=== PATIENT | female | born 1950 | race Caucasian/White ===

== ENCOUNTER 2017-10-24 14:54 | Inpatient (IN) | payer OTHER ==
[2017-10-24] MEDS: LABETALOL HCL 20MG INJ IV (21:28)
[2017-10-24] MEDS: SOD CHLORIDE 0.9% 1,000 ML IV ×3 (21:28→22:46)
[2017-10-24 21:30] LABS: ADD MAN DIFF? NO
[2017-10-24 21:40] LABS: WHITE BLOOD COUNT 7.3 10^3/ul (4.8-10.8)
[2017-10-24 21:40] LABS: BASOPHIL # 0.1 10^3/ul (0.0-0.1); BASOPHILS % 0.7 % (0.0-2.0); EOSINOPHILS # 0.2 10^3/ul (0.0-0.5); EOSINOPHILS % 2.1 % (0.0-7.0); HEMATOCRIT 28.4 % (37.0-47.0); HEMOGLOBIN 9.8 g/dl (12.0-16.0); LYMPHOCYTES # 2.3 10^3/ul (0.8-2.9); LYMPHOCYTES % 32.1 % (15.0-51.0); MEAN CORPUSCULAR HEMOGLOBIN 29.2 pg (29.0-33.0); MEAN CORPUSCULAR HGB CONC 34.5 g/dl (32.0-37.0); MEAN CORPUSCULAR VOLUME 84.5 fl (82.0-101.0); MEAN PLATELET VOLUME 10.5 fl (7.4-10.4); MONOCYTE # 0.5 10^3/ul (0.3-0.9); NEUTROPHIL # 4.2 10^3/ul (1.6-7.5); NEUTROPHILS % 57.3 % (39.0-77.0); PLATELET COUNT 228 10^3/UL (140-415); RED BLOOD COUNT 3.36 10^6/ul (4.20-5.40); RED CELL DISTRIBUTION WIDTH 12.5 % (11.5-14.5)
[2017-10-24 22:07] LABS: ANION GAP 15 (8-16); BLOOD UREA NITROGEN 24 mg/dl (7-20); CALCIUM 8.5 mg/dl (8.4-10.2); CARBON DIOXIDE 23 mmol/L (21-31); CHLORIDE 93 mmol/L (97-110); CREATININE 1.92 mg/dl (0.44-1.00); POTASSIUM 4.6 mmol/L (3.5-5.1); SODIUM 126 mmol/L (135-144)
[2017-10-24 22:08] LABS: Allen Test ACCEPTAB; MODE ROOM AIR; MetHgb Venous 0.6 %; Sample Type Blood venous; Site VENOUS LINE; Venous COHb 0.2 %; Venous Fraction OxyHgb 34.9 %; Venous Oxygen Sat 35.2 mmHG (55.0-75.0); Venous Total Hemglobin 11.2 g/dl
[2017-10-24 22:10] LABS: GLUCOSE 593 mg/dl (70-220)
[2017-10-24 22:18] LABS: B-TYPE NATRIURETIC PEPTIDE 2670 PG/ML (0-125)
[2017-10-24 23:09] LABS: ADD UMIC YES; UR ASCORBIC ACID NEGATIVE (NEGATIVE); UR BACTERIA MANY /HPF (NONE SEEN); UR BILIRUBIN (Dip) NEGATIVE (NEGATIVE); UR BLOOD (Dip) NEGATIVE (NEGATIVE); UR CLARITY CLOUDY (CLEAR); UR COLOR YELLOW (YELLOW); UR GLUCOSE (Dip) 3+ mg/dL (NEGATIVE); UR KETONES (Dip) NEGATIVE (NEGATIVE); UR LEUKOCYTE ESTERASE (Dip) 2+ Leu/ul (NEGATIVE); UR NITRITE (Dip) NEGATIVE (NEGATIVE); UR RBC 8 /HPF (0-5); UR SPECIFIC GRAVITY (Dip) 1.025 (1.003-1.030); UR SQUAMOUS EPITHELIAL CELL FEW /HPF (FEW); UR TOTAL PROTEIN (Dip) 3+ mg/dl (NEGATIVE); UR UROBILINOGEN (Dip) NEGATIVE (NEGATIVE); UR WBC > 182 /HPF (0-5)
[2017-10-25] MEDS: CEFEPIME 1GM/50 ML (PMX) 50 ML IVPB (00:15)
[2017-10-25] MEDS: INSULIN LISPRO 100 UNIT/ML VIAL SC (00:17)
[2017-10-25] MEDS ORDERED: ONDANSETRON 4 MG INJ IV (00:30)
[2017-10-25] MEDS ORDERED: PANTOPRAZOLE (EC) 40 MG TAB PO (00:30)
[2017-10-25] MEDS ORDERED: BISACODYL (EC) 5 MG TAB PO (00:30)
[2017-10-25] MEDS ORDERED: NACL 0.9% 3 ML SYG IV (00:30)
[2017-10-25] MEDS ORDERED: ACETAMINOPHEN 325 MG TAB PO (00:30)
[2017-10-25] MEDS ORDERED: GLUCOSE GEL 15 GRAM TUBE BUCCAL (01:00)
[2017-10-25] MEDS ORDERED: GLUCAGON 1 MG INJ IM (01:00)
[2017-10-25] MEDS ORDERED: GLUCOSE GEL 15 GRAM TUBE PO ×2 (01:00)
[2017-10-25] MEDS ORDERED: DEXTROSE 50% 50 ML SYRINGE IV ×2 (01:00)
[2017-10-25] MEDS: ACCU-CHEK XX (02:00)
[2017-10-25] MEDS: INSULIN ASPART [NOVOLOG] 3 ML PEN SC ×7 (03:30→20:15)
[2017-10-25] MEDS: hydrALAzine 20 MG INJ IV ×2 (03:40→15:37)
[2017-10-25 03:46] LABS: ANION GAP 12 (8-16); BLOOD UREA NITROGEN 21 mg/dl (7-20); CALCIUM 7.8 mg/dl (8.4-10.2); CARBON DIOXIDE 23 mmol/L (21-31); CHLORIDE 106 mmol/L (97-110); CREATININE 1.59 mg/dl (0.44-1.00); GLUCOSE 305 mg/dl (70-220); POTASSIUM 4.1 mmol/L (3.5-5.1); SODIUM 137 mmol/L (135-144)
[2017-10-25] MEDS: morphine 2 MG INJ IV (07:31)
[2017-10-25] MEDS: CYCLOBENZAPRINE 10 MG TAB PO (08:00)
[2017-10-25 08:34] LABS: ANION GAP 12 (8-16); BLOOD UREA NITROGEN 20 mg/dl (7-20); CALCIUM 7.9 mg/dl (8.4-10.2); CARBON DIOXIDE 21 mmol/L (21-31); CHLORIDE 108 mmol/L (97-110); CREATININE 1.43 mg/dl (0.44-1.00); GLUCOSE 163 mg/dl (70-220); POTASSIUM 4.1 mmol/L (3.5-5.1); SODIUM 137 mmol/L (135-144)
[2017-10-25] MEDS: CEFTRIAXONE 1 GM/50 ML (PMX) 50 ML IVPB (09:00)
[2017-10-25] MEDS ORDERED: INSULIN GLARGINE [LANtus] 3 ML PEN SC (09:00)
[2017-10-25] MEDS: ASPIRIN (EC) 81 MG TAB PO (09:38)
[2017-10-25 10:15] LABS: HEMOGLOBIN A1C 12.7 % (0-5.9)
[2017-10-25] MEDS ORDERED: INSULIN ASPART [NOVOLOG] 3 ML PEN SC (11:50)
[2017-10-25 11:53] LABS: ANION GAP 10 (8-16); BLOOD UREA NITROGEN 19 mg/dl (7-20); CALCIUM 8.5 mg/dl (8.4-10.2); CARBON DIOXIDE 21 mmol/L (21-31); CHLORIDE 105 mmol/L (97-110); CREATININE 1.48 mg/dl (0.44-1.00); GLUCOSE 272 mg/dl (70-220); POTASSIUM 4.2 mmol/L (3.5-5.1); SODIUM 132 mmol/L (135-144)
[2017-10-25 16:36] LABS: ANION GAP 11 (8-16); BLOOD UREA NITROGEN 20 mg/dl (7-20); CALCIUM 8.1 mg/dl (8.4-10.2); CARBON DIOXIDE 22 mmol/L (21-31); CHLORIDE 105 mmol/L (97-110); CREATININE 1.51 mg/dl (0.44-1.00); GLUCOSE 244 mg/dl (70-220); POTASSIUM 4.4 mmol/L (3.5-5.1); SODIUM 134 mmol/L (135-144)
[2017-10-25] MEDS: ATORVASTATIN 80 MG TAB PO (20:15)
[2017-10-26] MEDS: ACCU-CHEK XX (02:00)
[2017-10-26] MEDS ORDERED: ACCU-CHEK XX (02:00)
[2017-10-26 08:01] LABS: ADD MAN DIFF? NO
[2017-10-26 08:03] LABS: BASOPHILS % 0.5 % (0.0-2.0); EOSINOPHILS # 0.3 10^3/ul (0.0-0.5); EOSINOPHILS % 3.2 % (0.0-7.0); HEMATOCRIT 28.4 % (37.0-47.0); HEMOGLOBIN 9.8 g/dl (12.0-16.0); LYMPHOCYTES # 2.4 10^3/ul (0.8-2.9); LYMPHOCYTES % 30.2 % (15.0-51.0); MEAN CORPUSCULAR HEMOGLOBIN 29.1 pg (29.0-33.0); MEAN CORPUSCULAR HGB CONC 34.5 g/dl (32.0-37.0); MEAN CORPUSCULAR VOLUME 84.3 fl (82.0-101.0); MEAN PLATELET VOLUME 10.5 fl (7.4-10.4); MONOCYTE # 0.5 10^3/ul (0.3-0.9); MONOCYTES % 5.6 % (0.0-11.0); NEUTROPHIL # 4.8 10^3/ul (1.6-7.5); NEUTROPHILS % 59.9 % (39.0-77.0); PLATELET COUNT 229 10^3/UL (140-415); RED BLOOD COUNT 3.37 10^6/ul (4.20-5.40); RED CELL DISTRIBUTION WIDTH 12.8 % (11.5-14.5)
[2017-10-26 08:22] LABS: ALANINE AMINOTRANSFERASE 21 IU/L (13-69); ALBUMIN 3.1 g/dl (3.3-4.9); ALBUMIN/GLOBULIN RATIO 0.93; ALKALINE PHOSPHATASE 87 IU/L (42-121); ANION GAP 14 (8-16); ASPARTATE AMINO TRANSFERASE 14 IU/L (15-46); BILIRUBIN,INDIRECT 0.1 mg/dl (0-1.1); BILIRUBIN,TOTAL 0.1 mg/dl (0.2-1.3); BLOOD UREA NITROGEN 19 mg/dl (7-20); CALCIUM 8.7 mg/dl (8.4-10.2); CARBON DIOXIDE 22 mmol/L (21-31); CHLORIDE 105 mmol/L (97-110); CREATININE 1.64 mg/dl (0.44-1.00); GLUCOSE 229 mg/dl (70-220); POTASSIUM 4.7 mmol/L (3.5-5.1); SODIUM 136 mmol/L (135-144); TOTAL PROTEIN 6.4 g/dl (6.1-8.1)
[2017-10-26 08:37] LABS: INR 0.95; PROTIME 12.8 Sec (11.9-14.9)
[2017-10-26 08:38] LABS: PARTIAL THROMBOPLASTIN TIME 28.1 Sec (25.0-35.0)
[2017-10-26] MEDS: ASPIRIN (EC) 81 MG TAB PO (08:46)
[2017-10-26] MEDS: INSULIN ASPART [NOVOLOG] 3 ML PEN SC ×7 (08:48→21:06)
[2017-10-26] MEDS: INSULIN GLARGINE [LANtus] 3 ML PEN SC (08:50)
[2017-10-26] MEDS: CEFTRIAXONE 1 GM/50 ML (PMX) 50 ML IVPB (13:40)
[2017-10-26 15:50] LABS: IRON 53 ug/dl (35-150)
[2017-10-26 16:00] LABS: % IRON SATURATION 28 % SAT (22-52); TOTAL IRON BINDING CAPACITY 187 ug/dl (241-421)
[2017-10-26] MEDS: hydrALAzine 20 MG INJ IV (16:11)
[2017-10-26 16:23] LABS: FERRITIN 30.5 ng/ml (11.1-264.0)
[2017-10-26] MEDS: ATORVASTATIN 80 MG TAB PO (20:54)
[2017-10-27] MEDS: ACCU-CHEK XX (02:00)
[2017-10-27 06:43] LABS: ADD MAN DIFF? NO
[2017-10-27 06:51] LABS: BASOPHILS % 0.4 % (0.0-2.0); EOSINOPHILS # 0.2 10^3/ul (0.0-0.5); EOSINOPHILS % 3.3 % (0.0-7.0); HEMATOCRIT 27.2 % (37.0-47.0); HEMOGLOBIN 9.3 g/dl (12.0-16.0); LYMPHOCYTES # 2.5 10^3/ul (0.8-2.9); LYMPHOCYTES % 34.1 % (15.0-51.0); MEAN CORPUSCULAR HEMOGLOBIN 29.3 pg (29.0-33.0); MEAN CORPUSCULAR HGB CONC 34.2 g/dl (32.0-37.0); MEAN CORPUSCULAR VOLUME 85.8 fl (82.0-101.0); MEAN PLATELET VOLUME 10.3 fl (7.4-10.4); MONOCYTE # 0.5 10^3/ul (0.3-0.9); MONOCYTES % 7.1 % (0.0-11.0); NEUTROPHILS % 54.6 % (39.0-77.0); PLATELET COUNT 206 10^3/UL (140-415); RED BLOOD COUNT 3.17 10^6/ul (4.20-5.40); RED CELL DISTRIBUTION WIDTH 12.7 % (11.5-14.5)
[2017-10-27 06:51] LABS: WHITE BLOOD COUNT 7.3 10^3/ul (4.8-10.8)
[2017-10-27 07:13] LABS: ANION GAP 9 (8-16); BLOOD UREA NITROGEN 19 mg/dl (7-20); CALCIUM 8.9 mg/dl (8.4-10.2); CARBON DIOXIDE 25 mmol/L (21-31); CHLORIDE 106 mmol/L (97-110); GLUCOSE 185 mg/dl (70-220); POTASSIUM 4.5 mmol/L (3.5-5.1); SODIUM 135 mmol/L (135-144)
[2017-10-27 07:21] LABS: PHOSPHORUS 4.7 mg/dl (2.5-4.9)
[2017-10-27 07:21] LABS: MAGNESIUM 1.8 mg/dl (1.7-2.5)
[2017-10-27] MEDS: ASPIRIN (EC) 81 MG TAB PO (08:18)
[2017-10-27] MEDS: INSULIN ASPART [NOVOLOG] 3 ML PEN SC ×7 (08:22→20:33)
[2017-10-27] MEDS: INSULIN GLARGINE [LANtus] 3 ML PEN SC (08:24)
[2017-10-27] MEDS: INFLUENZA VIRUS VACCINE 0.5 ML (DISPENSING) IM* (08:27)
[2017-10-27] MEDS: CEFTRIAXONE 1 GM/50 ML (PMX) 50 ML IVPB (14:01)
[2017-10-27] MEDS: ACETAMINOPHEN 325 MG TAB PO (14:10)
[2017-10-27] MEDS: hydrALAzine 20 MG INJ IV ×2 (14:44→17:49)
[2017-10-27] MEDS: LISINOPRIL 5 MG TAB PO (15:53)
[2017-10-27] MEDS: ONDANSETRON 4 MG INJ IV (17:45)
[2017-10-27] MEDS: HYDROCODONE/APAP (5/325) TAB PO (17:47)
[2017-10-27] MEDS: ATORVASTATIN 80 MG TAB PO (20:35)
[2017-10-28] MEDS: HYDROCODONE/APAP (5/325) TAB PO ×3 (00:42→23:51)
[2017-10-28] MEDS: ONDANSETRON 4 MG INJ IV (00:56)
[2017-10-28] MEDS: ACCU-CHEK XX (02:00)
[2017-10-28 06:49] LABS: ADD MAN DIFF? NO
[2017-10-28 06:51] LABS: WHITE BLOOD COUNT 9.3 10^3/ul (4.8-10.8)
[2017-10-28 06:51] LABS: BASOPHILS % 0.3 % (0.0-2.0); EOSINOPHILS % 0.4 % (0.0-7.0); HEMATOCRIT 27.5 % (37.0-47.0); HEMOGLOBIN 9.2 g/dl (12.0-16.0); LYMPHOCYTES # 1.9 10^3/ul (0.8-2.9); LYMPHOCYTES % 20.2 % (15.0-51.0); MEAN CORPUSCULAR HEMOGLOBIN 28.9 pg (29.0-33.0); MEAN CORPUSCULAR HGB CONC 33.5 g/dl (32.0-37.0); MEAN CORPUSCULAR VOLUME 86.5 fl (82.0-101.0); MEAN PLATELET VOLUME 10.7 fl (7.4-10.4); MONOCYTE # 0.3 10^3/ul (0.3-0.9); MONOCYTES % 3.2 % (0.0-11.0); NEUTROPHILS % 75.5 % (39.0-77.0); PLATELET COUNT 219 10^3/UL (140-415); RED BLOOD COUNT 3.18 10^6/ul (4.20-5.40); RED CELL DISTRIBUTION WIDTH 12.8 % (11.5-14.5)
[2017-10-28 07:21] LABS: PHOSPHORUS 5.1 mg/dl (2.5-4.9)
[2017-10-28 07:21] LABS: MAGNESIUM 1.7 mg/dl (1.7-2.5)
[2017-10-28 07:29] LABS: ANION GAP 15 (8-16); BLOOD UREA NITROGEN 20 mg/dl (7-20); CALCIUM 8.4 mg/dl (8.4-10.2); CARBON DIOXIDE 21 mmol/L (21-31); CHLORIDE 102 mmol/L (97-110); CREATININE 1.73 mg/dl (0.44-1.00); GLUCOSE 205 mg/dl (70-220); POTASSIUM 4.5 mmol/L (3.5-5.1); SODIUM 133 mmol/L (135-144)
[2017-10-28] MEDS: INSULIN ASPART [NOVOLOG] 3 ML PEN SC ×7 (07:55→20:16)
[2017-10-28] MEDS: INSULIN GLARGINE [LANtus] 3 ML PEN SC (07:55)
[2017-10-28] MEDS: LINAGLIPTIN 5 MG TABLET PO (08:31)
[2017-10-28] MEDS: ASPIRIN (EC) 81 MG TAB PO (08:32)
[2017-10-28] MEDS: LISINOPRIL 5 MG TAB PO (08:32)
[2017-10-28] MEDS: CEFTRIAXONE 1 GM/50 ML (PMX) 50 ML IVPB (13:38)
[2017-10-28] MEDS: hydrALAzine 20 MG INJ IV (15:44)
[2017-10-28] MEDS ORDERED: ACET/BUTAL/CAFF TAB PO (17:00)
[2017-10-28] MEDS: SOD CHLORIDE 0.9% 1,000 ML IV (17:01)
[2017-10-28 17:41] LABS: CREATININE, RANDOM URINE 61 mg/dL (20-320); MICROALBUMIN 436.4 mg/dL; MICROALBUMIN/CREATININE RATIO 7154 (<30)
[2017-10-28] MEDS: ATORVASTATIN 80 MG TAB PO (20:16)
[2017-10-29] MEDS: ACCU-CHEK XX (02:00)
[2017-10-29 06:55] LABS: ADD MAN DIFF? NO
[2017-10-29 06:59] LABS: BASOPHILS % 0.5 % (0.0-2.0); EOSINOPHILS # 0.2 10^3/ul (0.0-0.5); EOSINOPHILS % 2.1 % (0.0-7.0); HEMATOCRIT 25.7 % (37.0-47.0); HEMOGLOBIN 8.9 g/dl (12.0-16.0); LYMPHOCYTES # 2.9 10^3/ul (0.8-2.9); LYMPHOCYTES % 35.8 % (15.0-51.0); MEAN CORPUSCULAR HEMOGLOBIN 29.9 pg (29.0-33.0); MEAN CORPUSCULAR HGB CONC 34.6 g/dl (32.0-37.0); MEAN CORPUSCULAR VOLUME 86.2 fl (82.0-101.0); MEAN PLATELET VOLUME 10.2 fl (7.4-10.4); MONOCYTE # 0.7 10^3/ul (0.3-0.9); MONOCYTES % 8.6 % (0.0-11.0); NEUTROPHIL # 4.2 10^3/ul (1.6-7.5); NEUTROPHILS % 52.6 % (39.0-77.0); PLATELET COUNT 202 10^3/UL (140-415); RED BLOOD COUNT 2.98 10^6/ul (4.20-5.40); RED CELL DISTRIBUTION WIDTH 12.6 % (11.5-14.5)
[2017-10-29 07:17] LABS: ANION GAP 12 (8-16); BLOOD UREA NITROGEN 22 mg/dl (7-20); CALCIUM 8.4 mg/dl (8.4-10.2); CARBON DIOXIDE 23 mmol/L (21-31); CHLORIDE 102 mmol/L (97-110); CREATININE 2.27 mg/dl (0.44-1.00); GLUCOSE 135 mg/dl (70-220); POTASSIUM 4.2 mmol/L (3.5-5.1); SODIUM 133 mmol/L (135-144)
[2017-10-29] MEDS: SOD CHLORIDE 0.9% 1,000 ML IV ×2 (07:18→16:46)
[2017-10-29] MEDS: INSULIN GLARGINE [LANtus] 3 ML PEN SC (08:52)
[2017-10-29] MEDS: INSULIN ASPART [NOVOLOG] 3 ML PEN SC ×7 (08:53→20:28)
[2017-10-29] MEDS: ASPIRIN (EC) 81 MG TAB PO (08:59)
[2017-10-29] MEDS: LISINOPRIL 5 MG TAB PO (08:59)
[2017-10-29] MEDS: LINAGLIPTIN 5 MG TABLET PO (08:59)
[2017-10-29] MEDS: CEFTRIAXONE 1 GM/50 ML (PMX) 50 ML IVPB (13:12)
[2017-10-29 17:28] LABS: HAAIG REFLEX REFLEX FILED
[2017-10-29 18:13] LABS: COMPLEMENT C3 103 mg/dl (88-165); COMPLEMENT C4 37 mg/dl (14-44)
[2017-10-29 18:36] LABS: HEPATITIS B SURFACE ANTIGEN NEGATIVE (NEGATIVE)
[2017-10-29 18:54] LABS: HEPATITIS B CORE ANTIBODY NEGATIVE (NEGATIVE); HEPATITIS C VIRAL ANTIBODY NEGATIVE (NEGATIVE)
[2017-10-29 19:54] LABS: RHEUMATOID FACTOR NEGATIVE (NEGATIVE)
[2017-10-29] MEDS: ATORVASTATIN 80 MG TAB PO (20:24)
[2017-10-29] MEDS ORDERED: LISINOPRIL 5 MG TAB PO (21:00)
[2017-10-30] MEDS: HYDROCODONE/APAP (5/325) TAB PO (00:53)
[2017-10-30] MEDS: ACCU-CHEK XX ×2 (02:00→21:47)
[2017-10-30] MEDS: INSULIN ASPART [NOVOLOG] 3 ML PEN SC ×7 (08:16→21:00)
[2017-10-30] MEDS: INSULIN GLARGINE [LANtus] 3 ML PEN SC (08:17)
[2017-10-30] MEDS: ASPIRIN (EC) 81 MG TAB PO (08:33)
[2017-10-30] MEDS: LINAGLIPTIN 5 MG TABLET PO (08:34)
[2017-10-30 08:51] LABS: ANION GAP 11 (8-16); BLOOD UREA NITROGEN 27 mg/dl (7-20); CALCIUM 8.8 mg/dl (8.4-10.2); CARBON DIOXIDE 23 mmol/L (21-31); CHLORIDE 103 mmol/L (97-110); CREATININE 2.44 mg/dl (0.44-1.00); GLUCOSE 144 mg/dl (70-220); POTASSIUM 4.4 mmol/L (3.5-5.1); SODIUM 133 mmol/L (135-144)
[2017-10-30 08:53] LABS: PHOSPHORUS 5.8 mg/dl (2.5-4.9)
[2017-10-30 08:53] LABS: MAGNESIUM 1.9 mg/dl (1.7-2.5)
[2017-10-30 11:10] LABS: ADD UMIC YES; UR ASCORBIC ACID NEGATIVE (NEGATIVE); UR BACTERIA FEW /HPF (NONE SEEN); UR BILIRUBIN (Dip) NEGATIVE (NEGATIVE); UR BLOOD (Dip) NEGATIVE (NEGATIVE); UR BUDDING YEAST FEW /HPF (NONE SEEN); UR CLARITY SLIGHTLY CLOUDY (CLEAR); UR COLOR YELLOW (YELLOW); UR GLUCOSE (Dip) 1+ mg/dL (NEGATIVE); UR KETONES (Dip) NEGATIVE (NEGATIVE); UR LEUKOCYTE ESTERASE (Dip) 1+ Leu/ul (NEGATIVE); UR NITRITE (Dip) NEGATIVE (NEGATIVE); UR NONSQUAMOUS EPITHELIAL CELL 2 /HPF (NONE SEEN); UR RBC 2 /HPF (0-5); UR SPECIFIC GRAVITY (Dip) 1.015 (1.003-1.030); UR SQUAMOUS EPITHELIAL CELL FEW /HPF (FEW); UR TOTAL PROTEIN (Dip) 3+ mg/dl (NEGATIVE); UR UROBILINOGEN (Dip) NEGATIVE (NEGATIVE); UR WBC 98 /HPF (0-5)
[2017-10-30 11:47] LABS: SODIUM,URINE RANDOM 47 mmol/L (30-90)
[2017-10-30 11:47] LABS: CREATININE,URINE RANDOM 112.06 mg/dl (20-320)
[2017-10-30] MEDS: LACTATED RINGER'S 500 ML IV (13:17)
[2017-10-30] MEDS: CEFTRIAXONE 1 GM/50 ML (PMX) 50 ML IVPB (13:17)
[2017-10-30] MEDS: hydrALAzine 20 MG INJ IV (18:19)
[2017-10-30] MEDS: ATORVASTATIN 80 MG TAB PO (21:37)
[2017-10-30] MEDS: DOCUSATE SODIUM 100 MG CAP PO (21:47)
[2017-10-31] MEDS: INSULIN ASPART [NOVOLOG] 3 ML PEN SC ×4 (07:55→11:39)
[2017-10-31 08:21] LABS: ADD MAN DIFF? NO
[2017-10-31 08:32] LABS: BASOPHIL # 0.1 10^3/ul (0.0-0.1); BASOPHILS % 0.7 % (0.0-2.0); EOSINOPHILS # 0.3 10^3/ul (0.0-0.5); EOSINOPHILS % 3.6 % (0.0-7.0); HEMATOCRIT 24.6 % (37.0-47.0); HEMOGLOBIN 8.3 g/dl (12.0-16.0); LYMPHOCYTES # 2.4 10^3/ul (0.8-2.9); LYMPHOCYTES % 34.5 % (15.0-51.0); MEAN CORPUSCULAR HEMOGLOBIN 29.4 pg (29.0-33.0); MEAN CORPUSCULAR HGB CONC 33.7 g/dl (32.0-37.0); MEAN CORPUSCULAR VOLUME 87.2 fl (82.0-101.0); MEAN PLATELET VOLUME 11.3 fl (7.4-10.4); MONOCYTE # 0.8 10^3/ul (0.3-0.9); MONOCYTES % 10.9 % (0.0-11.0); NEUTROPHIL # 3.5 10^3/ul (1.6-7.5); NEUTROPHILS % 49.9 % (39.0-77.0); PLATELET COUNT 194 10^3/UL (140-415); RED BLOOD COUNT 2.82 10^6/ul (4.20-5.40); RED CELL DISTRIBUTION WIDTH 12.7 % (11.5-14.5)
[2017-10-31] MEDS: INSULIN GLARGINE [LANtus] 3 ML PEN SC (08:38)
[2017-10-31 08:52] LABS: ANION GAP 13 (8-16); BLOOD UREA NITROGEN 28 mg/dl (7-20); CALCIUM 8.2 mg/dl (8.4-10.2); CARBON DIOXIDE 22 mmol/L (21-31); CHLORIDE 105 mmol/L (97-110); CREATININE 2.25 mg/dl (0.44-1.00); GLUCOSE 102 mg/dl (70-220); PHOSPHORUS 5.1 mg/dl (2.5-4.9); POTASSIUM 4.9 mmol/L (3.5-5.1); SODIUM 135 mmol/L (135-144)
[2017-10-31] MEDS: ASPIRIN (EC) 81 MG TAB PO (09:18)
[2017-10-31] MEDS: LINAGLIPTIN 5 MG TABLET PO (09:18)
[2017-10-31] MEDS: AMLODIPINE 5 MG TAB PO (11:30)
[2017-10-31 14:26] LABS: ANCA SCREEN NEGATIVE (NEGATIVE)
[2017-10-31 16:36] LABS: CREATININE, RANDOM URINE 132 mg/dL (20-320); MICROALBUMIN 538.5 mg/dL; MICROALBUMIN/CREATININE RATIO 4080 (<30); MYELOPEROXIDASE ANTIBODY <1.0 AI; PROTEINASE-3 ANTIBODY <1.0 AI
[2017-10-31 19:37] LABS: ANA SCREEN POSITIVE (NEGATIVE)
[2017-11-01 12:41] LABS: ANA PATTERN HOMOGENEOUS
[2017-11-01 14:57] LABS: ANTI-DNA (DOUBLE STRANDED) 134 U/mL (< 301)
== END 2017-10-31 16:20 | disposition home or self-care (01) | DRG 638 ==
LOC: TEL 10-25 00:18 → E/R 14:54
PROVIDERS: Family Medicine
DX: E11.65 Type 2 diabetes mellitus with hyperglycemia (principal); N39.0 Urinary tract infection, site not specified; N17.9 Acute kidney failure, unspecified; E87.1 Hypo-osmolality and hyponatremia; E86.0 Dehydration; I16.0 Hypertensive urgency; I12.9 Hypertensive chronic kidney disease with stage 1 through stage 4 chronic kidney disease, or unspecified chronic kidney disease; E11.22 Type 2 diabetes mellitus with diabetic chronic kidney disease; I25.10 Atherosclerotic heart disease of native coronary artery without angina pectoris; Z95.1 Presence of aortocoronary bypass graft; N18.3 Chronic kidney disease, stage 3 (moderate); D63.1 Anemia in chronic kidney disease; E78.5 Hyperlipidemia, unspecified; I51.89 Other ill-defined heart diseases; B96.20 Unspecified Escherichia coli [E. coli] as the cause of diseases classified elsewhere; M89.9 Disorder of bone, unspecified
CPT/HCPCS: 36415; 70450; 71045; 76775; 80048; 80053; 81001; 81003; 82043; 82595; 82728; 82803; 82962; 83036; 83540; 83735; 83880; 84100; 84155; 84300; 84443; 84484; 85025; 85610; 85730; 86021; 86038; 86160; 86226; 86430; 86704; 86709; 86803; 87086; 87340; 90686; 93005; 93306; 96361; 96365; 96372; 96375; 99285-25

== ENCOUNTER 2017-12-27 13:19 | Inpatient (IN) | payer OTHER ==
[2017-12-27] MEDS: SOD CHLORIDE 0.9% 500 ML IV (14:13)
[2017-12-27 14:17] LABS: ADD MAN DIFF? NO
[2017-12-27 14:23] LABS: WHITE BLOOD COUNT 8.2 10^3/ul (4.8-10.8)
[2017-12-27 14:23] LABS: BASOPHILS % 0.5 % (0.0-2.0); EOSINOPHILS # 0.3 10^3/ul (0.0-0.5); HEMATOCRIT 24.6 % (37.0-47.0); HEMOGLOBIN 8.3 g/dl (12.0-16.0); LYMPHOCYTES # 3.1 10^3/ul (0.8-2.9); LYMPHOCYTES % 37.7 % (15.0-51.0); MEAN CORPUSCULAR HEMOGLOBIN 29.6 pg (29.0-33.0); MEAN CORPUSCULAR HGB CONC 33.7 g/dl (32.0-37.0); MEAN CORPUSCULAR VOLUME 87.9 fl (82.0-101.0); MEAN PLATELET VOLUME 10.7 fl (7.4-10.4); MONOCYTE # 0.7 10^3/ul (0.3-0.9); MONOCYTES % 8.1 % (0.0-11.0); NEUTROPHIL # 4.1 10^3/ul (1.6-7.5); NEUTROPHILS % 50.2 % (39.0-77.0); PLATELET COUNT 196 10^3/UL (140-415); RED CELL DISTRIBUTION WIDTH 12.4 % (11.5-14.5)
[2017-12-27 14:37] LABS: ADD UMIC YES; UR ASCORBIC ACID NEGATIVE (NEGATIVE); UR BACTERIA FEW /HPF (NONE SEEN); UR BILIRUBIN (Dip) NEGATIVE (NEGATIVE); UR BLOOD (Dip) NEGATIVE (NEGATIVE); UR CLARITY CLEAR (CLEAR); UR COLOR YELLOW (YELLOW); UR GLUCOSE (Dip) 2+ mg/dL (NEGATIVE); UR KETONES (Dip) NEGATIVE (NEGATIVE); UR LEUKOCYTE ESTERASE (Dip) NEGATIVE Leu/ul (NEGATIVE); UR NITRITE (Dip) NEGATIVE (NEGATIVE); UR RBC 2 /HPF (0-5); UR SPECIFIC GRAVITY (Dip) 1.012 (1.003-1.030); UR TOTAL PROTEIN (Dip) 3+ mg/dl (NEGATIVE); UR UROBILINOGEN (Dip) NEGATIVE (NEGATIVE); UR WBC 27 /HPF (0-5)
[2017-12-27 14:42] LABS: ALANINE AMINOTRANSFERASE 18 IU/L (13-69); ALBUMIN 3.3 g/dl (3.3-4.9); ALBUMIN/GLOBULIN RATIO 0.91; ALKALINE PHOSPHATASE 76 IU/L (42-121); ANION GAP 20 (8-16); ASPARTATE AMINO TRANSFERASE 14 IU/L (15-46); BLOOD UREA NITROGEN 32 mg/dl (7-20); CALCIUM 8.5 mg/dl (8.4-10.2); CARBON DIOXIDE 19 mmol/L (21-31); CHLORIDE 112 mmol/L (97-110); CREATININE 2.87 mg/dl (0.44-1.00); GLUCOSE 132 mg/dl (70-220); LIPASE 46 U/L (23-300); POTASSIUM 4.9 mmol/L (3.5-5.1); SODIUM 146 mmol/L (135-144); TOTAL PROTEIN 6.9 g/dl (6.1-8.1)
[2017-12-27 14:58] LABS: TROPONIN-I < 0.012 ng/ml (0.00-0.12)
[2017-12-27] MEDS ORDERED: ONDANSETRON 4 MG INJ IV (15:30)
[2017-12-27] MEDS ORDERED: MAGNESIUM HYDROXIDE 30ML CUP PO (15:30)
[2017-12-27] MEDS ORDERED: morphine 2 MG INJ IV (15:30)
[2017-12-27] MEDS ORDERED: NACL 0.9% 3 ML SYG IV (15:30)
[2017-12-27] MEDS ORDERED: HYDROCODONE/APAP (5/325) TAB PO (15:30)
[2017-12-27] MEDS: CEPHALEXIN 500 MG CAP PO (15:32)
[2017-12-27] MEDS ORDERED: GLUCOSE GEL 15 GRAM TUBE BUCCAL (16:00)
[2017-12-27] MEDS ORDERED: GLUCAGON 1 MG INJ IM (16:00)
[2017-12-27] MEDS ORDERED: DEXTROSE 50% 50 ML SYRINGE IV ×2 (16:00)
[2017-12-27] MEDS ORDERED: GLUCOSE GEL 15 GRAM TUBE PO ×2 (16:00)
[2017-12-27 16:44] LABS: B-TYPE NATRIURETIC PEPTIDE 2950 PG/ML (0-125)
[2017-12-27] MEDS: FUROSEMIDE 40 MG INJ IV (17:28)
[2017-12-27] MEDS: INSULIN ASPART [NOVOLOG] 3 ML PEN SC ×3 (17:30→20:33)
[2017-12-27 18:36] LABS: SODIUM,URINE RANDOM 79 mmol/L (30-90)
[2017-12-27 18:38] LABS: CREATININE,URINE RANDOM 67.57 mg/dl (20-320)
[2017-12-27] MEDS: ATORVASTATIN 80 MG TAB PO (20:33)
[2017-12-27] MEDS: INSULIN GLARGINE [LANtus] 3 ML PEN SC (20:33)
[2017-12-27] MEDS: HEPARIN 5,000 UNIT/0.5 ML VIAL SC (22:06)
[2017-12-28] MEDS: ACCU-CHEK XX (02:00)
[2017-12-28 05:52] LABS: ADD MAN DIFF? NO
[2017-12-28 05:54] LABS: BASOPHILS % 0.3 % (0.0-2.0); EOSINOPHILS # 0.2 10^3/ul (0.0-0.5); EOSINOPHILS % 2.9 % (0.0-7.0); HEMATOCRIT 23.2 % (37.0-47.0); HEMOGLOBIN 7.8 g/dl (12.0-16.0); LYMPHOCYTES # 2.5 10^3/ul (0.8-2.9); LYMPHOCYTES % 34.4 % (15.0-51.0); MEAN CORPUSCULAR HEMOGLOBIN 29.3 pg (29.0-33.0); MEAN CORPUSCULAR HGB CONC 33.6 g/dl (32.0-37.0); MEAN CORPUSCULAR VOLUME 87.2 fl (82.0-101.0); MEAN PLATELET VOLUME 11.3 fl (7.4-10.4); MONOCYTE # 0.7 10^3/ul (0.3-0.9); MONOCYTES % 9.6 % (0.0-11.0); NEUTROPHIL # 3.9 10^3/ul (1.6-7.5); NEUTROPHILS % 52.4 % (39.0-77.0); PLATELET COUNT 172 10^3/UL (140-415); RED BLOOD COUNT 2.66 10^6/ul (4.20-5.40); RED CELL DISTRIBUTION WIDTH 12.2 % (11.5-14.5)
[2017-12-28 05:54] LABS: WHITE BLOOD COUNT 7.4 10^3/ul (4.8-10.8)
[2017-12-28 06:17] LABS: ALANINE AMINOTRANSFERASE 22 IU/L (13-69); ALBUMIN 2.8 g/dl (3.3-4.9); ALBUMIN/GLOBULIN RATIO 0.82; ALKALINE PHOSPHATASE 73 IU/L (42-121); ANION GAP 15 (8-16); ASPARTATE AMINO TRANSFERASE 11 IU/L (15-46); BLOOD UREA NITROGEN 34 mg/dl (7-20); CALCIUM 8.1 mg/dl (8.4-10.2); CARBON DIOXIDE 20 mmol/L (21-31); CHLORIDE 110 mmol/L (97-110); CREATININE 2.87 mg/dl (0.44-1.00); GLUCOSE 136 mg/dl (70-220); MAGNESIUM 1.7 mg/dl (1.7-2.5); POTASSIUM 4.4 mmol/L (3.5-5.1); SODIUM 141 mmol/L (135-144); TOTAL PROTEIN 6.2 g/dl (6.1-8.1)
[2017-12-28] MEDS: HEPARIN 5,000 UNIT/0.5 ML VIAL SC ×3 (06:17→22:00)
[2017-12-28 08:25] LABS: HEMOGLOBIN A1C 8.8 % (0-5.9)
[2017-12-28] MEDS: INSULIN ASPART [NOVOLOG] 3 ML PEN SC ×7 (08:29→20:26)
[2017-12-28] MEDS: LINAGLIPTIN 5 MG TABLET PO (08:30)
[2017-12-28] MEDS: ASPIRIN (EC) 81 MG TAB PO (08:30)
[2017-12-28] MEDS ORDERED: PREGABALIN 25 MG CAP PO (09:00)
[2017-12-28] MEDS ORDERED: AMLODIPINE 5 MG TAB PO (13:00)
[2017-12-28] MEDS: CIPROFLOXACIN 0.3% 2.5 ML OPH RIGHT EYE ×2 (17:33→20:24)
[2017-12-28] MEDS: ACETAMINOPHEN 325 MG TAB PO (19:09)
[2017-12-28] MEDS: INSULIN GLARGINE [LANtus] 3 ML PEN SC (20:24)
[2017-12-28] MEDS: ATORVASTATIN 80 MG TAB PO (20:24)
[2017-12-28] MEDS: hydrALAzine 20 MG INJ IV (20:36)
[2017-12-29] MEDS: ACCU-CHEK XX (02:00)
[2017-12-29 05:36] LABS: ADD MAN DIFF? NO
[2017-12-29 05:46] LABS: WHITE BLOOD COUNT 6.9 10^3/ul (4.8-10.8)
[2017-12-29 05:46] LABS: BASOPHILS % 0.3 % (0.0-2.0); EOSINOPHILS # 0.2 10^3/ul (0.0-0.5); EOSINOPHILS % 3.2 % (0.0-7.0); HEMATOCRIT 23.9 % (37.0-47.0); HEMOGLOBIN 8.2 g/dl (12.0-16.0); LYMPHOCYTES # 2.4 10^3/ul (0.8-2.9); LYMPHOCYTES % 34.3 % (15.0-51.0); MEAN CORPUSCULAR HEMOGLOBIN 29.4 pg (29.0-33.0); MEAN CORPUSCULAR HGB CONC 34.3 g/dl (32.0-37.0); MEAN CORPUSCULAR VOLUME 85.7 fl (82.0-101.0); MEAN PLATELET VOLUME 11.3 fl (7.4-10.4); MONOCYTE # 0.7 10^3/ul (0.3-0.9); MONOCYTES % 9.7 % (0.0-11.0); NEUTROPHIL # 3.6 10^3/ul (1.6-7.5); NEUTROPHILS % 52.1 % (39.0-77.0); PLATELET COUNT 171 10^3/UL (140-415); RED BLOOD COUNT 2.79 10^6/ul (4.20-5.40); RED CELL DISTRIBUTION WIDTH 12.2 % (11.5-14.5)
[2017-12-29 06:23] LABS: ANION GAP 15 (8-16); BLOOD UREA NITROGEN 36 mg/dl (7-20); CALCIUM 8.8 mg/dl (8.4-10.2); CARBON DIOXIDE 22 mmol/L (21-31); CHLORIDE 110 mmol/L (97-110); CREATININE 2.62 mg/dl (0.44-1.00); GLUCOSE 95 mg/dl (70-220); MAGNESIUM 1.8 mg/dl (1.7-2.5); PHOSPHORUS 4.9 mg/dl (2.5-4.9); POTASSIUM 4.7 mmol/L (3.5-5.1); SODIUM 142 mmol/L (135-144)
[2017-12-29] MEDS: HEPARIN 5,000 UNIT/0.5 ML VIAL SC ×3 (06:39→22:32)
[2017-12-29] MEDS: hydrALAzine 20 MG INJ IV (07:45)
[2017-12-29] MEDS: FUROSEMIDE 40 MG INJ IV (07:45)
[2017-12-29] MEDS: INSULIN ASPART [NOVOLOG] 3 ML PEN SC ×7 (07:50→20:45)
[2017-12-29] MEDS: ASPIRIN (EC) 81 MG TAB PO (09:06)
[2017-12-29] MEDS: LINAGLIPTIN 5 MG TABLET PO (09:06)
[2017-12-29] MEDS: CIPROFLOXACIN 0.3% 2.5 ML OPH RIGHT EYE ×3 (09:07→20:43)
[2017-12-29] MEDS: INSULIN GLARGINE [LANtus] 3 ML PEN SC (20:00)
[2017-12-29] MEDS: ATORVASTATIN 80 MG TAB PO (20:42)
[2017-12-30] MEDS: ACCU-CHEK XX (02:00)
[2017-12-30 05:26] LABS: ADD MAN DIFF? NO
[2017-12-30 05:34] LABS: BASOPHILS % 0.4 % (0.0-2.0); EOSINOPHILS # 0.2 10^3/ul (0.0-0.5); EOSINOPHILS % 2.3 % (0.0-7.0); HEMATOCRIT 24.2 % (37.0-47.0); HEMOGLOBIN 8.4 g/dl (12.0-16.0); LYMPHOCYTES # 2.5 10^3/ul (0.8-2.9); LYMPHOCYTES % 33.7 % (15.0-51.0); MEAN CORPUSCULAR HEMOGLOBIN 30.3 pg (29.0-33.0); MEAN CORPUSCULAR HGB CONC 34.7 g/dl (32.0-37.0); MEAN CORPUSCULAR VOLUME 87.4 fl (82.0-101.0); MEAN PLATELET VOLUME 11.3 fl (7.4-10.4); MONOCYTE # 0.6 10^3/ul (0.3-0.9); MONOCYTES % 8.5 % (0.0-11.0); NEUTROPHILS % 54.7 % (39.0-77.0); PLATELET COUNT 177 10^3/UL (140-415); RED BLOOD COUNT 2.77 10^6/ul (4.20-5.40); RED CELL DISTRIBUTION WIDTH 12.3 % (11.5-14.5)
[2017-12-30 05:34] LABS: WHITE BLOOD COUNT 7.4 10^3/ul (4.8-10.8)
[2017-12-30] MEDS: HEPARIN 5,000 UNIT/0.5 ML VIAL SC (05:53)
[2017-12-30 05:55] LABS: ANION GAP 15 (8-16); BLOOD UREA NITROGEN 40 mg/dl (7-20); CALCIUM 8.5 mg/dl (8.4-10.2); CARBON DIOXIDE 21 mmol/L (21-31); CHLORIDE 109 mmol/L (97-110); CREATININE 2.74 mg/dl (0.44-1.00); GLUCOSE 128 mg/dl (70-220); MAGNESIUM 1.8 mg/dl (1.7-2.5); PHOSPHORUS 5.4 mg/dl (2.5-4.9); POTASSIUM 4.5 mmol/L (3.5-5.1); SODIUM 140 mmol/L (135-144)
[2017-12-30] MEDS: BISACODYL (EC) 5 MG TAB PO (05:56)
[2017-12-30] MEDS: FUROSEMIDE 40 MG INJ IV (05:56)
[2017-12-30] MEDS: ASPIRIN (EC) 81 MG TAB PO (09:02)
[2017-12-30] MEDS: LINAGLIPTIN 5 MG TABLET PO (09:03)
[2017-12-30] MEDS: CIPROFLOXACIN 0.3% 2.5 ML OPH RIGHT EYE ×2 (09:04→13:02)
[2017-12-30] MEDS: INSULIN ASPART [NOVOLOG] 3 ML PEN SC ×4 (09:05→13:02)
== END 2017-12-30 15:25 | disposition home or self-care (01) | DRG 683 ==
LOC: E/R 13:19 → MS1 15:10
DX: N17.9 Acute kidney failure, unspecified (principal); N39.0 Urinary tract infection, site not specified; E87.0 Hyperosmolality and hypernatremia; E87.2 Acidosis; E11.22 Type 2 diabetes mellitus with diabetic chronic kidney disease; E11.42 Type 2 diabetes mellitus with diabetic polyneuropathy; E11.65 Type 2 diabetes mellitus with hyperglycemia; E87.70 Fluid overload, unspecified; D64.9 Anemia, unspecified; I12.9 Hypertensive chronic kidney disease with stage 1 through stage 4 chronic kidney disease, or unspecified chronic kidney disease; I25.10 Atherosclerotic heart disease of native coronary artery without angina pectoris; K29.70 Gastritis, unspecified, without bleeding; N18.3 Chronic kidney disease, stage 3 (moderate); K59.00 Constipation, unspecified; Z79.4 Long term (current) use of insulin; Z87.891 Personal history of nicotine dependence; Z95.1 Presence of aortocoronary bypass graft
CPT/HCPCS: 71045; 76775; 80048; 80053; 81001; 82962; 83036; 83690; 83735; 83880; 84100; 84155; 84300; 84484; 85025; 87086; 89190; 93005; 93306; 99285-25

== ENCOUNTER 2018-04-14 15:07 | Inpatient (IN) | payer OTHER ==
[2018-04-14 16:14] LABS: ADD MAN DIFF? NO
[2018-04-14 16:15] LABS: BASOPHILS % 0.4 % (0.0-2.0); EOSINOPHILS # 0.1 10^3/ul (0.0-0.5); EOSINOPHILS % 1.1 % (0.0-7.0); HEMATOCRIT 26.3 % (37.0-47.0); HEMOGLOBIN 8.7 g/dl (12.0-16.0); LYMPHOCYTES # 2.4 10^3/ul (0.8-2.9); LYMPHOCYTES % 24.8 % (15.0-51.0); MEAN CORPUSCULAR HEMOGLOBIN 28.7 pg (29.0-33.0); MEAN CORPUSCULAR HGB CONC 33.1 g/dl (32.0-37.0); MEAN CORPUSCULAR VOLUME 86.8 fl (82.0-101.0); MEAN PLATELET VOLUME 9.8 fl (7.4-10.4); MONOCYTE # 1.1 10^3/ul (0.3-0.9); MONOCYTES % 11.1 % (0.0-11.0); NEUTROPHIL # 6.1 10^3/ul (1.6-7.5); NEUTROPHILS % 61.5 % (39.0-77.0); PLATELET COUNT 193 10^3/UL (140-415); RED BLOOD COUNT 3.03 10^6/ul (4.20-5.40); RED CELL DISTRIBUTION WIDTH 13.7 % (11.5-14.5)
[2018-04-14 16:15] LABS: WHITE BLOOD COUNT 9.8 10^3/ul (4.8-10.8)
[2018-04-14 16:35] LABS: ANION GAP 18 (8-16); BLOOD UREA NITROGEN 42 mg/dl (7-20); CALCIUM 8.2 mg/dl (8.4-10.2); CARBON DIOXIDE 19 mmol/L (21-31); CHLORIDE 101 mmol/L (97-110); CREATININE 4.87 mg/dl (0.44-1.00); GLUCOSE 117 mg/dl (70-220); POTASSIUM 4.8 mmol/L (3.5-5.1); SODIUM 133 mmol/L (135-144)
[2018-04-14 16:44] LABS: INR 0.99; PROTIME 13.2 Sec (11.9-14.9)
[2018-04-14] MEDS: ONDANSETRON (ODT) 4 MG TAB ODT (16:57)
[2018-04-14] MEDS: HYDROCODONE/APAP (5/325) TAB PO (16:57)
[2018-04-14] MEDS ORDERED: ONDANSETRON 4 MG INJ IV (22:30)
[2018-04-14] MEDS ORDERED: GLUCOSE GEL 15 GRAM TUBE PO ×2 (23:00)
[2018-04-14] MEDS ORDERED: DEXTROSE 50% 50 ML SYRINGE IV ×2 (23:00)
[2018-04-14] MEDS ORDERED: GLUCOSE GEL 15 GRAM TUBE BUCCAL (23:00)
[2018-04-14] MEDS ORDERED: GLUCAGON 1 MG INJ IM (23:00)
[2018-04-14] MEDS: ACCU-CHEK XX (23:53)
[2018-04-15] MEDS: ACETAMINOPHEN 325 MG TAB PO (05:34)
[2018-04-15 05:46] LABS: ADD MAN DIFF? NO
[2018-04-15 05:51] LABS: BASOPHILS % 0.4 % (0.0-2.0); EOSINOPHILS # 0.1 10^3/ul (0.0-0.5); EOSINOPHILS % 1.8 % (0.0-7.0); HEMATOCRIT 25.1 % (37.0-47.0); HEMOGLOBIN 8.3 g/dl (12.0-16.0); LYMPHOCYTES # 1.8 10^3/ul (0.8-2.9); LYMPHOCYTES % 23.2 % (15.0-51.0); MEAN CORPUSCULAR HEMOGLOBIN 28.2 pg (29.0-33.0); MEAN CORPUSCULAR HGB CONC 33.1 g/dl (32.0-37.0); MEAN CORPUSCULAR VOLUME 85.4 fl (82.0-101.0); MEAN PLATELET VOLUME 10.3 fl (7.4-10.4); MONOCYTE # 0.9 10^3/ul (0.3-0.9); MONOCYTES % 11.8 % (0.0-11.0); NEUTROPHIL # 4.9 10^3/ul (1.6-7.5); NEUTROPHILS % 61.7 % (39.0-77.0); PLATELET COUNT 181 10^3/UL (140-415); RED BLOOD COUNT 2.94 10^6/ul (4.20-5.40); RED CELL DISTRIBUTION WIDTH 13.7 % (11.5-14.5)
[2018-04-15 05:51] LABS: WHITE BLOOD COUNT 7.9 10^3/ul (4.8-10.8)
[2018-04-15 06:20] LABS: HEMOGLOBIN A1C 8.9 % (0-5.9)
[2018-04-15 06:37] LABS: ALANINE AMINOTRANSFERASE 15 IU/L (13-69); ALBUMIN/GLOBULIN RATIO 0.85; ALKALINE PHOSPHATASE 79 IU/L (42-121); ANION GAP 19 (8-16); ASPARTATE AMINO TRANSFERASE 11 IU/L (15-46); BILIRUBIN,INDIRECT 0.1 mg/dl (0-1.1); BILIRUBIN,TOTAL 0.1 mg/dl (0.2-1.3); BLOOD UREA NITROGEN 45 mg/dl (7-20); CALCIUM 8.8 mg/dl (8.4-10.2); CARBON DIOXIDE 17 mmol/L (21-31); CHLORIDE 104 mmol/L (97-110); CREATININE 4.83 mg/dl (0.44-1.00); GLUCOSE 141 mg/dl (70-220); MAGNESIUM 1.9 mg/dl (1.7-2.5); PHOSPHORUS 7.7 mg/dl (2.5-4.9); POTASSIUM 4.5 mmol/L (3.5-5.1); SODIUM 135 mmol/L (135-144); TOTAL PROTEIN 6.5 g/dl (6.1-8.1)
[2018-04-15] MEDS: INSULIN ASPART [NOVOLOG] 3 ML PEN SC ×4 (07:53→20:20)
[2018-04-15] MEDS: PREGABALIN 75 MG CAP PO ×2 (08:21→20:15)
[2018-04-15] MEDS: LINAGLIPTIN 5 MG TABLET PO (08:22)
[2018-04-15] MEDS: HYDROCHLOROTHIAZIDE 25 MG TAB PO (08:22)
[2018-04-15] MEDS: PYRIDOXINE 50 MG TAB PO (08:22)
[2018-04-15] MEDS: GABAPENTIN 300 MG CAP PO ×3 (08:22→20:14)
[2018-04-15] MEDS: ASPIRIN (EC) 81 MG TAB PO (08:23)
[2018-04-15] MEDS: HEPARIN 5,000 UNIT/0.5 ML VIAL SC ×2 (08:53→20:21)
[2018-04-15] MEDS: SOD CHLORIDE 0.9% 1,000 ML IV (14:30)
[2018-04-15 15:26] LABS: HEMOGLOBIN A1C 8.6 % (0-5.9)
[2018-04-15 15:51] LABS: HDL CHOLESTEROL 42 mg/dl (35-98)
[2018-04-15] MEDS: HYDROCODONE/APAP (5/325) TAB PO (16:15)
[2018-04-15 16:17] LABS: CHOLESTEROL 374 mg/dl (100-200)
[2018-04-15 16:17] LABS: CHOL/HDL RATIO 8.9 RATIO; LDL CHOLESTEROL,CALCULATED 179 mg/dl; TRIGLYCERIDES 767 mg/dl (0-149)
[2018-04-15 17:10] LABS: ADD UMIC YES; UR ASCORBIC ACID NEGATIVE (NEGATIVE); UR BILIRUBIN (Dip) NEGATIVE (NEGATIVE); UR BLOOD (Dip) 1+ mg/dL (NEGATIVE); UR CLARITY CLEAR (CLEAR); UR COLOR YELLOW (YELLOW); UR GLUCOSE (Dip) 2+ mg/dL (NEGATIVE); UR KETONES (Dip) NEGATIVE (NEGATIVE); UR LEUKOCYTE ESTERASE (Dip) NEGATIVE Leu/ul (NEGATIVE); UR NITRITE (Dip) NEGATIVE (NEGATIVE); UR RBC 2 /HPF (0-5); UR SPECIFIC GRAVITY (Dip) 1.014 (1.003-1.030); UR TOTAL PROTEIN (Dip) 3+ mg/dl (NEGATIVE); UR UROBILINOGEN (Dip) NEGATIVE (NEGATIVE); UR WBC 5 /HPF (0-5)
[2018-04-15] MEDS: SEVELAMER CARBONATE 800 MG TABLET PO (18:11)
[2018-04-15] MEDS: FENOFIBRATE 145 MG TAB PO (18:17)
[2018-04-15] MEDS: INSULIN GLARGINE [LANtus] 3 ML PEN SC (20:19)
[2018-04-16 00:44] LABS: SODIUM,URINE RANDOM 56 mmol/L (30-90)
[2018-04-16] MEDS: ACCU-CHEK XX (01:16)
[2018-04-16 06:29] LABS: ADD MAN DIFF? NO
[2018-04-16 06:37] LABS: BASOPHILS % 0.5 % (0.0-2.0); EOSINOPHILS # 0.2 10^3/ul (0.0-0.5); HEMATOCRIT 24.1 % (37.0-47.0); HEMOGLOBIN 7.9 g/dl (12.0-16.0); LYMPHOCYTES % 24.8 % (15.0-51.0); MEAN CORPUSCULAR HEMOGLOBIN 28.4 pg (29.0-33.0); MEAN CORPUSCULAR HGB CONC 32.8 g/dl (32.0-37.0); MEAN CORPUSCULAR VOLUME 86.7 fl (82.0-101.0); MEAN PLATELET VOLUME 10.4 fl (7.4-10.4); MONOCYTE # 0.8 10^3/ul (0.3-0.9); MONOCYTES % 10.2 % (0.0-11.0); NEUTROPHIL # 4.9 10^3/ul (1.6-7.5); NEUTROPHILS % 61.4 % (39.0-77.0); PLATELET COUNT 192 10^3/UL (140-415); RED BLOOD COUNT 2.78 10^6/ul (4.20-5.40); RED CELL DISTRIBUTION WIDTH 13.6 % (11.5-14.5)
[2018-04-16 07:07] LABS: ANION GAP 13 (8-16); BLOOD UREA NITROGEN 53 mg/dl (7-20); CARBON DIOXIDE 18 mmol/L (21-31); CHLORIDE 109 mmol/L (97-110); CREATININE 5.31 mg/dl (0.44-1.00); GLUCOSE 132 mg/dl (70-220); POTASSIUM 4.7 mmol/L (3.5-5.1); SODIUM 135 mmol/L (135-144)
[2018-04-16] MEDS: GABAPENTIN 300 MG CAP PO ×3 (08:07→20:15)
[2018-04-16] MEDS: MULTIVIT/CA CARB/B CMPLX/FA TAB PO (08:07)
[2018-04-16] MEDS: SEVELAMER CARBONATE 800 MG TABLET PO ×3 (08:07→17:15)
[2018-04-16] MEDS: PYRIDOXINE 50 MG TAB PO (08:07)
[2018-04-16] MEDS: LINAGLIPTIN 5 MG TABLET PO (08:08)
[2018-04-16] MEDS: ASPIRIN (EC) 81 MG TAB PO (08:09)
[2018-04-16] MEDS: FENOFIBRATE 145 MG TAB PO (08:09)
[2018-04-16] MEDS: HEPARIN 5,000 UNIT/0.5 ML VIAL SC ×2 (08:14→20:17)
[2018-04-16] MEDS: INSULIN ASPART [NOVOLOG] 3 ML PEN SC ×4 (08:14→20:18)
[2018-04-16] MEDS: PREGABALIN 75 MG CAP PO ×2 (08:18→20:15)
[2018-04-16] MEDS: SOD CHLORIDE 0.9% 1,000 ML IV ×2 (10:30→13:52)
[2018-04-16] MEDS: EPOETIN 4000 UNITS/1 ML INJ (ESRD) SC (17:17)
[2018-04-16] MEDS: TAMSULOSIN (SR) 0.4 MG CAP PO (20:15)
[2018-04-16] MEDS: INSULIN GLARGINE [LANtus] 3 ML PEN SC (20:18)
[2018-04-16] MEDS: ACETAMINOPHEN 325 MG TAB PO (20:20)
[2018-04-17] MEDS: ACCU-CHEK XX (01:54)
[2018-04-17 05:53] LABS: ADD MAN DIFF? NO
[2018-04-17 06:04] LABS: BASOPHILS % 0.5 % (0.0-2.0); EOSINOPHILS # 0.2 10^3/ul (0.0-0.5); HEMATOCRIT 23.9 % (37.0-47.0); HEMOGLOBIN 7.6 g/dl (12.0-16.0); LYMPHOCYTES # 1.7 10^3/ul (0.8-2.9); LYMPHOCYTES % 26.9 % (15.0-51.0); MEAN CORPUSCULAR HGB CONC 31.8 g/dl (32.0-37.0); MEAN CORPUSCULAR VOLUME 88.2 fl (82.0-101.0); MEAN PLATELET VOLUME 10.5 fl (7.4-10.4); MONOCYTE # 0.7 10^3/ul (0.3-0.9); MONOCYTES % 10.4 % (0.0-11.0); NEUTROPHIL # 3.7 10^3/ul (1.6-7.5); NEUTROPHILS % 57.8 % (39.0-77.0); PLATELET COUNT 181 10^3/UL (140-415); RED BLOOD COUNT 2.71 10^6/ul (4.20-5.40); RED CELL DISTRIBUTION WIDTH 13.6 % (11.5-14.5)
[2018-04-17 06:04] LABS: WHITE BLOOD COUNT 6.4 10^3/ul (4.8-10.8)
[2018-04-17 06:37] LABS: PHOSPHORUS 5.8 mg/dl (2.5-4.9)
[2018-04-17 06:37] LABS: MAGNESIUM 1.9 mg/dl (1.7-2.5)
[2018-04-17 06:39] LABS: ANION GAP 18 (8-16); BLOOD UREA NITROGEN 53 mg/dl (7-20); CALCIUM 8.1 mg/dl (8.4-10.2); CARBON DIOXIDE 16 mmol/L (21-31); CHLORIDE 108 mmol/L (97-110); CREATININE 5.13 mg/dl (0.44-1.00); GLUCOSE 143 mg/dl (70-220); POTASSIUM 5.1 mmol/L (3.5-5.1); SODIUM 137 mmol/L (135-144)
[2018-04-17] MEDS: INSULIN ASPART [NOVOLOG] 3 ML PEN SC ×4 (08:01→21:00)
[2018-04-17] MEDS: FENOFIBRATE 145 MG TAB PO (08:12)
[2018-04-17] MEDS: MULTIVIT/CA CARB/B CMPLX/FA TAB PO (08:12)
[2018-04-17] MEDS: SEVELAMER CARBONATE 800 MG TABLET PO ×3 (08:12→17:33)
[2018-04-17] MEDS: GABAPENTIN 300 MG CAP PO ×3 (08:12→20:55)
[2018-04-17] MEDS: ASPIRIN (EC) 81 MG TAB PO (08:13)
[2018-04-17] MEDS: LINAGLIPTIN 5 MG TABLET PO (08:13)
[2018-04-17] MEDS: PYRIDOXINE 50 MG TAB PO (08:13)
[2018-04-17] MEDS: HEPARIN 5,000 UNIT/0.5 ML VIAL SC ×2 (08:14→20:59)
[2018-04-17] MEDS: PREGABALIN 75 MG CAP PO ×2 (08:19→21:00)
[2018-04-17] MEDS: NA BICARBONATE 650 MG TAB PO (15:32)
[2018-04-17] MEDS: hydrALAzine 20 MG INJ IV (15:34)
[2018-04-17] MEDS: TAMSULOSIN (SR) 0.4 MG CAP PO (20:55)
[2018-04-17] MEDS: INSULIN GLARGINE [LANtus] 3 ML PEN SC (21:06)
[2018-04-18] MEDS: NA BICARBONATE 650 MG TAB PO ×3 (00:06→20:08)
[2018-04-18] MEDS: ACCU-CHEK XX (01:18)
[2018-04-18 05:46] LABS: ADD MAN DIFF? NO
[2018-04-18 06:07] LABS: WHITE BLOOD COUNT 8.5 10^3/ul (4.8-10.8)
[2018-04-18 06:07] LABS: BASOPHILS % 0.5 % (0.0-2.0); EOSINOPHILS # 0.3 10^3/ul (0.0-0.5); HEMATOCRIT 24.8 % (37.0-47.0); HEMOGLOBIN 8.1 g/dl (12.0-16.0); LYMPHOCYTES # 2.4 10^3/ul (0.8-2.9); LYMPHOCYTES % 28.6 % (15.0-51.0); MEAN CORPUSCULAR HEMOGLOBIN 28.7 pg (29.0-33.0); MEAN CORPUSCULAR HGB CONC 32.7 g/dl (32.0-37.0); MEAN CORPUSCULAR VOLUME 87.9 fl (82.0-101.0); MEAN PLATELET VOLUME 10.2 fl (7.4-10.4); MONOCYTE # 0.6 10^3/ul (0.3-0.9); MONOCYTES % 7.3 % (0.0-11.0); NEUTROPHILS % 58.8 % (39.0-77.0); PLATELET COUNT 203 10^3/UL (140-415); RED BLOOD COUNT 2.82 10^6/ul (4.20-5.40); RED CELL DISTRIBUTION WIDTH 13.4 % (11.5-14.5)
[2018-04-18 06:48] LABS: ANION GAP 14 (8-16); BLOOD UREA NITROGEN 53 mg/dl (7-20); CALCIUM 8.4 mg/dl (8.4-10.2); CARBON DIOXIDE 16 mmol/L (21-31); CHLORIDE 112 mmol/L (97-110); CREATININE 4.75 mg/dl (0.44-1.00); GLUCOSE 149 mg/dl (70-220); POTASSIUM 5.1 mmol/L (3.5-5.1); SODIUM 137 mmol/L (135-144)
[2018-04-18] MEDS: INSULIN ASPART [NOVOLOG] 3 ML PEN SC ×4 (07:59→20:12)
[2018-04-18] MEDS: PREGABALIN 75 MG CAP PO ×2 (08:10→20:08)
[2018-04-18] MEDS: ASPIRIN (EC) 81 MG TAB PO (08:10)
[2018-04-18] MEDS: MULTIVIT/CA CARB/B CMPLX/FA TAB PO (08:10)
[2018-04-18] MEDS: LINAGLIPTIN 5 MG TABLET PO (08:10)
[2018-04-18] MEDS: PYRIDOXINE 50 MG TAB PO (08:10)
[2018-04-18] MEDS: SEVELAMER CARBONATE 800 MG TABLET PO ×3 (08:10→17:20)
[2018-04-18] MEDS: FENOFIBRATE 145 MG TAB PO (08:10)
[2018-04-18] MEDS: HEPARIN 5,000 UNIT/0.5 ML VIAL SC ×2 (08:18→20:10)
[2018-04-18] MEDS: hydrALAzine 20 MG INJ IV ×2 (12:20→15:17)
[2018-04-18] MEDS: AMLODIPINE 10 MG TAB PO (14:00)
[2018-04-18] MEDS: EPOETIN 4000 UNITS/1 ML INJ (ESRD) SC (17:21)
[2018-04-18] MEDS: TAMSULOSIN (SR) 0.4 MG CAP PO (20:08)
[2018-04-18] MEDS: GABAPENTIN 300 MG CAP PO (20:09)
[2018-04-18] MEDS: INSULIN GLARGINE [LANtus] 3 ML PEN SC (20:11)
[2018-04-19] MEDS: ACCU-CHEK XX (01:06)
[2018-04-19] MEDS: AL HYDROX/MG HYDROX/SIMETH 30 ML CUP PO (01:12)
[2018-04-19 06:37] LABS: ADD MAN DIFF? NO
[2018-04-19 06:46] LABS: BASOPHIL # 0.1 10^3/ul (0.0-0.1); BASOPHILS % 0.7 % (0.0-2.0); EOSINOPHILS # 0.2 10^3/ul (0.0-0.5); EOSINOPHILS % 2.4 % (0.0-7.0); HEMATOCRIT 23.8 % (37.0-47.0); HEMOGLOBIN 7.9 g/dl (12.0-16.0); LYMPHOCYTES # 1.8 10^3/ul (0.8-2.9); LYMPHOCYTES % 20.8 % (15.0-51.0); MEAN CORPUSCULAR HEMOGLOBIN 29.2 pg (29.0-33.0); MEAN CORPUSCULAR HGB CONC 33.2 g/dl (32.0-37.0); MEAN CORPUSCULAR VOLUME 87.8 fl (82.0-101.0); MEAN PLATELET VOLUME 10.5 fl (7.4-10.4); MONOCYTE # 0.6 10^3/ul (0.3-0.9); MONOCYTES % 7.1 % (0.0-11.0); NEUTROPHIL # 5.7 10^3/ul (1.6-7.5); NEUTROPHILS % 65.2 % (39.0-77.0); PLATELET COUNT 204 10^3/UL (140-415); RED BLOOD COUNT 2.71 10^6/ul (4.20-5.40); RED CELL DISTRIBUTION WIDTH 13.6 % (11.5-14.5)
[2018-04-19 06:46] LABS: WHITE BLOOD COUNT 8.8 10^3/ul (4.8-10.8)
[2018-04-19 07:22] LABS: ANION GAP 15 (8-16); BLOOD UREA NITROGEN 50 mg/dl (7-20); CALCIUM 8.2 mg/dl (8.4-10.2); CARBON DIOXIDE 17 mmol/L (21-31); CHLORIDE 107 mmol/L (97-110); CREATININE 4.53 mg/dl (0.44-1.00); GLUCOSE 154 mg/dl (70-220); SODIUM 133 mmol/L (135-144)
[2018-04-19 07:29] LABS: POTASSIUM 6.4 mmol/L (3.5-5.1)
[2018-04-19] MEDS: INSULIN ASPART [NOVOLOG] 3 ML PEN SC ×4 (07:55→20:37)
[2018-04-19] MEDS: SEVELAMER CARBONATE 800 MG TABLET PO ×3 (08:59→17:33)
[2018-04-19] MEDS: FENOFIBRATE 145 MG TAB PO (08:59)
[2018-04-19] MEDS: ASPIRIN (EC) 81 MG TAB PO (08:59)
[2018-04-19] MEDS: NA BICARBONATE 650 MG TAB PO ×2 (08:59→20:31)
[2018-04-19] MEDS: AMLODIPINE 10 MG TAB PO (08:59)
[2018-04-19] MEDS: PYRIDOXINE 50 MG TAB PO (08:59)
[2018-04-19] MEDS: LINAGLIPTIN 5 MG TABLET PO (09:00)
[2018-04-19] MEDS: FAMOTIDINE 20 MG TAB PO (09:00)
[2018-04-19] MEDS: MULTIVIT/CA CARB/B CMPLX/FA TAB PO (09:00)
[2018-04-19] MEDS: NA POLYST SULFON 15 GM/60 ML BTL PO ×2 (09:03→16:13)
[2018-04-19] MEDS: PREGABALIN 75 MG CAP PO ×2 (09:03→20:31)
[2018-04-19] MEDS: HEPARIN 5,000 UNIT/0.5 ML VIAL SC ×2 (09:33→20:36)
[2018-04-19 14:06] LABS: POTASSIUM 4.7 mmol/L (3.5-5.1)
[2018-04-19] MEDS: GABAPENTIN 300 MG CAP PO (20:31)
[2018-04-19] MEDS: TAMSULOSIN (SR) 0.4 MG CAP PO (20:31)
[2018-04-19] MEDS: INSULIN GLARGINE [LANtus] 3 ML PEN SC (20:39)
[2018-04-19] MEDS ORDERED: NA POLYST SULFON 15 GM/60 ML BTL PO (21:00)
[2018-04-20] MEDS: ACCU-CHEK XX (02:05)
[2018-04-20 06:11] LABS: ADD MAN DIFF? NO
[2018-04-20 06:24] LABS: BASOPHIL # 0.1 10^3/ul (0.0-0.1); BASOPHILS % 0.7 % (0.0-2.0); EOSINOPHILS # 0.3 10^3/ul (0.0-0.5); EOSINOPHILS % 3.6 % (0.0-7.0); HEMATOCRIT 24.5 % (37.0-47.0); HEMOGLOBIN 8.1 g/dl (12.0-16.0); LYMPHOCYTES # 2.1 10^3/ul (0.8-2.9); MEAN CORPUSCULAR HEMOGLOBIN 29.1 pg (29.0-33.0); MEAN CORPUSCULAR HGB CONC 33.1 g/dl (32.0-37.0); MEAN CORPUSCULAR VOLUME 88.1 fl (82.0-101.0); MEAN PLATELET VOLUME 10.4 fl (7.4-10.4); MONOCYTE # 0.6 10^3/ul (0.3-0.9); MONOCYTES % 7.9 % (0.0-11.0); NEUTROPHIL # 4.4 10^3/ul (1.6-7.5); NEUTROPHILS % 57.2 % (39.0-77.0); PLATELET COUNT 210 10^3/UL (140-415); RED BLOOD COUNT 2.78 10^6/ul (4.20-5.40); RED CELL DISTRIBUTION WIDTH 13.6 % (11.5-14.5)
[2018-04-20 06:24] LABS: WHITE BLOOD COUNT 7.6 10^3/ul (4.8-10.8)
[2018-04-20 07:05] LABS: ANION GAP 15 (8-16); BLOOD UREA NITROGEN 48 mg/dl (7-20); CALCIUM 8.5 mg/dl (8.4-10.2); CARBON DIOXIDE 21 mmol/L (21-31); CHLORIDE 106 mmol/L (97-110); CREATININE 4.88 mg/dl (0.44-1.00); GLUCOSE 163 mg/dl (70-220); POTASSIUM 4.7 mmol/L (3.5-5.1); SODIUM 137 mmol/L (135-144)
[2018-04-20] MEDS: INSULIN ASPART [NOVOLOG] 3 ML PEN SC ×4 (08:02→20:18)
[2018-04-20] MEDS: FAMOTIDINE 20 MG TAB PO (08:27)
[2018-04-20] MEDS: MULTIVIT/CA CARB/B CMPLX/FA TAB PO (08:27)
[2018-04-20] MEDS: AMLODIPINE 10 MG TAB PO (08:27)
[2018-04-20] MEDS: PYRIDOXINE 50 MG TAB PO (08:27)
[2018-04-20] MEDS: SEVELAMER CARBONATE 800 MG TABLET PO ×3 (08:27→17:23)
[2018-04-20] MEDS: FENOFIBRATE 145 MG TAB PO (08:27)
[2018-04-20] MEDS: LINAGLIPTIN 5 MG TABLET PO (08:28)
[2018-04-20] MEDS: NA BICARBONATE 650 MG TAB PO ×2 (08:28→20:08)
[2018-04-20] MEDS: ASPIRIN (EC) 81 MG TAB PO (08:28)
[2018-04-20] MEDS: PREGABALIN 75 MG CAP PO ×2 (08:32→20:09)
[2018-04-20] MEDS: HEPARIN 5,000 UNIT/0.5 ML VIAL SC ×2 (08:38→20:19)
[2018-04-20] MEDS: BETHANECHOL 10 MG TAB PO ×2 (12:20→21:32)
[2018-04-20] MEDS: TAMSULOSIN (SR) 0.4 MG CAP PO (20:08)
[2018-04-20] MEDS: GABAPENTIN 300 MG CAP PO (20:09)
[2018-04-20] MEDS: INSULIN GLARGINE [LANtus] 3 ML PEN SC (20:19)
[2018-04-21] MEDS: ACCU-CHEK XX (02:19)
[2018-04-21 06:35] LABS: ANION GAP 15 (8-16); BLOOD UREA NITROGEN 52 mg/dl (7-20); CALCIUM 7.9 mg/dl (8.4-10.2); CARBON DIOXIDE 18 mmol/L (21-31); CHLORIDE 106 mmol/L (97-110); CREATININE 4.65 mg/dl (0.44-1.00); GLUCOSE 134 mg/dl (70-220); POTASSIUM 4.6 mmol/L (3.5-5.1); SODIUM 134 mmol/L (135-144)
[2018-04-21] MEDS: INSULIN ASPART [NOVOLOG] 3 ML PEN SC ×4 (07:48→21:31)
[2018-04-21] MEDS: MULTIVIT/CA CARB/B CMPLX/FA TAB PO (08:54)
[2018-04-21] MEDS: FAMOTIDINE 20 MG TAB PO (08:54)
[2018-04-21] MEDS: LINAGLIPTIN 5 MG TABLET PO (08:54)
[2018-04-21] MEDS: PYRIDOXINE 50 MG TAB PO (08:54)
[2018-04-21] MEDS: FENOFIBRATE 145 MG TAB PO (08:54)
[2018-04-21] MEDS: NA BICARBONATE 650 MG TAB PO ×2 (08:54→21:23)
[2018-04-21] MEDS: ASPIRIN (EC) 81 MG TAB PO (08:55)
[2018-04-21] MEDS: AMLODIPINE 10 MG TAB PO (08:55)
[2018-04-21] MEDS: SEVELAMER CARBONATE 800 MG TABLET PO ×3 (08:56→17:17)
[2018-04-21] MEDS: HEPARIN 5,000 UNIT/0.5 ML VIAL SC ×2 (09:00→21:32)
[2018-04-21] MEDS: BETHANECHOL 25 MG TAB PO ×3 (09:00→21:23)
[2018-04-21] MEDS: PREGABALIN 75 MG CAP PO ×2 (09:02→21:22)
[2018-04-21] MEDS ORDERED: HEPARIN 1000 UNITS/ML 10 ML INJ (11:33)
[2018-04-21] MEDS ORDERED: LIDOCAINE 1% (MDV) 10 ML INJ (11:33)
[2018-04-21] MEDS ORDERED: IODIXANOL LOCM 50 ML BTL (11:33)
[2018-04-21] MEDS: EPOETIN 4000 UNITS/1 ML INJ (ESRD) SC (17:17)
[2018-04-21] MEDS: GABAPENTIN 300 MG CAP PO (21:22)
[2018-04-21] MEDS: TAMSULOSIN (SR) 0.4 MG CAP PO (21:23)
[2018-04-21] MEDS: INSULIN GLARGINE [LANtus] 3 ML PEN SC (21:32)
[2018-04-22] MEDS: ACCU-CHEK XX (02:00)
[2018-04-22 08:02] LABS: ANION GAP 13 (8-16); BLOOD UREA NITROGEN 55 mg/dl (7-20); CALCIUM 8.3 mg/dl (8.4-10.2); CARBON DIOXIDE 21 mmol/L (21-31); CHLORIDE 107 mmol/L (97-110); CREATININE 5.15 mg/dl (0.44-1.00); GLUCOSE 121 mg/dl (70-220); POTASSIUM 4.7 mmol/L (3.5-5.1); SODIUM 136 mmol/L (135-144)
[2018-04-22] MEDS: INSULIN ASPART [NOVOLOG] 3 ML PEN SC ×5 (08:15→21:02)
[2018-04-22 08:34] LABS: HEPATITIS B SURFACE ANTIGEN NEGATIVE (NEGATIVE)
[2018-04-22] MEDS: AMLODIPINE 10 MG TAB PO (09:00)
[2018-04-22] MEDS: FENOFIBRATE 145 MG TAB PO (09:09)
[2018-04-22] MEDS: SEVELAMER CARBONATE 800 MG TABLET PO ×3 (09:09→17:14)
[2018-04-22] MEDS: FAMOTIDINE 20 MG TAB PO (09:09)
[2018-04-22] MEDS: NA BICARBONATE 650 MG TAB PO ×2 (09:09→20:41)
[2018-04-22] MEDS: ASPIRIN (EC) 81 MG TAB PO (09:09)
[2018-04-22] MEDS: MULTIVIT/CA CARB/B CMPLX/FA TAB PO (09:09)
[2018-04-22] MEDS: PYRIDOXINE 50 MG TAB PO (09:09)
[2018-04-22] MEDS: BETHANECHOL 25 MG TAB PO ×3 (09:09→20:41)
[2018-04-22] MEDS: LINAGLIPTIN 5 MG TABLET PO (09:10)
[2018-04-22] MEDS: PREGABALIN 75 MG CAP PO ×2 (09:21→20:41)
[2018-04-22] MEDS: HEPARIN 5,000 UNIT/0.5 ML VIAL SC ×2 (10:50→20:46)
[2018-04-22] MEDS: MANNITOL 25% 50 ML INJ IV* (12:01)
[2018-04-22 17:36] LABS: HAAIG REFLEX REFLEX FILED
[2018-04-22 18:16] LABS: HEPATITIS B SURFACE ANTIGEN NEGATIVE (NEGATIVE)
[2018-04-22 18:34] LABS: HEPATITIS B CORE ANTIBODY NEGATIVE (NEGATIVE); HEPATITIS C VIRAL ANTIBODY NEGATIVE (NEGATIVE)
[2018-04-22] MEDS: TAMSULOSIN (SR) 0.4 MG CAP PO (20:41)
[2018-04-22] MEDS: GABAPENTIN 300 MG CAP PO (20:42)
[2018-04-22] MEDS: INSULIN GLARGINE [LANtus] 3 ML PEN SC (20:46)
[2018-04-23] MEDS: ACCU-CHEK XX (02:00)
[2018-04-23] MEDS: INSULIN ASPART [NOVOLOG] 3 ML PEN SC ×4 (08:14→20:50)
[2018-04-23] MEDS: AMLODIPINE 10 MG TAB PO (08:16)
[2018-04-23] MEDS: MULTIVIT/CA CARB/B CMPLX/FA TAB PO (08:28)
[2018-04-23] MEDS: SEVELAMER CARBONATE 800 MG TABLET PO ×3 (08:28→19:28)
[2018-04-23] MEDS: PYRIDOXINE 50 MG TAB PO (08:29)
[2018-04-23] MEDS: LINAGLIPTIN 5 MG TABLET PO (08:29)
[2018-04-23] MEDS: NA BICARBONATE 650 MG TAB PO ×2 (08:29→21:05)
[2018-04-23] MEDS: ASPIRIN (EC) 81 MG TAB PO (08:29)
[2018-04-23] MEDS: FENOFIBRATE 145 MG TAB PO (08:29)
[2018-04-23] MEDS: FAMOTIDINE 20 MG TAB PO (08:29)
[2018-04-23] MEDS: BETHANECHOL 25 MG TAB PO ×3 (08:29→20:42)
[2018-04-23] MEDS: HEPARIN 5,000 UNIT/0.5 ML VIAL SC ×2 (08:33→20:52)
[2018-04-23] MEDS: PREGABALIN 75 MG CAP PO ×2 (08:37→20:42)
[2018-04-23 12:15] LABS: HEMOGLOBIN 8.5 g/dl (12.0-16.0)
[2018-04-23] MEDS: MANNITOL 25% 50 ML INJ IV* (16:56)
[2018-04-23] MEDS: HEPARIN 1000 UNITS/ML 10 ML INJ CATHETER (19:25)
[2018-04-23] MEDS: EPOETIN 4000 UNITS/1 ML INJ (ESRD) SC (20:41)
[2018-04-23] MEDS: GABAPENTIN 300 MG CAP PO (20:42)
[2018-04-23] MEDS: TAMSULOSIN (SR) 0.4 MG CAP PO (20:42)
[2018-04-23] MEDS: INSULIN GLARGINE [LANtus] 3 ML PEN SC (20:51)
[2018-04-24] MEDS: ACCU-CHEK XX (01:37)
[2018-04-24 06:56] LABS: ANION GAP 11 (8-16); BLOOD UREA NITROGEN 31 mg/dl (7-20); CALCIUM 8.2 mg/dl (8.4-10.2); CARBON DIOXIDE 28 mmol/L (21-31); CHLORIDE 104 mmol/L (97-110); CREATININE 3.75 mg/dl (0.44-1.00); GLUCOSE 138 mg/dl (70-220); POTASSIUM 4.7 mmol/L (3.5-5.1); SODIUM 138 mmol/L (135-144)
[2018-04-24] MEDS: INSULIN ASPART [NOVOLOG] 3 ML PEN SC ×4 (08:15→20:46)
[2018-04-24] MEDS: SEVELAMER CARBONATE 800 MG TABLET PO ×3 (08:38→17:33)
[2018-04-24] MEDS: PREGABALIN 75 MG CAP PO ×2 (08:39→20:55)
[2018-04-24] MEDS: HEPARIN 5,000 UNIT/0.5 ML VIAL SC ×2 (08:39→20:47)
[2018-04-24] MEDS: ASPIRIN (EC) 81 MG TAB PO (08:39)
[2018-04-24] MEDS: FENOFIBRATE 145 MG TAB PO (08:40)
[2018-04-24] MEDS: MULTIVIT/CA CARB/B CMPLX/FA TAB PO (08:40)
[2018-04-24] MEDS: FAMOTIDINE 20 MG TAB PO (08:40)
[2018-04-24] MEDS: BETHANECHOL 25 MG TAB PO ×3 (08:41→20:48)
[2018-04-24] MEDS: NA BICARBONATE 650 MG TAB PO ×2 (08:41→20:48)
[2018-04-24] MEDS: LINAGLIPTIN 5 MG TABLET PO (08:41)
[2018-04-24] MEDS: PYRIDOXINE 50 MG TAB PO (08:41)
[2018-04-24] MEDS: AMLODIPINE 10 MG TAB PO (08:50)
[2018-04-24] MEDS: HEPARIN 1000 UNITS/ML 10 ML INJ CATHETER (14:07)
[2018-04-24] MEDS: INSULIN GLARGINE [LANtus] 3 ML PEN SC (20:46)
[2018-04-24] MEDS: GABAPENTIN 300 MG CAP PO (20:48)
[2018-04-24] MEDS: TAMSULOSIN (SR) 0.4 MG CAP PO (20:48)
[2018-04-25] MEDS: ACCU-CHEK XX (02:00)
[2018-04-25] MEDS: INSULIN ASPART [NOVOLOG] 3 ML PEN SC ×4 (07:47→20:11)
[2018-04-25] MEDS: SEVELAMER CARBONATE 800 MG TABLET PO ×3 (07:48→17:33)
[2018-04-25] MEDS: MULTIVIT/CA CARB/B CMPLX/FA TAB PO (09:33)
[2018-04-25] MEDS: PREGABALIN 75 MG CAP PO ×2 (09:34→20:06)
[2018-04-25] MEDS: PYRIDOXINE 50 MG TAB PO (09:34)
[2018-04-25] MEDS: NA BICARBONATE 650 MG TAB PO ×2 (09:34→20:12)
[2018-04-25] MEDS: ASPIRIN (EC) 81 MG TAB PO (09:34)
[2018-04-25] MEDS: FENOFIBRATE 145 MG TAB PO (09:34)
[2018-04-25] MEDS: LINAGLIPTIN 5 MG TABLET PO (09:34)
[2018-04-25] MEDS: BETHANECHOL 25 MG TAB PO ×3 (09:34→20:06)
[2018-04-25] MEDS: FAMOTIDINE 20 MG TAB PO (09:34)
[2018-04-25] MEDS: AMLODIPINE 10 MG TAB PO (09:38)
[2018-04-25] MEDS: HEPARIN 5,000 UNIT/0.5 ML VIAL SC ×2 (09:41→20:12)
[2018-04-25] MEDS: EPOETIN 4000 UNITS/1 ML INJ (ESRD) SC (17:35)
[2018-04-25] MEDS: INSULIN GLARGINE [LANtus] 3 ML PEN SC (20:11)
[2018-04-25] MEDS: GABAPENTIN 300 MG CAP PO (20:15)
[2018-04-25] MEDS: TAMSULOSIN (SR) 0.4 MG CAP PO (20:15)
[2018-04-26] MEDS: ACCU-CHEK XX (02:00)
[2018-04-26] MEDS: INSULIN ASPART [NOVOLOG] 3 ML PEN SC ×3 (07:40→22:02)
[2018-04-26] MEDS: SEVELAMER CARBONATE 800 MG TABLET PO ×2 (07:53→12:32)
[2018-04-26] MEDS: PREGABALIN 75 MG CAP PO ×2 (07:54→20:49)
[2018-04-26] MEDS: FENOFIBRATE 145 MG TAB PO (07:54)
[2018-04-26] MEDS: ASPIRIN (EC) 81 MG TAB PO (07:54)
[2018-04-26] MEDS: LINAGLIPTIN 5 MG TABLET PO (07:55)
[2018-04-26] MEDS: PYRIDOXINE 50 MG TAB PO (07:55)
[2018-04-26] MEDS: BETHANECHOL 25 MG TAB PO ×3 (07:55→20:49)
[2018-04-26] MEDS: MULTIVIT/CA CARB/B CMPLX/FA TAB PO (07:56)
[2018-04-26] MEDS: FAMOTIDINE 20 MG TAB PO (07:56)
[2018-04-26] MEDS: NA BICARBONATE 650 MG TAB PO ×2 (07:56→20:50)
[2018-04-26] MEDS: AMLODIPINE 10 MG TAB PO (07:57)
[2018-04-26] MEDS: hydrALAzine 20 MG INJ IV (07:57)
[2018-04-26] MEDS: HEPARIN 5,000 UNIT/0.5 ML VIAL SC ×2 (08:00→20:51)
[2018-04-26] MEDS: POLYETHYLENE GLYCOL 17 GM PACKET GTB (14:20)
[2018-04-26] MEDS: HEPARIN 1000 UNITS/ML 10 ML INJ CATHETER (20:37)
[2018-04-26] MEDS: TAMSULOSIN (SR) 0.4 MG CAP PO (20:50)
[2018-04-26] MEDS: GABAPENTIN 300 MG CAP PO (20:50)
[2018-04-26] MEDS: INSULIN GLARGINE [LANTus] (100 UNITS/ML) SYG SC (22:02)
[2018-04-27] MEDS: ACCU-CHEK XX (02:00)
[2018-04-27] MEDS: INSULIN ASPART [NOVOLOG] 3 ML PEN SC ×4 (07:51→20:45)
[2018-04-27] MEDS: SEVELAMER CARBONATE 800 MG TABLET PO ×4 (08:15→18:07)
[2018-04-27] MEDS: FENOFIBRATE 145 MG TAB PO (08:24)
[2018-04-27] MEDS: FAMOTIDINE 20 MG TAB PO (08:24)
[2018-04-27] MEDS: AMLODIPINE 10 MG TAB PO (08:24)
[2018-04-27] MEDS: PREGABALIN 75 MG CAP PO ×2 (08:24→20:43)
[2018-04-27] MEDS: ASPIRIN (EC) 81 MG TAB PO (08:24)
[2018-04-27] MEDS: PYRIDOXINE 50 MG TAB PO (08:24)
[2018-04-27] MEDS: BETHANECHOL 25 MG TAB PO ×3 (08:24→20:42)
[2018-04-27] MEDS: MULTIVIT/CA CARB/B CMPLX/FA TAB PO (08:24)
[2018-04-27] MEDS: NA BICARBONATE 650 MG TAB PO ×2 (08:24→20:42)
[2018-04-27] MEDS: LINAGLIPTIN 5 MG TABLET PO (08:25)
[2018-04-27] MEDS: HEPARIN 5,000 UNIT/0.5 ML VIAL SC ×2 (08:26→20:45)
[2018-04-27] MEDS: GABAPENTIN 300 MG CAP PO (20:42)
[2018-04-27] MEDS: TAMSULOSIN (SR) 0.4 MG CAP PO (20:42)
[2018-04-27] MEDS: INSULIN GLARGINE [LANTus] (100 UNITS/ML) SYG SC (20:44)
[2018-04-28] MEDS: ACCU-CHEK XX (02:00)
[2018-04-28] MEDS: SEVELAMER CARBONATE 800 MG TABLET PO ×3 (08:07→17:38)
[2018-04-28] MEDS: INSULIN ASPART [NOVOLOG] 3 ML PEN SC ×4 (08:07→20:21)
[2018-04-28] MEDS: FAMOTIDINE 20 MG TAB PO (08:25)
[2018-04-28] MEDS: BETHANECHOL 25 MG TAB PO ×3 (08:25→20:17)
[2018-04-28] MEDS: MULTIVIT/CA CARB/B CMPLX/FA TAB PO (08:26)
[2018-04-28] MEDS: LINAGLIPTIN 5 MG TABLET PO (08:26)
[2018-04-28] MEDS: PYRIDOXINE 50 MG TAB PO (08:26)
[2018-04-28] MEDS: FENOFIBRATE 145 MG TAB PO (08:26)
[2018-04-28] MEDS: ASPIRIN (EC) 81 MG TAB PO (08:26)
[2018-04-28] MEDS: AMLODIPINE 10 MG TAB PO (08:26)
[2018-04-28] MEDS: NA BICARBONATE 650 MG TAB PO (08:26)
[2018-04-28] MEDS: PREGABALIN 75 MG CAP PO ×2 (08:26→20:17)
[2018-04-28] MEDS: HEPARIN 5,000 UNIT/0.5 ML VIAL SC ×2 (08:31→20:22)
[2018-04-28 12:32] LABS: ANION GAP 15 (8-16); BLOOD UREA NITROGEN 31 mg/dl (7-20); CALCIUM 8.3 mg/dl (8.4-10.2); CARBON DIOXIDE 24 mmol/L (21-31); CHLORIDE 103 mmol/L (97-110); CREATININE 4.52 mg/dl (0.44-1.00); GLUCOSE 86 mg/dl (70-220); POTASSIUM 4.4 mmol/L (3.5-5.1); SODIUM 138 mmol/L (135-144)
[2018-04-28] MEDS: EPOETIN 4000 UNITS/1 ML INJ (ESRD) SC (17:42)
[2018-04-28] MEDS: TAMSULOSIN (SR) 0.4 MG CAP PO (20:17)
[2018-04-28] MEDS: GABAPENTIN 300 MG CAP PO (20:17)
[2018-04-28] MEDS: INSULIN GLARGINE [LANTus] (100 UNITS/ML) SYG SC (20:21)
[2018-04-29] MEDS: ACCU-CHEK XX (02:00)
[2018-04-29] MEDS: PYRIDOXINE 50 MG TAB PO (08:20)
[2018-04-29] MEDS: ASPIRIN (EC) 81 MG TAB PO (08:20)
[2018-04-29] MEDS: BETHANECHOL 25 MG TAB PO ×3 (08:20→20:36)
[2018-04-29] MEDS: LINAGLIPTIN 5 MG TABLET PO (08:21)
[2018-04-29] MEDS: FAMOTIDINE 20 MG TAB PO (08:21)
[2018-04-29] MEDS: FENOFIBRATE 145 MG TAB PO (08:21)
[2018-04-29] MEDS: SEVELAMER CARBONATE 800 MG TABLET PO ×3 (08:21→17:27)
[2018-04-29] MEDS: MULTIVIT/CA CARB/B CMPLX/FA TAB PO (08:21)
[2018-04-29] MEDS: AMLODIPINE 10 MG TAB PO (08:22)
[2018-04-29] MEDS: INSULIN ASPART [NOVOLOG] 3 ML PEN SC ×4 (08:24→20:41)
[2018-04-29] MEDS: HEPARIN 5,000 UNIT/0.5 ML VIAL SC ×2 (08:24→20:37)
[2018-04-29] MEDS: PREGABALIN 75 MG CAP PO ×2 (09:50→20:36)
[2018-04-29] MEDS ORDERED: SOD CHLORIDE 0.9% 250 ML IV* (10:02)
[2018-04-29] MEDS: HEPARIN 1000 UNITS/ML 10 ML INJ CATHETER (14:07)
[2018-04-29 15:14] LABS: HEMATOCRIT 23.9 % (37.0-47.0); HEMOGLOBIN 7.6 g/dl (12.0-16.0)
[2018-04-29] MEDS: GABAPENTIN 300 MG CAP PO (20:36)
[2018-04-29] MEDS: TAMSULOSIN (SR) 0.4 MG CAP PO (20:36)
[2018-04-29] MEDS: INSULIN GLARGINE [LANTus] (100 UNITS/ML) SYG SC (20:38)
[2018-04-30] MEDS: ACCU-CHEK XX (02:00)
[2018-04-30] MEDS: INSULIN ASPART [NOVOLOG] 3 ML PEN SC ×4 (07:50→20:42)
[2018-04-30] MEDS: PREGABALIN 75 MG CAP PO ×2 (08:31→20:18)
[2018-04-30] MEDS: PYRIDOXINE 50 MG TAB PO (08:32)
[2018-04-30] MEDS: SEVELAMER CARBONATE 800 MG TABLET PO ×3 (08:32→17:01)
[2018-04-30] MEDS: MULTIVIT/CA CARB/B CMPLX/FA TAB PO (08:32)
[2018-04-30] MEDS: BETHANECHOL 25 MG TAB PO ×3 (08:33→20:18)
[2018-04-30] MEDS: FAMOTIDINE 20 MG TAB PO (08:33)
[2018-04-30] MEDS: ASPIRIN (EC) 81 MG TAB PO (08:33)
[2018-04-30] MEDS: LINAGLIPTIN 5 MG TABLET PO (08:33)
[2018-04-30] MEDS: FENOFIBRATE 145 MG TAB PO (08:33)
[2018-04-30] MEDS: HEPARIN 5,000 UNIT/0.5 ML VIAL SC ×2 (08:35→20:32)
[2018-04-30] MEDS: AMLODIPINE 10 MG TAB PO (08:35)
[2018-04-30] MEDS ORDERED: SOD CHLORIDE 0.9% 1,000 ML IV (13:08)
[2018-04-30] MEDS ORDERED: ALBUMIN HUMAN 25% 100 ML IV (13:30)
[2018-04-30 17:25] LABS: HEPATITIS B SURFACE ANTIBODY NEGATIVE (NEGATIVE)
[2018-04-30] MEDS: TAMSULOSIN (SR) 0.4 MG CAP PO (20:18)
[2018-04-30] MEDS: GABAPENTIN 300 MG CAP PO (20:18)
[2018-04-30] MEDS: EPOETIN 10000 UNITS/1 ML INJ (ESRD) SC (20:20)
[2018-04-30] MEDS: INSULIN GLARGINE [LANTus] (100 UNITS/ML) SYG SC (20:41)
[2018-05-01] MEDS: ACCU-CHEK XX (02:00)
[2018-05-01] MEDS: INSULIN ASPART [NOVOLOG] 3 ML PEN SC ×4 (08:15→20:19)
[2018-05-01] MEDS: HEPARIN 1000 UNITS/ML 10 ML INJ CATHETER (10:36)
[2018-05-01] MEDS: SEVELAMER CARBONATE 800 MG TABLET PO ×3 (10:40→17:24)
[2018-05-01] MEDS: PREGABALIN 75 MG CAP PO ×2 (10:40→20:08)
[2018-05-01] MEDS: BETHANECHOL 25 MG TAB PO ×3 (10:40→20:08)
[2018-05-01] MEDS: LINAGLIPTIN 5 MG TABLET PO (10:40)
[2018-05-01] MEDS: MULTIVIT/CA CARB/B CMPLX/FA TAB PO (10:41)
[2018-05-01] MEDS: FAMOTIDINE 20 MG TAB PO (10:41)
[2018-05-01] MEDS: ASPIRIN (EC) 81 MG TAB PO (10:41)
[2018-05-01] MEDS: FENOFIBRATE 145 MG TAB PO (10:41)
[2018-05-01] MEDS: AMLODIPINE 10 MG TAB PO (10:41)
[2018-05-01] MEDS: PYRIDOXINE 50 MG TAB PO (10:41)
[2018-05-01] MEDS: HEPARIN 5,000 UNIT/0.5 ML VIAL SC ×2 (10:42→20:18)
[2018-05-01 10:52] LABS: HEMATOCRIT 22.1 % (37.0-47.0); HEMOGLOBIN 7.1 g/dl (12.0-16.0)
[2018-05-01] MEDS: INSULIN GLARGINE [LANTus] (100 UNITS/ML) SYG SC (20:00)
[2018-05-01] MEDS: TAMSULOSIN (SR) 0.4 MG CAP PO (20:08)
[2018-05-01] MEDS: GABAPENTIN 300 MG CAP PO (20:08)
[2018-05-02] MEDS: ACCU-CHEK XX ×2 (02:00→21:22)
[2018-05-02] MEDS ORDERED: THROMBIN 5000 UNIT VIAL (06:25)
[2018-05-02] MEDS ORDERED: HEPARIN 1000 UNITS/ML 10 ML INJ (06:25)
[2018-05-02] MEDS ORDERED: GELATIN SIZE 100 SPONGE (06:25)
[2018-05-02] MEDS ORDERED: LIDOCAINE 1% (MPF) 30 ML INJ (06:25)
[2018-05-02 06:27] LABS: IRON 38 ug/dl (35-150)
[2018-05-02 06:36] LABS: % IRON SATURATION 12 % SAT (22-52); TOTAL IRON BINDING CAPACITY 321 ug/dl (241-421)
[2018-05-02] MEDS: HEPARIN 1000 UNITS/ML 10 ML INJ IRR (07:29)
[2018-05-02] MEDS: LIDOCAINE 1% (MPF) 30 ML INJ INJ (07:31)
[2018-05-02] MEDS: INSULIN ASPART [NOVOLOG] 3 ML PEN SC ×4 (08:15→21:00)
[2018-05-02] MEDS: MULTIVIT/CA CARB/B CMPLX/FA TAB PO (08:39)
[2018-05-02] MEDS: BETHANECHOL 25 MG TAB PO ×3 (08:39→21:05)
[2018-05-02] MEDS: FAMOTIDINE 20 MG TAB PO (08:39)
[2018-05-02] MEDS: AMLODIPINE 10 MG TAB PO (08:39)
[2018-05-02] MEDS: SEVELAMER CARBONATE 800 MG TABLET PO ×3 (08:39→18:30)
[2018-05-02] MEDS: PYRIDOXINE 50 MG TAB PO (08:40)
[2018-05-02] MEDS: LINAGLIPTIN 5 MG TABLET PO (08:40)
[2018-05-02] MEDS: ASPIRIN (EC) 81 MG TAB PO (08:40)
[2018-05-02] MEDS: FENOFIBRATE 145 MG TAB PO (08:40)
[2018-05-02] MEDS: PREGABALIN 75 MG CAP PO ×2 (08:44→21:06)
[2018-05-02] MEDS: HEPARIN 5,000 UNIT/0.5 ML VIAL SC ×2 (08:46→21:17)
[2018-05-02 11:36] LABS: HEMATOCRIT 23.8 % (37.0-47.0); HEMOGLOBIN 7.4 g/dl (12.0-16.0)
[2018-05-02 15:09] LABS: IMMEDIATE SPIN CROSSMATCH 1 1
[2018-05-02] MEDS ORDERED: HEPARIN 1000 UNITS/ML 10 ML INJ CATHETER (16:30)
[2018-05-02] MEDS ORDERED: SODIUM CHLORIDE 0.9% 1L BAG IV (16:30)
[2018-05-02] MEDS ORDERED: ALBUMIN HUMAN 25% 50 ML IV (16:30)
[2018-05-02] MEDS: EPOETIN 10000 UNITS/1 ML INJ (ESRD) SC (18:31)
[2018-05-02] MEDS: TAMSULOSIN (SR) 0.4 MG CAP PO (21:04)
[2018-05-02] MEDS: GABAPENTIN 300 MG CAP PO (21:05)
[2018-05-02] MEDS: INSULIN GLARGINE [LANTus] (100 UNITS/ML) SYG SC (21:17)
[2018-05-03 05:57] LABS: ADD MAN DIFF? NO
[2018-05-03 06:07] LABS: BASOPHILS % 0.4 % (0.0-2.0); EOSINOPHILS # 0.3 10^3/ul (0.0-0.5); EOSINOPHILS % 3.6 % (0.0-7.0); HEMATOCRIT 25.9 % (37.0-47.0); LYMPHOCYTES # 1.5 10^3/ul (0.8-2.9); LYMPHOCYTES % 21.7 % (15.0-51.0); MEAN CORPUSCULAR HEMOGLOBIN 28.3 pg (29.0-33.0); MEAN CORPUSCULAR HGB CONC 30.9 g/dl (32.0-37.0); MEAN CORPUSCULAR VOLUME 91.5 fl (82.0-101.0); MEAN PLATELET VOLUME 11.4 fl (7.4-10.4); MONOCYTE # 0.7 10^3/ul (0.3-0.9); MONOCYTES % 9.9 % (0.0-11.0); NEUTROPHIL # 4.4 10^3/ul (1.6-7.5); PLATELET COUNT 224 10^3/UL (140-415); RED BLOOD COUNT 2.83 10^6/ul (4.20-5.40); RED CELL DISTRIBUTION WIDTH 14.3 % (11.5-14.5)
[2018-05-03 06:38] LABS: ANION GAP 14 (8-16); BLOOD UREA NITROGEN 36 mg/dl (7-20); CALCIUM 8.2 mg/dl (8.4-10.2); CARBON DIOXIDE 21 mmol/L (21-31); CHLORIDE 107 mmol/L (97-110); CREATININE 4.75 mg/dl (0.44-1.00); GLUCOSE 107 mg/dl (70-220); SODIUM 137 mmol/L (135-144)
[2018-05-03] MEDS: morphine 2 MG INJ IV (07:03)
[2018-05-03] MEDS: NITROGLYCERIN (SL) 0.4 MG TAB SL (07:10)
[2018-05-03 07:34] LABS: POTASSIUM 5.3 mmol/L (3.5-5.1)
[2018-05-03] MEDS: SEVELAMER CARBONATE 800 MG TABLET PO ×3 (08:15→17:37)
[2018-05-03] MEDS: INSULIN ASPART [NOVOLOG] 3 ML PEN SC ×5 (08:15→20:53)
[2018-05-03 08:23] LABS: TROPONIN-I 0.015 ng/ml (0.000-0.120)
[2018-05-03] MEDS: AMLODIPINE 10 MG TAB PO (08:43)
[2018-05-03] MEDS: BETHANECHOL 25 MG TAB PO ×3 (09:57→20:48)
[2018-05-03] MEDS: ASPIRIN (EC) 81 MG TAB PO (09:57)
[2018-05-03] MEDS: MULTIVIT/CA CARB/B CMPLX/FA TAB PO (09:57)
[2018-05-03] MEDS: LINAGLIPTIN 5 MG TABLET PO (09:58)
[2018-05-03] MEDS: PYRIDOXINE 50 MG TAB PO (09:58)
[2018-05-03] MEDS: FAMOTIDINE 20 MG TAB PO (09:58)
[2018-05-03] MEDS: FENOFIBRATE 145 MG TAB PO (09:58)
[2018-05-03] MEDS: PREGABALIN 75 MG CAP PO ×2 (10:05→20:48)
[2018-05-03] MEDS: HEPARIN 5,000 UNIT/0.5 ML VIAL SC ×2 (10:05→20:54)
[2018-05-03] MEDS: HEPARIN 1000 UNITS/ML 10 ML INJ CATHETER (11:50)
[2018-05-03] MEDS ORDERED: NA POLYST SULFON 15 GM/60 ML BTL PO (13:00)
[2018-05-03] MEDS ORDERED: ALBUTEROL/IPRATROPIUM (NEB) 3 ML AMP HHN (13:30)
[2018-05-03] MEDS: GABAPENTIN 300 MG CAP PO (20:49)
[2018-05-03] MEDS: TAMSULOSIN (SR) 0.4 MG CAP PO (20:49)
[2018-05-03] MEDS: INSULIN GLARGINE [LANTus] (100 UNITS/ML) SYG SC (20:53)
[2018-05-04] MEDS: ACCU-CHEK XX (02:00)
[2018-05-04 05:37] LABS: ADD MAN DIFF? NO
[2018-05-04 05:53] LABS: WHITE BLOOD COUNT 7.2 10^3/ul (4.8-10.8)
[2018-05-04 05:53] LABS: BASOPHIL # 0.1 10^3/ul (0.0-0.1); BASOPHILS % 0.7 % (0.0-2.0); EOSINOPHILS # 0.2 10^3/ul (0.0-0.5); EOSINOPHILS % 2.9 % (0.0-7.0); HEMATOCRIT 26.9 % (37.0-47.0); HEMOGLOBIN 8.4 g/dl (12.0-16.0); LYMPHOCYTES # 2.1 10^3/ul (0.8-2.9); LYMPHOCYTES % 29.7 % (15.0-51.0); MEAN CORPUSCULAR HEMOGLOBIN 28.7 pg (29.0-33.0); MEAN CORPUSCULAR HGB CONC 31.2 g/dl (32.0-37.0); MEAN CORPUSCULAR VOLUME 91.8 fl (82.0-101.0); MEAN PLATELET VOLUME 11.1 fl (7.4-10.4); MONOCYTE # 0.8 10^3/ul (0.3-0.9); MONOCYTES % 11.7 % (0.0-11.0); NEUTROPHIL # 3.9 10^3/ul (1.6-7.5); NEUTROPHILS % 54.2 % (39.0-77.0); PLATELET COUNT 259 10^3/UL (140-415); RED BLOOD COUNT 2.93 10^6/ul (4.20-5.40); RED CELL DISTRIBUTION WIDTH 14.4 % (11.5-14.5)
[2018-05-04 06:27] LABS: ANION GAP 10 (8-16); BLOOD UREA NITROGEN 28 mg/dl (7-20); CALCIUM 8.1 mg/dl (8.4-10.2); CARBON DIOXIDE 26 mmol/L (21-31); CHLORIDE 108 mmol/L (97-110); CREATININE 3.86 mg/dl (0.44-1.00); GLUCOSE 112 mg/dl (70-220); POTASSIUM 4.6 mmol/L (3.5-5.1); SODIUM 139 mmol/L (135-144)
[2018-05-04] MEDS: SEVELAMER CARBONATE 800 MG TABLET PO ×3 (08:08→17:32)
[2018-05-04] MEDS: LINAGLIPTIN 5 MG TABLET PO (08:08)
[2018-05-04] MEDS: ASPIRIN (EC) 81 MG TAB PO (08:08)
[2018-05-04] MEDS: MULTIVIT/CA CARB/B CMPLX/FA TAB PO (08:08)
[2018-05-04] MEDS: BETHANECHOL 25 MG TAB PO ×3 (08:08→20:18)
[2018-05-04] MEDS: FENOFIBRATE 145 MG TAB PO (08:08)
[2018-05-04] MEDS: PYRIDOXINE 50 MG TAB PO (08:08)
[2018-05-04] MEDS: FAMOTIDINE 20 MG TAB PO (08:08)
[2018-05-04] MEDS: AMLODIPINE 10 MG TAB PO (08:08)
[2018-05-04] MEDS: INSULIN ASPART [NOVOLOG] 3 ML PEN SC ×4 (08:15→20:17)
[2018-05-04] MEDS: PREGABALIN 75 MG CAP PO ×2 (08:23→20:22)
[2018-05-04] MEDS: HEPARIN 5,000 UNIT/0.5 ML VIAL SC ×2 (09:11→20:30)
[2018-05-04] MEDS: GABAPENTIN 300 MG CAP PO (20:22)
[2018-05-04] MEDS: TAMSULOSIN (SR) 0.4 MG CAP PO (20:23)
[2018-05-04] MEDS: INSULIN GLARGINE [LANTus] (100 UNITS/ML) SYG SC (20:30)
[2018-05-04] MEDS: hydrALAzine 20 MG INJ IV (22:22)
[2018-05-05] MEDS: ACCU-CHEK XX (02:00)
[2018-05-05 05:49] LABS: ADD MAN DIFF? NO
[2018-05-05 05:53] LABS: BASOPHILS % 0.6 % (0.0-2.0); EOSINOPHILS # 0.2 10^3/ul (0.0-0.5); EOSINOPHILS % 3.2 % (0.0-7.0); HEMATOCRIT 28.4 % (37.0-47.0); HEMOGLOBIN 8.7 g/dl (12.0-16.0); LYMPHOCYTES # 1.9 10^3/ul (0.8-2.9); LYMPHOCYTES % 27.4 % (15.0-51.0); MEAN CORPUSCULAR HEMOGLOBIN 28.1 pg (29.0-33.0); MEAN CORPUSCULAR HGB CONC 30.6 g/dl (32.0-37.0); MEAN CORPUSCULAR VOLUME 91.6 fl (82.0-101.0); MONOCYTE # 0.7 10^3/ul (0.3-0.9); MONOCYTES % 10.3 % (0.0-11.0); NEUTROPHIL # 4.1 10^3/ul (1.6-7.5); NEUTROPHILS % 57.8 % (39.0-77.0); PLATELET COUNT 277 10^3/UL (140-415); RED CELL DISTRIBUTION WIDTH 14.6 % (11.5-14.5)
[2018-05-05 05:53] LABS: WHITE BLOOD COUNT 7.1 10^3/ul (4.8-10.8)
[2018-05-05 06:15] LABS: ANION GAP 14 (8-16); BLOOD UREA NITROGEN 33 mg/dl (7-20); CALCIUM 8.6 mg/dl (8.4-10.2); CARBON DIOXIDE 22 mmol/L (21-31); CHLORIDE 107 mmol/L (97-110); CREATININE 4.84 mg/dl (0.44-1.00); GLUCOSE 88 mg/dl (70-220); POTASSIUM 4.8 mmol/L (3.5-5.1); SODIUM 138 mmol/L (135-144)
[2018-05-05] MEDS: INSULIN ASPART [NOVOLOG] 3 ML PEN SC ×2 (08:15→12:15)
[2018-05-05] MEDS: BETHANECHOL 25 MG TAB PO ×2 (09:13→12:06)
[2018-05-05] MEDS: FAMOTIDINE 20 MG TAB PO (09:13)
[2018-05-05] MEDS: FENOFIBRATE 145 MG TAB PO (09:13)
[2018-05-05] MEDS: PREGABALIN 75 MG CAP PO (09:13)
[2018-05-05] MEDS: ASPIRIN (EC) 81 MG TAB PO (09:13)
[2018-05-05] MEDS: MULTIVIT/CA CARB/B CMPLX/FA TAB PO (09:13)
[2018-05-05] MEDS: SEVELAMER CARBONATE 800 MG TABLET PO ×2 (09:13→12:02)
[2018-05-05] MEDS: PYRIDOXINE 50 MG TAB PO (09:13)
[2018-05-05] MEDS: AMLODIPINE 10 MG TAB PO (09:13)
[2018-05-05] MEDS: LINAGLIPTIN 5 MG TABLET PO (09:13)
[2018-05-05] MEDS: HEPARIN 5,000 UNIT/0.5 ML VIAL SC (09:16)
== END 2018-05-05 16:40 | disposition home or self-care (01) | DRG 673 ==
LOC: MS2 18:52 → E/R 15:07 → MS2 17:45
PROC: 0JH63XZ Insertion of Tunneled Vascular Access Device into Chest Subcutaneous Tissue and Fascia, Percutaneous Approach (ICD-10-PCS; principal; 2018-04-21 10:45)
PROC: 5A1D70Z Performance of Urinary Filtration, Intermittent, Less than 6 Hours Per Day (ICD-10-PCS; 2018-04-21 10:45)
PROC: 02H633Z Insertion of Infusion Device into Right Atrium, Percutaneous Approach (ICD-10-PCS; 2018-04-21 10:45)
PROC: 30233N1 Transfusion of Nonautologous Red Blood Cells into Peripheral Vein, Percutaneous Approach (ICD-10-PCS; 2018-04-21 10:45)
DX: I12.0 Hypertensive chronic kidney disease with stage 5 chronic kidney disease or end stage renal disease (principal); N18.6 End stage renal disease; N17.9 Acute kidney failure, unspecified; E87.2 Acidosis; E87.1 Hypo-osmolality and hyponatremia; E11.42 Type 2 diabetes mellitus with diabetic polyneuropathy; E21.1 Secondary hyperparathyroidism, not elsewhere classified; E11.22 Type 2 diabetes mellitus with diabetic chronic kidney disease; D63.1 Anemia in chronic kidney disease; E11.65 Type 2 diabetes mellitus with hyperglycemia; E11.21 Type 2 diabetes mellitus with diabetic nephropathy; E11.319 Type 2 diabetes mellitus with unspecified diabetic retinopathy without macular edema; Z91.14 Patient's other noncompliance with medication regimen; Z95.1 Presence of aortocoronary bypass graft; Z99.2 Dependence on renal dialysis; E83.39 Other disorders of phosphorus metabolism; R33.9 Retention of urine, unspecified; E87.5 Hyperkalemia; I70.291 Other atherosclerosis of native arteries of extremities, right leg; K21.9 Gastro-esophageal reflux disease without esophagitis
CPT/HCPCS: 36415; 36430; 71045; 76775; 76937; 80048; 80053; 80061; 81001; 82962; 83036; 83540; 83735; 84100; 84132; 84300; 84484; 85014; 85018; 85025; 85610; 85730; 86704; 86706; 86709; 86803; 86850; 86870; 86900; 86901; 86920; 87045; 87340; 89190; 90935; 93005; 93922; 93970; 97116; 97161; 97530; 99285-25

== ENCOUNTER 2018-05-07 22:09 | Inpatient (IN) | payer OTHER ==
[2018-05-07 23:38] LABS: ADD MAN DIFF? NO
[2018-05-07 23:39] LABS: WHITE BLOOD COUNT 7.9 10^3/ul (4.8-10.8)
[2018-05-07 23:39] LABS: BASOPHIL # 0.1 10^3/ul (0.0-0.1); BASOPHILS % 0.6 % (0.0-2.0); EOSINOPHILS # 0.3 10^3/ul (0.0-0.5); EOSINOPHILS % 3.3 % (0.0-7.0); HEMATOCRIT 28.8 % (37.0-47.0); HEMOGLOBIN 8.8 g/dl (12.0-16.0); LYMPHOCYTES % 25.3 % (15.0-51.0); MEAN CORPUSCULAR HEMOGLOBIN 28.4 pg (29.0-33.0); MEAN CORPUSCULAR HGB CONC 30.6 g/dl (32.0-37.0); MEAN CORPUSCULAR VOLUME 92.9 fl (82.0-101.0); MEAN PLATELET VOLUME 10.7 fl (7.4-10.4); MONOCYTE # 0.8 10^3/ul (0.3-0.9); MONOCYTES % 10.1 % (0.0-11.0); NEUTROPHIL # 4.8 10^3/ul (1.6-7.5); NEUTROPHILS % 60.1 % (39.0-77.0); PLATELET COUNT 279 10^3/UL (140-415); RED CELL DISTRIBUTION WIDTH 14.6 % (11.5-14.5)
[2018-05-07 23:58] LABS: ALANINE AMINOTRANSFERASE 16 IU/L (13-69); ALBUMIN 3.3 g/dl (3.3-4.9); ALBUMIN/GLOBULIN RATIO 0.94; ALKALINE PHOSPHATASE 66 IU/L (42-121); ANION GAP 11 (8-16); ASPARTATE AMINO TRANSFERASE 26 IU/L (15-46); BILIRUBIN,INDIRECT 0.2 mg/dl (0-1.1); BILIRUBIN,TOTAL 0.2 mg/dl (0.2-1.3); BLOOD UREA NITROGEN 28 mg/dl (7-20); CARBON DIOXIDE 29 mmol/L (21-31); CHLORIDE 106 mmol/L (97-110); CREATININE 3.96 mg/dl (0.44-1.00); GLUCOSE 174 mg/dl (70-220); POTASSIUM 4.5 mmol/L (3.5-5.1); SODIUM 141 mmol/L (135-144); TOTAL PROTEIN 6.8 g/dl (6.1-8.1)
[2018-05-08 00:09] LABS: TROPONIN-I 0.085 ng/ml (0.000-0.120)
[2018-05-08] MEDS: FUROSEMIDE 40 MG INJ IV (05:16)
[2018-05-08 06:41] LABS: CREATINE KINASE 148 IU/L (23-200)
[2018-05-08 06:57] LABS: CK INDEX 1.6; CK-MB 2.38 ng/ml (0.0-2.4); TROPONIN-I 0.088 ng/ml (0.000-0.120)
[2018-05-08] MEDS: ALBUTEROL 0.083% (NEB) 2.5 MG/3 ML AMP HHN (07:05)
[2018-05-08 11:53] LABS: CREATINE KINASE 168 IU/L (23-200)
[2018-05-08 12:06] LABS: CK INDEX 1.7
[2018-05-08 12:09] LABS: CK-MB 2.81 ng/ml (0.0-2.4); TROPONIN-I 0.052 ng/ml (0.000-0.120)
[2018-05-08] MEDS ORDERED: ONDANSETRON 4 MG INJ IV (13:00)
[2018-05-08] MEDS ORDERED: HYDROmorphONE 0.5 MG/0.5 ML SYG IV (13:00)
[2018-05-08] MEDS ORDERED: BISACODYL (EC) 5 MG TAB PO (13:00)
[2018-05-08] MEDS ORDERED: NACL 0.9% 3 ML SYG IV (13:00)
[2018-05-08] MEDS ORDERED: ONDANSETRON 4 MG TAB PO (13:00)
[2018-05-08] MEDS ORDERED: BISACODYL 10 MG SUPP PR (13:00)
[2018-05-08] MEDS ORDERED: NA PHOSPHATE/BIPHOS 133 ML ENEMA PR (13:00)
[2018-05-08] MEDS: FAMOTIDINE 20 MG TAB PO (14:09)
[2018-05-08] MEDS ORDERED: SOD CHLORIDE 0.9% 1,000 ML IV (15:37)
[2018-05-08] MEDS ORDERED: ALBUMIN HUMAN 25% 100 ML IV (16:00)
[2018-05-08] MEDS: ASPIRIN (EC) 81 MG TAB PO (16:15)
[2018-05-08] MEDS: LOSARTAN 50 MG TAB PO (16:15)
[2018-05-08] MEDS: SEVELAMER CARBONATE 800 MG TABLET PO (17:07)
[2018-05-08] MEDS: INSULIN ASPART [NOVOLOG] 3 ML PEN SC ×2 (17:09→21:00)
[2018-05-08] MEDS ORDERED: FAMOTIDINE 20 MG TAB PO (21:00)
[2018-05-08] MEDS ORDERED: SODIUM BICARBONATE 1300 MG PO (21:00)
[2018-05-08] MEDS: HEPARIN 1000 UNITS/ML 10 ML INJ CATHETER (22:01)
[2018-05-08] MEDS: BETHANECHOL 25 MG TAB PO (22:04)
[2018-05-08] MEDS: GABAPENTIN 300 MG CAP PO (22:05)
[2018-05-08] MEDS: TAMSULOSIN (SR) 0.4 MG CAP PO (22:05)
[2018-05-08] MEDS: hydrALAzine 20 MG INJ IV (23:57)
[2018-05-09] MEDS: ACCU-CHEK XX (01:17)
[2018-05-09 06:53] LABS: ADD MAN DIFF? NO
[2018-05-09 06:55] LABS: WHITE BLOOD COUNT 6.7 10^3/ul (4.8-10.8)
[2018-05-09 06:55] LABS: BASOPHILS % 0.6 % (0.0-2.0); EOSINOPHILS # 0.3 10^3/ul (0.0-0.5); EOSINOPHILS % 3.7 % (0.0-7.0); HEMATOCRIT 27.7 % (37.0-47.0); HEMOGLOBIN 8.5 g/dl (12.0-16.0); LYMPHOCYTES # 1.3 10^3/ul (0.8-2.9); LYMPHOCYTES % 19.7 % (15.0-51.0); MEAN CORPUSCULAR HEMOGLOBIN 27.9 pg (29.0-33.0); MEAN CORPUSCULAR HGB CONC 30.7 g/dl (32.0-37.0); MEAN CORPUSCULAR VOLUME 90.8 fl (82.0-101.0); MEAN PLATELET VOLUME 10.8 fl (7.4-10.4); MONOCYTE # 0.6 10^3/ul (0.3-0.9); MONOCYTES % 9.2 % (0.0-11.0); NEUTROPHIL # 4.4 10^3/ul (1.6-7.5); NEUTROPHILS % 66.2 % (39.0-77.0); PLATELET COUNT 255 10^3/UL (140-415); RED BLOOD COUNT 3.05 10^6/ul (4.20-5.40); RED CELL DISTRIBUTION WIDTH 14.3 % (11.5-14.5)
[2018-05-09 07:07] LABS: HEMOGLOBIN A1C 7.1 % (0-5.9)
[2018-05-09 07:16] LABS: ALANINE AMINOTRANSFERASE 18 IU/L (13-69); ALBUMIN 3.1 g/dl (3.3-4.9); ALBUMIN/GLOBULIN RATIO 0.86; ALKALINE PHOSPHATASE 41 IU/L (42-121); ANION GAP 12 (8-16); ASPARTATE AMINO TRANSFERASE 27 IU/L (15-46); BILIRUBIN,INDIRECT 0.2 mg/dl (0-1.1); BILIRUBIN,TOTAL 0.2 mg/dl (0.2-1.3); BLOOD UREA NITROGEN 20 mg/dl (7-20); CALCIUM 8.3 mg/dl (8.4-10.2); CARBON DIOXIDE 24 mmol/L (21-31); CHLORIDE 105 mmol/L (97-110); CREATININE 3.33 mg/dl (0.44-1.00); GLUCOSE 140 mg/dl (70-220); MAGNESIUM 1.8 mg/dl (1.7-2.5); PHOSPHORUS 4.2 mg/dl (2.5-4.9); POTASSIUM 4.6 mmol/L (3.5-5.1); SODIUM 136 mmol/L (135-144); TOTAL PROTEIN 6.7 g/dl (6.1-8.1)
[2018-05-09 07:25] LABS: IRON 38 ug/dl (35-150)
[2018-05-09 07:25] LABS: TROPONIN-I 0.066 ng/ml (0.000-0.120)
[2018-05-09 07:28] LABS: INR 1.03; PROTIME 13.6 Sec (11.9-14.9); PT RATIO 1.1
[2018-05-09 07:32] LABS: CHOL/HDL RATIO 4.9 RATIO; HDL CHOLESTEROL 42 mg/dl (35-98); LDL CHOLESTEROL,CALCULATED 118 mg/dl; TRIGLYCERIDES 237 mg/dl (0-149)
[2018-05-09 07:32] LABS: CHOLESTEROL 207 mg/dl (100-200)
[2018-05-09 07:35] LABS: % IRON SATURATION 12 % SAT (22-52); TOTAL IRON BINDING CAPACITY 306 ug/dl (241-421)
[2018-05-09] MEDS: SEVELAMER CARBONATE 800 MG TABLET PO ×3 (07:37→17:09)
[2018-05-09] MEDS: INSULIN ASPART [NOVOLOG] 3 ML PEN SC ×4 (07:42→20:16)
[2018-05-09 08:08] LABS: FERRITIN 14.2 ng/ml (11.1-264.0)
[2018-05-09] MEDS: PYRIDOXINE 50 MG TAB PO (08:15)
[2018-05-09] MEDS: FENOFIBRATE 145 MG TAB PO (08:15)
[2018-05-09] MEDS: BETHANECHOL 25 MG TAB PO ×3 (08:15→20:16)
[2018-05-09] MEDS: ASPIRIN (EC) 81 MG TAB PO (08:15)
[2018-05-09] MEDS: FAMOTIDINE 20 MG TAB PO (08:15)
[2018-05-09] MEDS: LOSARTAN 50 MG TAB PO (08:17)
[2018-05-09] MEDS: ENOXAPARIN 30 MG/0.3 ML SYG SC (08:19)
[2018-05-09] MEDS ORDERED: SODIUM CHLORIDE 0.9% 1L BAG IV (16:00)
[2018-05-09] MEDS ORDERED: ALBUMIN HUMAN 25% 50 ML IV (16:00)
[2018-05-09] MEDS ORDERED: HEPARIN 1000 UNITS/ML 10 ML INJ CATHETER (16:00)
[2018-05-09] MEDS: FUROSEMIDE 40 MG TAB PO (17:10)
[2018-05-09] MEDS: GABAPENTIN 300 MG CAP PO (20:17)
[2018-05-09] MEDS: TAMSULOSIN (SR) 0.4 MG CAP PO (20:17)
[2018-05-09] MEDS: OXYCODONE/ACETAMINOPHEN (5/325) TAB PO (20:51)
[2018-05-09] MEDS: DOCUSATE SODIUM 100 MG CAP PO (20:51)
[2018-05-09] MEDS: hydrALAzine 20 MG INJ IV (21:56)
[2018-05-10] MEDS: ACCU-CHEK XX (01:22)
[2018-05-10] MEDS: FUROSEMIDE 40 MG TAB PO ×2 (05:48→17:14)
[2018-05-10 06:54] LABS: ADD MAN DIFF? NO
[2018-05-10 06:58] LABS: WHITE BLOOD COUNT 6.3 10^3/ul (4.8-10.8)
[2018-05-10 06:58] LABS: BASOPHILS % 0.6 % (0.0-2.0); EOSINOPHILS # 0.2 10^3/ul (0.0-0.5); EOSINOPHILS % 3.7 % (0.0-7.0); HEMATOCRIT 28.5 % (37.0-47.0); HEMOGLOBIN 8.6 g/dl (12.0-16.0); LYMPHOCYTES # 1.3 10^3/ul (0.8-2.9); LYMPHOCYTES % 19.9 % (15.0-51.0); MEAN CORPUSCULAR HEMOGLOBIN 27.7 pg (29.0-33.0); MEAN CORPUSCULAR HGB CONC 30.2 g/dl (32.0-37.0); MEAN CORPUSCULAR VOLUME 91.9 fl (82.0-101.0); MEAN PLATELET VOLUME 10.9 fl (7.4-10.4); MONOCYTE # 0.6 10^3/ul (0.3-0.9); MONOCYTES % 9.9 % (0.0-11.0); NEUTROPHIL # 4.1 10^3/ul (1.6-7.5); NEUTROPHILS % 65.4 % (39.0-77.0); PLATELET COUNT 264 10^3/UL (140-415); RED CELL DISTRIBUTION WIDTH 14.2 % (11.5-14.5)
[2018-05-10 07:10] LABS: ANION GAP 11 (8-16); BLOOD UREA NITROGEN 27 mg/dl (7-20); CALCIUM 8.5 mg/dl (8.4-10.2); CARBON DIOXIDE 24 mmol/L (21-31); CHLORIDE 105 mmol/L (97-110); CREATININE 4.46 mg/dl (0.44-1.00); GLUCOSE 143 mg/dl (70-220); POTASSIUM 5.3 mmol/L (3.5-5.1); SODIUM 135 mmol/L (135-144)
[2018-05-10 07:12] LABS: ANION GAP 12 (8-16); BLOOD UREA NITROGEN 27 mg/dl (7-20); CALCIUM 8.4 mg/dl (8.4-10.2); CARBON DIOXIDE 23 mmol/L (21-31); CHLORIDE 105 mmol/L (97-110); CREATININE 4.61 mg/dl (0.44-1.00); GLUCOSE 146 mg/dl (70-220); POTASSIUM 5.2 mmol/L (3.5-5.1); SODIUM 135 mmol/L (135-144)
[2018-05-10] MEDS: SEVELAMER CARBONATE 800 MG TABLET PO ×3 (07:23→17:13)
[2018-05-10] MEDS: INSULIN ASPART [NOVOLOG] 3 ML PEN SC ×3 (07:26→17:16)
[2018-05-10] MEDS: FAMOTIDINE 20 MG TAB PO (08:13)
[2018-05-10] MEDS: BETHANECHOL 25 MG TAB PO ×2 (08:13→12:49)
[2018-05-10] MEDS: LOSARTAN 50 MG TAB PO (08:14)
[2018-05-10] MEDS: FENOFIBRATE 145 MG TAB PO (08:14)
[2018-05-10] MEDS: PYRIDOXINE 50 MG TAB PO (08:14)
[2018-05-10] MEDS: ASPIRIN (EC) 81 MG TAB PO (08:14)
[2018-05-10] MEDS: ENOXAPARIN 30 MG/0.3 ML SYG SC (08:19)
[2018-05-10] MEDS: HEPARIN 1000 UNITS/ML 10 ML INJ CATHETER (16:18)
[2018-05-10] MEDS: EPOETIN 4000 UNITS/1 ML INJ (ESRD) SC (17:15)
== END 2018-05-10 20:00 | disposition home or self-care (01) | DRG 291 ==
LOC: E/R 22:09 → TEL 05-08 05:13
PROC: 5A1D70Z Performance of Urinary Filtration, Intermittent, Less than 6 Hours Per Day (ICD-10-PCS; principal; 2018-05-08)
DX: I13.2 Hypertensive heart and chronic kidney disease with heart failure and with stage 5 chronic kidney disease, or end stage renal disease (principal); N18.6 End stage renal disease; I50.9 Heart failure, unspecified; Z99.2 Dependence on renal dialysis; Z95.1 Presence of aortocoronary bypass graft; I25.10 Atherosclerotic heart disease of native coronary artery without angina pectoris; E11.22 Type 2 diabetes mellitus with diabetic chronic kidney disease; I25.2 Old myocardial infarction; I25.5 Ischemic cardiomyopathy; E11.40 Type 2 diabetes mellitus with diabetic neuropathy, unspecified; D63.1 Anemia in chronic kidney disease; E78.5 Hyperlipidemia, unspecified; J44.9 Chronic obstructive pulmonary disease, unspecified; R33.9 Retention of urine, unspecified
CPT/HCPCS: 36415; 71045; 80048; 80053; 80061; 82550; 82553; 82728; 82962; 83036; 83540; 83735; 84100; 84443; 84484; 85025; 85610; 87081; 90935; 93005; 93306; 94664; 99285-25

== ENCOUNTER 2018-06-01 16:54 | Inpatient (IN) | payer OTHER ==
[2018-06-01 17:27] LABS: ADD MAN DIFF? NO
[2018-06-01 17:28] LABS: BASOPHILS % 0.4 % (0.0-2.0); EOSINOPHILS # 0.2 10^3/ul (0.0-0.5); EOSINOPHILS % 2.2 % (0.0-7.0); HEMATOCRIT 25.6 % (37.0-47.0); HEMOGLOBIN 8.1 g/dl (12.0-16.0); LYMPHOCYTES # 1.6 10^3/ul (0.8-2.9); LYMPHOCYTES % 22.9 % (15.0-51.0); MEAN CORPUSCULAR HEMOGLOBIN 27.9 pg (29.0-33.0); MEAN CORPUSCULAR HGB CONC 31.6 g/dl (32.0-37.0); MEAN CORPUSCULAR VOLUME 88.3 fl (82.0-101.0); MEAN PLATELET VOLUME 10.5 fl (7.4-10.4); MONOCYTE # 0.6 10^3/ul (0.3-0.9); MONOCYTES % 9.2 % (0.0-11.0); NEUTROPHIL # 4.5 10^3/ul (1.6-7.5); NEUTROPHILS % 64.6 % (39.0-77.0); PLATELET COUNT 232 10^3/UL (140-415); RED CELL DISTRIBUTION WIDTH 13.9 % (11.5-14.5)
[2018-06-01 17:28] LABS: WHITE BLOOD COUNT 6.9 10^3/ul (4.8-10.8)
[2018-06-01 17:41] LABS: ALANINE AMINOTRANSFERASE 18 IU/L (13-69); ALBUMIN 3.1 g/dl (3.3-4.9); ALBUMIN/GLOBULIN RATIO 0.93; ALKALINE PHOSPHATASE 71 IU/L (42-121); ANION GAP 15 (8-16); ASPARTATE AMINO TRANSFERASE 29 IU/L (15-46); BLOOD UREA NITROGEN 34 mg/dl (7-20); CALCIUM 8.1 mg/dl (8.4-10.2); CARBON DIOXIDE 23 mmol/L (21-31); CHLORIDE 102 mmol/L (97-110); CREATININE 3.97 mg/dl (0.44-1.00); GLUCOSE 188 mg/dl (70-220); SODIUM 136 mmol/L (135-144); TOTAL PROTEIN 6.4 g/dl (6.1-8.1)
[2018-06-01] MEDS: ASPIRIN 81 MG TAB PO (19:30)
[2018-06-01] MEDS: HEPARIN 25000 UNITS/250 ML 250 ML IV (19:32)
[2018-06-01] MEDS: HEPARIN 1000 UNITS/ML 10 ML INJ IV (19:32)
[2018-06-01 19:41] LABS: INR 1.01; PROTIME 13.4 Sec (11.9-14.9)
[2018-06-01 19:42] LABS: PARTIAL THROMBOPLASTIN TIME 27.5 Sec (25.0-35.0)
[2018-06-01] MEDS ORDERED: NITROGLYCERIN (SL) 0.4 MG TAB SL (22:00)
[2018-06-01] MEDS ORDERED: ALBUTEROL/IPRATROPIUM (NEB) 3 ML AMP HHN (22:00)
[2018-06-01] MEDS ORDERED: NACL 0.9% 3 ML SYG IV (22:00)
[2018-06-01] MEDS ORDERED: ONDANSETRON 4 MG INJ IV (22:00)
[2018-06-01] MEDS ORDERED: GLUCOSE GEL 15 GRAM TUBE PO ×2 (23:00)
[2018-06-01] MEDS ORDERED: DEXTROSE 50% 50 ML SYRINGE IV ×2 (23:00)
[2018-06-01] MEDS ORDERED: GLUCAGON 1 MG INJ IM (23:00)
[2018-06-01] MEDS ORDERED: GLUCOSE GEL 15 GRAM TUBE BUCCAL (23:00)
[2018-06-01 23:16] LABS: CREATINE KINASE 121 IU/L (23-200)
[2018-06-01 23:29] LABS: CK INDEX 1.7; CK-MB 2.08 ng/ml (0.0-2.4)
[2018-06-02] MEDS: LORAZEPAM 2 MG INJ IV (02:46)
[2018-06-02 04:09] LABS: PARTIAL THROMBOPLASTIN TIME 30.7 Sec (25.0-35.0)
[2018-06-02] MEDS: HEPARIN 1000 UNITS/ML 10 ML INJ IV ×2 (04:45→15:22)
[2018-06-02] MEDS: INSULIN ASPART [NOVOLOG] 3 ML PEN SC ×6 (05:44→21:00)
[2018-06-02] MEDS: SEVELAMER CARBONATE 800 MG TABLET PO ×3 (07:55→18:21)
[2018-06-02] MEDS: ASPIRIN (EC) 81 MG TAB PO (08:25)
[2018-06-02] MEDS: FENOFIBRATE 145 MG TAB PO (08:26)
[2018-06-02] MEDS: FAMOTIDINE 20 MG TAB PO (08:26)
[2018-06-02] MEDS: BETHANECHOL 25 MG TAB PO ×3 (09:00→22:56)
[2018-06-02 09:40] LABS: ADD MAN DIFF? NO
[2018-06-02 09:43] LABS: BASOPHILS % 0.6 % (0.0-2.0); EOSINOPHILS # 0.2 10^3/ul (0.0-0.5); EOSINOPHILS % 3.3 % (0.0-7.0); HEMATOCRIT 27.7 % (37.0-47.0); HEMOGLOBIN 8.6 g/dl (12.0-16.0); LYMPHOCYTES # 1.6 10^3/ul (0.8-2.9); LYMPHOCYTES % 23.7 % (15.0-51.0); MEAN CORPUSCULAR HEMOGLOBIN 27.4 pg (29.0-33.0); MEAN CORPUSCULAR VOLUME 88.2 fl (82.0-101.0); MEAN PLATELET VOLUME 10.4 fl (7.4-10.4); MONOCYTE # 0.6 10^3/ul (0.3-0.9); MONOCYTES % 8.5 % (0.0-11.0); NEUTROPHIL # 4.2 10^3/ul (1.6-7.5); PLATELET COUNT 226 10^3/UL (140-415); RED BLOOD COUNT 3.14 10^6/ul (4.20-5.40); RED CELL DISTRIBUTION WIDTH 13.8 % (11.5-14.5)
[2018-06-02 09:43] LABS: WHITE BLOOD COUNT 6.7 10^3/ul (4.8-10.8)
[2018-06-02 10:15] LABS: ALANINE AMINOTRANSFERASE 26 IU/L (13-69); ALBUMIN 2.9 g/dl (3.3-4.9); ALBUMIN/GLOBULIN RATIO 0.87; ALKALINE PHOSPHATASE 60 IU/L (42-121); ANION GAP 12 (8-16); ASPARTATE AMINO TRANSFERASE 29 IU/L (15-46); BLOOD UREA NITROGEN 35 mg/dl (7-20); CALCIUM 7.9 mg/dl (8.4-10.2); CARBON DIOXIDE 23 mmol/L (21-31); CHLORIDE 103 mmol/L (97-110); CREATININE 4.27 mg/dl (0.44-1.00); GLUCOSE 152 mg/dl (70-220); POTASSIUM 4.3 mmol/L (3.5-5.1); SODIUM 134 mmol/L (135-144); TOTAL PROTEIN 6.2 g/dl (6.1-8.1)
[2018-06-02 10:16] LABS: CREATINE KINASE 107 IU/L (23-200)
[2018-06-02 10:26] LABS: CK INDEX 2.2; CK-MB 2.37 ng/ml (0.0-2.4)
[2018-06-02 12:02] LABS: PARTIAL THROMBOPLASTIN TIME 31.2 Sec (25.0-35.0)
[2018-06-02] MEDS ORDERED: HEPARIN 1000 UNITS/ML 10 ML INJ IV ×2 (14:30)
[2018-06-02] MEDS: HEPARIN 25000 UNITS/D5W 250 ML IV (15:23)
[2018-06-02] MEDS ORDERED: SODIUM CHLORIDE 0.9% 1L BAG IV ×2 (17:00→17:30)
[2018-06-02] MEDS ORDERED: ALBUMIN HUMAN 25% 50 ML IV ×2 (17:00→17:30)
[2018-06-02] MEDS ORDERED: HEPARIN 1000 UNITS/ML 10 ML INJ CATHETER (17:30)
[2018-06-02] MEDS: CLOPIDOGREL 75 MG TAB PO (18:24)
[2018-06-02 18:42] LABS: HEPATITIS B SURFACE ANTIGEN NEGATIVE (NEGATIVE)
[2018-06-02 18:50] LABS: HEPATITIS B SURFACE ANTIBODY NEGATIVE (NEGATIVE)
[2018-06-02] MEDS ORDERED: NON-FORMULARY/PATIENT OWN MED ([Insulin Glargine] 20 UNITS) SC (20:00)
[2018-06-02 22:50] LABS: PARTIAL THROMBOPLASTIN TIME 31.1 Sec (25.0-35.0)
[2018-06-02] MEDS: TAMSULOSIN (SR) 0.4 MG CAP PO (22:56)
[2018-06-02] MEDS: ATORVASTATIN 20 MG TAB PO (22:57)
[2018-06-02] MEDS: INSULIN GLARGINE [LANTus] (100 UNITS/ML) SYG SC (22:59)
[2018-06-02] MEDS: GABAPENTIN 300 MG CAP PO (23:00)
[2018-06-03] MEDS: HEPARIN 1000 UNITS/ML 10 ML INJ IV (00:32)
[2018-06-03] MEDS: INSULIN ASPART [NOVOLOG] 3 ML PEN SC ×5 (01:00→17:00)
[2018-06-03] MEDS: HEPARIN 1000 UNITS/ML 10 ML INJ CATHETER ×2 (02:33→09:20)
[2018-06-03 07:18] LABS: ADD MAN DIFF? NO
[2018-06-03 07:24] LABS: WHITE BLOOD COUNT 5.6 10^3/ul (4.8-10.8)
[2018-06-03 07:24] LABS: BASOPHILS % 0.5 % (0.0-2.0); EOSINOPHILS # 0.1 10^3/ul (0.0-0.5); EOSINOPHILS % 2.5 % (0.0-7.0); HEMOGLOBIN 8.5 g/dl (12.0-16.0); LYMPHOCYTES # 1.1 10^3/ul (0.8-2.9); LYMPHOCYTES % 19.9 % (15.0-51.0); MEAN CORPUSCULAR HEMOGLOBIN 27.6 pg (29.0-33.0); MEAN CORPUSCULAR HGB CONC 31.5 g/dl (32.0-37.0); MEAN CORPUSCULAR VOLUME 87.7 fl (82.0-101.0); MEAN PLATELET VOLUME 10.6 fl (7.4-10.4); MONOCYTE # 0.5 10^3/ul (0.3-0.9); MONOCYTES % 9.2 % (0.0-11.0); NEUTROPHIL # 3.8 10^3/ul (1.6-7.5); NEUTROPHILS % 67.4 % (39.0-77.0); PLATELET COUNT 239 10^3/UL (140-415); RED BLOOD COUNT 3.08 10^6/ul (4.20-5.40); RED CELL DISTRIBUTION WIDTH 13.6 % (11.5-14.5)
[2018-06-03 07:31] LABS: INR 1.01; PROTIME 13.4 Sec (11.9-14.9)
[2018-06-03 07:32] LABS: PARTIAL THROMBOPLASTIN TIME 42.9 Sec (25.0-35.0)
[2018-06-03 07:39] LABS: CREATINE KINASE 85 IU/L (23-200)
[2018-06-03 07:48] LABS: ALANINE AMINOTRANSFERASE 21 IU/L (13-69); ALBUMIN/GLOBULIN RATIO 0.78; ALKALINE PHOSPHATASE 64 IU/L (42-121); ANION GAP 8 (8-16); ASPARTATE AMINO TRANSFERASE 34 IU/L (15-46); BLOOD UREA NITROGEN 15 mg/dl (7-20); CALCIUM 8.9 mg/dl (8.4-10.2); CARBON DIOXIDE 30 mmol/L (21-31); CHLORIDE 102 mmol/L (97-110); CHOL/HDL RATIO 4.7 RATIO; CHOLESTEROL 217 mg/dl (100-200); CREATININE 2.78 mg/dl (0.44-1.00); GLUCOSE 142 mg/dl (70-220); HDL CHOLESTEROL 46 mg/dl (35-98); LDL CHOLESTEROL,CALCULATED 124 mg/dl; POTASSIUM 3.9 mmol/L (3.5-5.1); SODIUM 136 mmol/L (135-144); TOTAL PROTEIN 6.8 g/dl (6.1-8.1); TRIGLYCERIDES 233 mg/dl (0-149)
[2018-06-03 07:51] LABS: CK INDEX 2.9; CK-MB 2.44 ng/ml (0.0-2.4)
[2018-06-03 07:53] LABS: TROPONIN-I 0.698 ng/ml (0.000-0.120)
[2018-06-03] MEDS: SEVELAMER CARBONATE 800 MG TABLET PO ×3 (07:55→17:55)
[2018-06-03] MEDS: FAMOTIDINE 20 MG TAB PO (09:07)
[2018-06-03] MEDS: BETHANECHOL 25 MG TAB PO ×3 (09:07→21:45)
[2018-06-03] MEDS: FENOFIBRATE 145 MG TAB PO (09:08)
[2018-06-03] MEDS: ASPIRIN (EC) 81 MG TAB PO (09:08)
[2018-06-03] MEDS: HEPARIN 25000 UNITS/D5W 250 ML IV (09:24)
[2018-06-03 12:27] LABS: PARTIAL THROMBOPLASTIN TIME 51.5 Sec (25.0-35.0)
[2018-06-03] MEDS ORDERED: MIDAZOLAM 1 MG/ML 2 ML INJ (16:28)
[2018-06-03] MEDS ORDERED: LIDOCAINE 1% (MDV) 20 ML INJ (16:28)
[2018-06-03] MEDS ORDERED: FENTAnyl 50 MCG/ML VIAL (16:28)
[2018-06-03] MEDS ORDERED: IODIXANOL LOCM 100 ML BTL ×2 (16:28→17:01)
[2018-06-03] MEDS ORDERED: morphine (1 MG/ML) 10ML SYRINGE IV (18:54)
[2018-06-03] MEDS: morphine 2 MG INJ IV (18:55)
[2018-06-03] MEDS: SOD CHLORIDE 0.9% 1,000 ML IV (19:27)
[2018-06-03] MEDS: GABAPENTIN 300 MG CAP PO (21:45)
[2018-06-03] MEDS: ATORVASTATIN 20 MG TAB PO (21:45)
[2018-06-03] MEDS: TAMSULOSIN (SR) 0.4 MG CAP PO (21:45)
[2018-06-03] MEDS: QUETIAPINE 25 MG TAB PO (21:45)
[2018-06-03] MEDS: INSULIN GLARGINE [LANTus] (100 UNITS/ML) SYG SC (22:25)
[2018-06-03 22:38] LABS: PARTIAL THROMBOPLASTIN TIME 29.5 Sec (25.0-35.0)
[2018-06-04] MEDS: HEPARIN 1000 UNITS/ML 10 ML INJ CATHETER (00:26)
[2018-06-04] MEDS: EPOETIN 3000 UNITS/1 ML INJ (ESRD) SC (01:41)
[2018-06-04] MEDS: ACCU-CHEK XX (02:00)
[2018-06-04] MEDS: INSULIN ASPART [NOVOLOG] 3 ML PEN SC ×4 (08:02→22:15)
[2018-06-04] MEDS: FAMOTIDINE 20 MG TAB PO (08:29)
[2018-06-04] MEDS: BETHANECHOL 25 MG TAB PO ×3 (08:29→22:08)
[2018-06-04] MEDS: ASPIRIN (EC) 81 MG TAB PO (08:29)
[2018-06-04] MEDS: SEVELAMER CARBONATE 800 MG TABLET PO ×2 (08:29→12:06)
[2018-06-04] MEDS: FENOFIBRATE 145 MG TAB PO (08:29)
[2018-06-04 11:44] LABS: PARTIAL THROMBOPLASTIN TIME 31.6 Sec (25.0-35.0)
[2018-06-04 13:39] LABS: OCCULT BLOOD STOOL NEGATIVE (NEGATIVE)
[2018-06-04 14:54] LABS: PARTIAL THROMBOPLASTIN TIME 33.2 Sec (25.0-35.0)
[2018-06-04] MEDS ORDERED: HEPARIN 1000 UNITS/ML 10 ML INJ CATHETER (15:30)
[2018-06-04] MEDS ORDERED: SODIUM CHLORIDE 0.9% 1L BAG IV (15:30)
[2018-06-04] MEDS ORDERED: ALBUMIN HUMAN 25% 50 ML IV (15:30)
[2018-06-04] MEDS: SOD CHLORIDE 0.45% 1,000 ML IV (17:10)
[2018-06-04 20:46] LABS: ANION GAP 13 (8-16); BLOOD UREA NITROGEN 16 mg/dl (7-20); CALCIUM 8.7 mg/dl (8.4-10.2); CARBON DIOXIDE 28 mmol/L (21-31); CHLORIDE 102 mmol/L (97-110); CREATININE 4.26 mg/dl (0.44-1.00); GLUCOSE 140 mg/dl (70-220); POTASSIUM 4.4 mmol/L (3.5-5.1); SODIUM 139 mmol/L (135-144)
[2018-06-04 20:46] LABS: PARTIAL THROMBOPLASTIN TIME 31.2 Sec (25.0-35.0)
[2018-06-04] MEDS: TAMSULOSIN (SR) 0.4 MG CAP PO (22:07)
[2018-06-04] MEDS: GABAPENTIN 300 MG CAP PO (22:08)
[2018-06-04] MEDS: ATORVASTATIN 20 MG TAB PO (22:09)
[2018-06-04] MEDS: INSULIN GLARGINE [LANTus] (100 UNITS/ML) SYG SC (22:20)
[2018-06-05] MEDS: ACCU-CHEK XX (02:00)
[2018-06-05] MEDS: INSULIN ASPART [NOVOLOG] 3 ML PEN SC ×4 (07:50→21:00)
[2018-06-05] MEDS: ASPIRIN (EC) 81 MG TAB PO (08:54)
[2018-06-05] MEDS: FAMOTIDINE 20 MG TAB PO (08:55)
[2018-06-05] MEDS: FENOFIBRATE 145 MG TAB PO (08:55)
[2018-06-05] MEDS: BETHANECHOL 25 MG TAB PO ×3 (08:56→20:09)
[2018-06-05 08:59] LABS: PARTIAL THROMBOPLASTIN TIME 32.5 Sec (25.0-35.0)
[2018-06-05 09:02] LABS: ANION GAP 13 (8-16); BLOOD UREA NITROGEN 18 mg/dl (7-20); CALCIUM 8.6 mg/dl (8.4-10.2); CARBON DIOXIDE 27 mmol/L (21-31); CHLORIDE 105 mmol/L (97-110); CREATININE 5.39 mg/dl (0.44-1.00); GLUCOSE 87 mg/dl (70-220); MAGNESIUM 2.3 mg/dl (1.7-2.5); PHOSPHORUS 5.5 mg/dl (2.5-4.9); POTASSIUM 4.1 mmol/L (3.5-5.1); SODIUM 141 mmol/L (135-144)
[2018-06-05] MEDS: LOPERAMIDE 2 MG CAP PO (12:36)
[2018-06-05 14:34] LABS: PARTIAL THROMBOPLASTIN TIME 29.9 Sec (25.0-35.0)
[2018-06-05] MEDS: morphine 2 MG INJ IV (15:10)
[2018-06-05] MEDS: SOD CHLORIDE 0.45% 1,000 ML IV (15:10)
[2018-06-05] MEDS: HEPARIN 1000 UNITS/ML 10 ML INJ CATHETER (17:24)
[2018-06-05] MEDS: EPOETIN 3000 UNITS/1 ML INJ (ESRD) SC (18:27)
[2018-06-05 20:07] LABS: PARTIAL THROMBOPLASTIN TIME 29.4 Sec (25.0-35.0)
[2018-06-05] MEDS: ATORVASTATIN 20 MG TAB PO (20:09)
[2018-06-05] MEDS: GABAPENTIN 300 MG CAP PO (20:09)
[2018-06-05] MEDS: TAMSULOSIN (SR) 0.4 MG CAP PO (20:10)
[2018-06-05] MEDS: INSULIN GLARGINE [LANTus] (100 UNITS/ML) SYG SC (23:11)
[2018-06-06 02:11] LABS: PARTIAL THROMBOPLASTIN TIME 28.3 Sec (25.0-35.0)
[2018-06-06] MEDS: ACCU-CHEK XX (02:50)
[2018-06-06] MEDS: CEFAZOLIN 2 GM/50 ML (PMX) 50 ML IVPB (06:18)
[2018-06-06 06:24] LABS: ADD MAN DIFF? NO
[2018-06-06 06:26] LABS: BASOPHILS % 0.4 % (0.0-2.0); EOSINOPHILS # 0.4 10^3/ul (0.0-0.5); EOSINOPHILS % 4.6 % (0.0-7.0); HEMATOCRIT 28.6 % (37.0-47.0); HEMOGLOBIN 8.9 g/dl (12.0-16.0); LYMPHOCYTES # 1.7 10^3/ul (0.8-2.9); LYMPHOCYTES % 20.1 % (15.0-51.0); MEAN CORPUSCULAR HEMOGLOBIN 27.6 pg (29.0-33.0); MEAN CORPUSCULAR HGB CONC 31.1 g/dl (32.0-37.0); MEAN CORPUSCULAR VOLUME 88.8 fl (82.0-101.0); MEAN PLATELET VOLUME 10.5 fl (7.4-10.4); MONOCYTE # 0.7 10^3/ul (0.3-0.9); MONOCYTES % 8.1 % (0.0-11.0); NEUTROPHIL # 5.7 10^3/ul (1.6-7.5); NEUTROPHILS % 66.4 % (39.0-77.0); PLATELET COUNT 222 10^3/UL (140-415); RED BLOOD COUNT 3.22 10^6/ul (4.20-5.40); RED CELL DISTRIBUTION WIDTH 13.5 % (11.5-14.5)
[2018-06-06 06:26] LABS: WHITE BLOOD COUNT 8.5 10^3/ul (4.8-10.8)
[2018-06-06] MEDS ORDERED: PROPOFOL 1000 MG INJ (07:00)
[2018-06-06 07:21] LABS: ANION GAP 10 (8-16); BLOOD UREA NITROGEN 16 mg/dl (7-20); CALCIUM 7.9 mg/dl (8.4-10.2); CARBON DIOXIDE 28 mmol/L (21-31); CHLORIDE 103 mmol/L (97-110); CREATININE 4.53 mg/dl (0.44-1.00); GLUCOSE 123 mg/dl (70-220); MAGNESIUM 2.1 mg/dl (1.7-2.5); PHOSPHORUS 4.2 mg/dl (2.5-4.9); POTASSIUM 3.8 mmol/L (3.5-5.1); SODIUM 137 mmol/L (135-144)
[2018-06-06 07:23] LABS: PARTIAL THROMBOPLASTIN TIME 28.9 Sec (25.0-35.0)
[2018-06-06] MEDS ORDERED: THROMBIN 5000 UNIT VIAL (07:36)
[2018-06-06] MEDS ORDERED: LIDOCAINE 1% (MPF) 30 ML INJ (07:36)
[2018-06-06] MEDS ORDERED: HEPARIN 1000 UNITS/ML 10 ML INJ (07:36)
[2018-06-06] MEDS ORDERED: GELATIN SIZE 100 SPONGE (07:36)
[2018-06-06] MEDS: HEPARIN 1000 UNITS/ML 10 ML INJ IRR (07:45)
[2018-06-06] MEDS: INSULIN ASPART [NOVOLOG] 3 ML PEN SC ×4 (07:55→21:00)
[2018-06-06] MEDS ORDERED: LIDOCAINE 2% (SDV) 5 ML INJ (08:07)
[2018-06-06] MEDS ORDERED: ROPIVACAINE 0.5 % 30 ML VIAL (08:07)
[2018-06-06] MEDS ORDERED: MIDAZOLAM 1 MG/ML 2 ML INJ (08:09)
[2018-06-06] MEDS ORDERED: LIDOCAINE 1% (MDV) 20 ML INJ (08:15)
[2018-06-06] MEDS ORDERED: CEFAZOLIN 1 GM INJ (08:35)
[2018-06-06] MEDS ORDERED: FENTAnyl 50 MCG/ML VIAL (08:41)
[2018-06-06] MEDS: ASPIRIN (EC) 81 MG TAB PO (09:00)
[2018-06-06] MEDS: FAMOTIDINE 20 MG TAB PO (09:00)
[2018-06-06] MEDS: BETHANECHOL 25 MG TAB PO ×3 (09:00→21:00)
[2018-06-06] MEDS: FENOFIBRATE 145 MG TAB PO (09:00)
[2018-06-06] MEDS ORDERED: PHENYLephrine (100 MCG/ML) 5ML SYG ×2 (09:03→09:28)
[2018-06-06] MEDS: GELATIN 2 SQ INCH SPONGE TOP (09:24)
[2018-06-06] MEDS: THROMBIN 5000 UNIT VIAL TOP (09:24)
[2018-06-06] MEDS: LIDOCAINE 1% (MPF) 30 ML INJ INJ (09:24)
[2018-06-06] MEDS ORDERED: LABETALOL HCL 20MG INJ IV (10:00)
[2018-06-06] MEDS ORDERED: hydrALAzine 20 MG INJ IV (10:00)
[2018-06-06] MEDS ORDERED: HYDROmorphONE 1 MG/5 ML IV SYRINGE IV (10:00)
[2018-06-06 14:35] LABS: PARTIAL THROMBOPLASTIN TIME 27.5 Sec (25.0-35.0)
[2018-06-06] MEDS: ACETAMINOPHEN 325 MG TAB PO (16:33)
[2018-06-06] MEDS ORDERED: ALBUMIN HUMAN 25% 50 ML IV (18:00)
[2018-06-06] MEDS ORDERED: SODIUM CHLORIDE 0.9% 1L BAG IV (18:00)
[2018-06-06 18:16] LABS: PARTIAL THROMBOPLASTIN TIME 26.4 Sec (25.0-35.0)
[2018-06-06] MEDS: INSULIN GLARGINE [LANTus] (100 UNITS/ML) SYG SC (20:59)
[2018-06-06] MEDS: ATORVASTATIN 20 MG TAB PO (21:00)
[2018-06-06] MEDS: TAMSULOSIN (SR) 0.4 MG CAP PO (21:00)
[2018-06-06] MEDS: GABAPENTIN 300 MG CAP PO (21:01)
[2018-06-07 01:04] LABS: PARTIAL THROMBOPLASTIN TIME 27.9 Sec (25.0-35.0)
[2018-06-07] MEDS: LOPERAMIDE 2 MG CAP PO ×2 (01:21→14:40)
[2018-06-07] MEDS: ACETAMINOPHEN 325 MG TAB PO ×3 (01:22→19:41)
[2018-06-07] MEDS: ACCU-CHEK XX (01:22)
[2018-06-07 06:35] LABS: ADD MAN DIFF? NO
[2018-06-07 06:42] LABS: WHITE BLOOD COUNT 11.2 10^3/ul (4.8-10.8)
[2018-06-07 06:42] LABS: BASOPHILS % 0.3 % (0.0-2.0); EOSINOPHILS # 0.3 10^3/ul (0.0-0.5); EOSINOPHILS % 2.6 % (0.0-7.0); HEMATOCRIT 26.9 % (37.0-47.0); HEMOGLOBIN 8.4 g/dl (12.0-16.0); LYMPHOCYTES # 2.2 10^3/ul (0.8-2.9); LYMPHOCYTES % 19.4 % (15.0-51.0); MEAN CORPUSCULAR HEMOGLOBIN 27.6 pg (29.0-33.0); MEAN CORPUSCULAR HGB CONC 31.2 g/dl (32.0-37.0); MEAN CORPUSCULAR VOLUME 88.5 fl (82.0-101.0); MEAN PLATELET VOLUME 10.7 fl (7.4-10.4); MONOCYTE # 0.9 10^3/ul (0.3-0.9); MONOCYTES % 7.8 % (0.0-11.0); NEUTROPHIL # 7.8 10^3/ul (1.6-7.5); NEUTROPHILS % 69.5 % (39.0-77.0); PLATELET COUNT 227 10^3/UL (140-415); RED BLOOD COUNT 3.04 10^6/ul (4.20-5.40); RED CELL DISTRIBUTION WIDTH 13.8 % (11.5-14.5)
[2018-06-07 07:04] LABS: ANION GAP 15 (8-16); BLOOD UREA NITROGEN 36 mg/dl (7-20); CALCIUM 8.1 mg/dl (8.4-10.2); CARBON DIOXIDE 24 mmol/L (21-31); CHLORIDE 101 mmol/L (97-110); CREATININE 7.27 mg/dl (0.44-1.00); GLUCOSE 95 mg/dl (70-220); MAGNESIUM 2.2 mg/dl (1.7-2.5); POTASSIUM 4.1 mmol/L (3.5-5.1); SODIUM 136 mmol/L (135-144)
[2018-06-07 07:04] LABS: PARTIAL THROMBOPLASTIN TIME 29.5 Sec (25.0-35.0)
[2018-06-07] MEDS: INSULIN ASPART [NOVOLOG] 3 ML PEN SC ×4 (07:55→20:21)
[2018-06-07] MEDS: FAMOTIDINE 20 MG TAB PO (08:31)
[2018-06-07] MEDS: BETHANECHOL 25 MG TAB PO ×3 (08:32→20:06)
[2018-06-07] MEDS: FENOFIBRATE 145 MG TAB PO (08:32)
[2018-06-07] MEDS: ASPIRIN (EC) 81 MG TAB PO (08:32)
[2018-06-07] MEDS ORDERED: ALBUMIN HUMAN 25% 50 ML IV (12:30)
[2018-06-07] MEDS: HEPARIN 1000 UNITS/ML 10 ML INJ CATHETER (13:01)
[2018-06-07 14:02] LABS: PARTIAL THROMBOPLASTIN TIME 28.6 Sec (25.0-35.0)
[2018-06-07] MEDS: EPOETIN 3000 UNITS/1 ML INJ (ESRD) SC (18:52)
[2018-06-07] MEDS: TAMSULOSIN (SR) 0.4 MG CAP PO (20:06)
[2018-06-07] MEDS: GABAPENTIN 300 MG CAP PO (20:06)
[2018-06-07] MEDS: ATORVASTATIN 20 MG TAB PO (20:06)
[2018-06-07] MEDS: INSULIN GLARGINE [LANTus] (100 UNITS/ML) SYG SC (20:21)
[2018-06-07] MEDS: morphine LIQ (10 MG/5 ML) CUP PO (22:26)
[2018-06-08] MEDS: ACCU-CHEK XX (02:00)
[2018-06-08] MEDS: INSULIN ASPART [NOVOLOG] 3 ML PEN SC ×2 (07:55→11:50)
[2018-06-08] MEDS: ASPIRIN (EC) 81 MG TAB PO (09:12)
[2018-06-08] MEDS: FENOFIBRATE 145 MG TAB PO (09:12)
[2018-06-08] MEDS: FAMOTIDINE 20 MG TAB PO (09:12)
[2018-06-08] MEDS: BETHANECHOL 25 MG TAB PO ×2 (09:12→13:14)
== END 2018-06-08 13:33 | disposition home or self-care (01) | DRG 264 ==
LOC: TEL 19:36 → E/R 16:54
PROC: 4A023N7 Measurement of Cardiac Sampling and Pressure, Left Heart, Percutaneous Approach (ICD-10-PCS; principal; 2018-06-03 15:30)
PROC: B211YZZ Fluoroscopy of Multiple Coronary Arteries using Other Contrast (ICD-10-PCS; 2018-06-03 15:30)
PROC: B218YZZ Fluoroscopy of Left Internal Mammary Bypass Graft using Other Contrast (ICD-10-PCS; 2018-06-03 15:30)
PROC: B212YZZ Fluoroscopy of Single Coronary Artery Bypass Graft using Other Contrast (ICD-10-PCS; 2018-06-03 15:30)
PROC: B300YZZ Plain Radiography of Thoracic Aorta using Other Contrast (ICD-10-PCS; 2018-06-03 15:30)
PROC: 03180KD Bypass Left Brachial Artery to Upper Arm Vein with Nonautologous Tissue Substitute, Open Approach (ICD-10-PCS; 2018-06-03 16:14)
PROC: 5A1D70Z Performance of Urinary Filtration, Intermittent, Less than 6 Hours Per Day (ICD-10-PCS; 2018-06-03 16:14)
DX: I21.4 Non-ST elevation (NSTEMI) myocardial infarction (principal); I50.43 Acute on chronic combined systolic (congestive) and diastolic (congestive) heart failure; N18.6 End stage renal disease; I13.2 Hypertensive heart and chronic kidney disease with heart failure and with stage 5 chronic kidney disease, or end stage renal disease; E11.22 Type 2 diabetes mellitus with diabetic chronic kidney disease; I25.10 Atherosclerotic heart disease of native coronary artery without angina pectoris; E78.5 Hyperlipidemia, unspecified; D63.1 Anemia in chronic kidney disease; I25.5 Ischemic cardiomyopathy; I25.82 Chronic total occlusion of coronary artery; R19.7 Diarrhea, unspecified; E11.51 Type 2 diabetes mellitus with diabetic peripheral angiopathy without gangrene; F41.9 Anxiety disorder, unspecified; E83.51 Hypocalcemia; Z95.1 Presence of aortocoronary bypass graft; Z79.4 Long term (current) use of insulin
CPT/HCPCS: 36415; 71045; 80048; 80053; 80061; 82270; 82550; 82553; 82962; 83735; 84100; 84439; 84443; 84484; 85025; 85610; 85730; 86706; 87045; 87075; 87081; 87340; 90935; 93005; 93306; 93459; 96374; 96375; 99285-25

== ENCOUNTER 2018-06-11 18:08 | Emergency (ER) | payer OTHER ==
[2018-06-11 23:20] LABS: ADD MAN DIFF? NO
[2018-06-11 23:21] LABS: BASOPHIL # 0.1 10^3/ul (0.0-0.1); BASOPHILS % 0.5 % (0.0-2.0); EOSINOPHILS # 0.3 10^3/ul (0.0-0.5); EOSINOPHILS % 2.8 % (0.0-7.0); HEMATOCRIT 25.5 % (37.0-47.0); HEMOGLOBIN 7.8 g/dl (12.0-16.0); LYMPHOCYTES # 2.1 10^3/ul (0.8-2.9); LYMPHOCYTES % 20.6 % (15.0-51.0); MEAN CORPUSCULAR HEMOGLOBIN 26.8 pg (29.0-33.0); MEAN CORPUSCULAR HGB CONC 30.6 g/dl (32.0-37.0); MEAN CORPUSCULAR VOLUME 87.6 fl (82.0-101.0); MEAN PLATELET VOLUME 10.5 fl (7.4-10.4); MONOCYTES % 10.3 % (0.0-11.0); NEUTROPHIL # 6.5 10^3/ul (1.6-7.5); NEUTROPHILS % 65.4 % (39.0-77.0); PLATELET COUNT 261 10^3/UL (140-415); RED BLOOD COUNT 2.91 10^6/ul (4.20-5.40); RED CELL DISTRIBUTION WIDTH 13.9 % (11.5-14.5)
[2018-06-11] MEDS: ONDANSETRON 4 MG INJ IV (23:51)
[2018-06-11] MEDS: morphine 4 MG/ML VIAL IV (23:51)
[2018-06-12 00:01] LABS: TROPONIN-I 0.106 ng/ml (0.000-0.120)
[2018-06-12 00:12] LABS: ALANINE AMINOTRANSFERASE 12 IU/L (13-69); ALBUMIN/GLOBULIN RATIO 0.93; ALKALINE PHOSPHATASE 47 IU/L (42-121); ANION GAP 15 (8-16); ASPARTATE AMINO TRANSFERASE 28 IU/L (15-46); BLOOD UREA NITROGEN 34 mg/dl (7-20); CALCIUM 8.5 mg/dl (8.4-10.2); CARBON DIOXIDE 27 mmol/L (21-31); CHLORIDE 98 mmol/L (97-110); CREATININE 5.19 mg/dl (0.44-1.00); GLUCOSE 104 mg/dl (70-220); LIPASE 109 U/L (23-300); POTASSIUM 4.7 mmol/L (3.5-5.1); SODIUM 135 mmol/L (135-144); TOTAL PROTEIN 6.2 g/dl (6.1-8.1)
== END 2018-06-12 04:24 | disposition home or self-care (01) ==
LOC: E/R 06-12 04:24
DX: D64.9 Anemia, unspecified (principal); R19.7 Diarrhea, unspecified; I10 Essential (primary) hypertension; I25.10 Atherosclerotic heart disease of native coronary artery without angina pectoris; E11.9 Type 2 diabetes mellitus without complications; Z95.1 Presence of aortocoronary bypass graft; Z79.4 Long term (current) use of insulin
CPT/HCPCS: 36415; 74176; 80053; 83690; 84484; 85025; 93005; 96374; 96375; 99285-25

== ENCOUNTER 2018-06-13 11:57 | Inpatient (IN) | payer OTHER ==
[2018-06-13 12:27] LABS: ADD MAN DIFF? NO
[2018-06-13 12:29] LABS: WHITE BLOOD COUNT 8.5 10^3/ul (4.8-10.8)
[2018-06-13 12:29] LABS: BASOPHILS % 0.5 % (0.0-2.0); EOSINOPHILS # 0.2 10^3/ul (0.0-0.5); EOSINOPHILS % 1.8 % (0.0-7.0); HEMATOCRIT 26.1 % (37.0-47.0); HEMOGLOBIN 7.6 g/dl (12.0-16.0); LYMPHOCYTES # 2.1 10^3/ul (0.8-2.9); LYMPHOCYTES % 24.4 % (15.0-51.0); MEAN CORPUSCULAR HEMOGLOBIN 25.9 pg (29.0-33.0); MEAN CORPUSCULAR HGB CONC 29.1 g/dl (32.0-37.0); MEAN CORPUSCULAR VOLUME 88.8 fl (82.0-101.0); MEAN PLATELET VOLUME 10.4 fl (7.4-10.4); MONOCYTE # 0.9 10^3/ul (0.3-0.9); MONOCYTES % 10.4 % (0.0-11.0); NEUTROPHIL # 5.3 10^3/ul (1.6-7.5); NEUTROPHILS % 62.3 % (39.0-77.0); PLATELET COUNT 249 10^3/UL (140-415); RED BLOOD COUNT 2.94 10^6/ul (4.20-5.40); RED CELL DISTRIBUTION WIDTH 13.9 % (11.5-14.5)
[2018-06-13] MEDS: KETOROLAC 15 MG INJ IV (12:29)
[2018-06-13] MEDS: ONDANSETRON 4 MG INJ IV (12:29)
[2018-06-13] MEDS: LORAZEPAM 0.5 MG TAB PO (12:30)
[2018-06-13] MEDS: ASPIRIN 81 MG TAB PO (12:30)
[2018-06-13 12:50] LABS: ALANINE AMINOTRANSFERASE 11 IU/L (13-69); ALBUMIN 3.3 g/dl (3.3-4.9); ALBUMIN/GLOBULIN RATIO 0.91; ALKALINE PHOSPHATASE 51 IU/L (42-121); ANION GAP 15 (8-16); ASPARTATE AMINO TRANSFERASE 30 IU/L (15-46); BLOOD UREA NITROGEN 23 mg/dl (7-20); CALCIUM 8.3 mg/dl (8.4-10.2); CARBON DIOXIDE 28 mmol/L (21-31); CHLORIDE 98 mmol/L (97-110); CREATININE 4.12 mg/dl (0.44-1.00); GLUCOSE 164 mg/dl (70-220); LIPASE 189 U/L (23-300); POTASSIUM 4.1 mmol/L (3.5-5.1); SODIUM 137 mmol/L (135-144); TOTAL PROTEIN 6.9 g/dl (6.1-8.1)
[2018-06-13 13:01] LABS: TROPONIN-I 0.054 ng/ml (0.000-0.120)
[2018-06-13 14:04] LABS: INR 0.98; PROTIME 13.1 Sec (11.9-14.9)
[2018-06-13 14:05] LABS: PARTIAL THROMBOPLASTIN TIME 33.1 Sec (25.0-35.0)
[2018-06-13] MEDS ORDERED: DOCUSATE SODIUM 100 MG CAP PO (15:00)
[2018-06-13] MEDS ORDERED: ALBUTEROL/IPRATROPIUM (NEB) 3 ML AMP HHN (15:00)
[2018-06-13] MEDS ORDERED: GLUCAGON 1 MG INJ IM (15:00)
[2018-06-13] MEDS ORDERED: GLUCOSE GEL 15 GRAM TUBE BUCCAL (15:00)
[2018-06-13] MEDS ORDERED: LORAZEPAM 0.5 MG TAB PO (15:00)
[2018-06-13] MEDS ORDERED: GLUCOSE GEL 15 GRAM TUBE PO ×2 (15:00)
[2018-06-13] MEDS ORDERED: DEXTROSE 50% 50 ML SYRINGE IV ×2 (15:00)
[2018-06-13] MEDS ORDERED: ACETAMINOPHEN 325 MG TAB PO (15:00)
[2018-06-13] MEDS ORDERED: MAGNESIUM HYDROXIDE 30ML CUP PO (15:00)
[2018-06-13] MEDS ORDERED: NACL 0.9% 3 ML SYG IV (15:00)
[2018-06-13] MEDS ORDERED: NITROGLYCERIN (SL) 0.4 MG TAB SL (15:00)
[2018-06-13] MEDS ORDERED: HYDROCODONE/APAP (5/325) TAB PO (15:00)
[2018-06-13] MEDS ORDERED: NA PHOSPHATE/BIPHOS 133 ML ENEMA PR (15:00)
[2018-06-13 16:14] LABS: CREATINE KINASE 102 IU/L (23-200)
[2018-06-13 16:27] LABS: CK INDEX 1.5; CK-MB 1.53 ng/ml (0.0-2.4); TROPONIN-I 0.042 ng/ml (0.000-0.120)
[2018-06-13 16:36] LABS: FREE T4 (FREE THYROXINE) 1.18 ng/dl (0.78-2.44)
[2018-06-13] MEDS: INSULIN ASPART [NOVOLOG] 3 ML PEN SC ×2 (17:00→21:00)
[2018-06-13] MEDS: SEVELAMER CARBONATE 800 MG TABLET PO (17:55)
[2018-06-13] MEDS ORDERED: BUMETANIDE 1 MG TAB PO (18:00)
[2018-06-13] MEDS ORDERED: SODIUM CHLORIDE 0.9% 1L BAG IV (18:00)
[2018-06-13] MEDS ORDERED: ALBUMIN HUMAN 25% 50 ML IV (18:00)
[2018-06-13] MEDS: EPOETIN 4000 UNITS/1 ML INJ (ESRD) SC (20:09)
[2018-06-13] MEDS: ATORVASTATIN 10 MG TAB PO (20:10)
[2018-06-13] MEDS: GABAPENTIN 300 MG CAP PO (20:10)
[2018-06-13] MEDS ORDERED: NA BICARBONATE 650 MG TAB PO (21:00)
[2018-06-13] MEDS ORDERED: TAMSULOSIN (SR) 0.4 MG CAP PO (21:00)
[2018-06-13 21:18] LABS: CREATINE KINASE 94 IU/L (23-200)
[2018-06-13 21:28] LABS: CK INDEX 1.9; CK-MB 1.81 ng/ml (0.0-2.4); TROPONIN-I 0.045 ng/ml (0.000-0.120)
[2018-06-13] MEDS: morphine 2 MG INJ IV (22:09)
[2018-06-13] MEDS: BETHANECHOL 25 MG TAB PO (22:45)
[2018-06-13] MEDS: INSULIN GLARGINE [LANTus] (100 UNITS/ML) SYG SC (23:27)
[2018-06-14] MEDS: ACCU-CHEK XX (01:04)
[2018-06-14] MEDS: ONDANSETRON 4 MG INJ IV (05:17)
[2018-06-14 06:17] LABS: ADD MAN DIFF? NO
[2018-06-14 06:36] LABS: WHITE BLOOD COUNT 6.8 10^3/ul (4.8-10.8)
[2018-06-14 06:36] LABS: BASOPHILS % 0.4 % (0.0-2.0); EOSINOPHILS # 0.2 10^3/ul (0.0-0.5); EOSINOPHILS % 3.4 % (0.0-7.0); HEMATOCRIT 27.6 % (37.0-47.0); HEMOGLOBIN 8.5 g/dl (12.0-16.0); LYMPHOCYTES # 1.4 10^3/ul (0.8-2.9); MEAN CORPUSCULAR HEMOGLOBIN 26.9 pg (29.0-33.0); MEAN CORPUSCULAR HGB CONC 30.8 g/dl (32.0-37.0); MEAN CORPUSCULAR VOLUME 87.3 fl (82.0-101.0); MEAN PLATELET VOLUME 10.4 fl (7.4-10.4); MONOCYTE # 0.6 10^3/ul (0.3-0.9); MONOCYTES % 9.1 % (0.0-11.0); NEUTROPHIL # 4.5 10^3/ul (1.6-7.5); NEUTROPHILS % 65.7 % (39.0-77.0); PLATELET COUNT 273 10^3/UL (140-415); RED BLOOD COUNT 3.16 10^6/ul (4.20-5.40); RED CELL DISTRIBUTION WIDTH 13.5 % (11.5-14.5)
[2018-06-14 06:40] LABS: HEMOGLOBIN A1C 6.6 % (0-5.9)
[2018-06-14 06:57] LABS: ANION GAP 17 (8-16); BLOOD UREA NITROGEN 30 mg/dl (7-20); CALCIUM 8.6 mg/dl (8.4-10.2); CARBON DIOXIDE 27 mmol/L (21-31); CHLORIDE 94 mmol/L (97-110); GLUCOSE 125 mg/dl (70-220); MAGNESIUM 1.9 mg/dl (1.7-2.5); POTASSIUM 4.1 mmol/L (3.5-5.1); SODIUM 134 mmol/L (135-144)
[2018-06-14 07:09] LABS: TRIGLYCERIDES 230 mg/dl (0-149)
[2018-06-14] MEDS ORDERED: INSULIN ASPART [NOVOLOG] 3 ML PEN SC (07:25)
[2018-06-14 07:55] LABS: CHOL/HDL RATIO 3.6 RATIO; HDL CHOLESTEROL 41 mg/dl (35-98); LDL CHOLESTEROL,CALCULATED 62 mg/dl
[2018-06-14 07:55] LABS: CHOLESTEROL 149 mg/dl (100-200)
[2018-06-14] MEDS: BETHANECHOL 25 MG TAB PO ×3 (09:14→20:16)
[2018-06-14] MEDS: SEVELAMER CARBONATE 800 MG TABLET PO ×3 (09:14→17:39)
[2018-06-14] MEDS: LOSARTAN 50 MG TAB PO (09:15)
[2018-06-14] MEDS: AMLODIPINE 10 MG TAB PO (09:15)
[2018-06-14] MEDS: FENOFIBRATE 145 MG TAB PO (09:15)
[2018-06-14] MEDS: FAMOTIDINE 20 MG TAB PO (09:15)
[2018-06-14] MEDS: Insulin NOVOLOG SS MILD Algorithm (SS with meals and bedtime) SC ×4 (09:26→20:46)
[2018-06-14] MEDS: hydrALAzine 20 MG INJ IV (11:48)
[2018-06-14] MEDS: EPOETIN 3000 UNITS/1 ML INJ (ESRD) SC (17:41)
[2018-06-14] MEDS: HEPARIN 1000 UNITS/ML 10 ML INJ CATHETER (18:50)
[2018-06-14] MEDS: ATORVASTATIN 10 MG TAB PO (20:15)
[2018-06-14] MEDS: GABAPENTIN 300 MG CAP PO (20:15)
[2018-06-14] MEDS: METOCLOPRAMIDE 10 MG INJ IV (20:16)
[2018-06-14] MEDS: INSULIN GLARGINE [LANTus] (100 UNITS/ML) SYG SC (20:46)
[2018-06-15] MEDS: ACCU-CHEK XX (02:00)
[2018-06-15] MEDS: Insulin NOVOLOG SS MILD Algorithm (SS with meals and bedtime) SC ×3 (07:25→17:13)
[2018-06-15] MEDS: METOCLOPRAMIDE 10 MG INJ IV ×2 (08:48→12:29)
[2018-06-15] MEDS: BETHANECHOL 25 MG TAB PO ×2 (08:48→12:29)
[2018-06-15] MEDS: FENOFIBRATE 145 MG TAB PO (08:48)
[2018-06-15] MEDS: FAMOTIDINE 20 MG TAB PO (08:48)
[2018-06-15] MEDS: SEVELAMER CARBONATE 800 MG TABLET PO ×3 (08:48→17:13)
[2018-06-15] MEDS: LOSARTAN 50 MG TAB PO (08:49)
[2018-06-15] MEDS: AMLODIPINE 10 MG TAB PO (08:49)
[2018-06-15] MEDS ORDERED: LOPERAMIDE HCL 1 MG/5 ML LIQUID (10 ML UD CUP) PO (15:00)
[2018-06-15] MEDS: CEFTRIAXONE 1 GM/50 ML (PMX) 50 ML IVPB (17:13)
[2018-06-15] MEDS: hydrALAzine 20 MG INJ IV (17:14)
[2018-06-15] MEDS: LOPERAMIDE 2 MG CAP PO (18:51)
== END 2018-06-15 19:10 | disposition left against medical advice (07) | DRG 682 ==
LOC: E/R 11:57 → TEL 13:39
PROC: 5A1D70Z Performance of Urinary Filtration, Intermittent, Less than 6 Hours Per Day (ICD-10-PCS; principal; 2018-06-13)
DX: I12.0 Hypertensive chronic kidney disease with stage 5 chronic kidney disease or end stage renal disease (principal); N18.6 End stage renal disease; E11.22 Type 2 diabetes mellitus with diabetic chronic kidney disease; I25.10 Atherosclerotic heart disease of native coronary artery without angina pectoris; E78.5 Hyperlipidemia, unspecified; D63.1 Anemia in chronic kidney disease; G47.00 Insomnia, unspecified; R55 Syncope and collapse; R42 Dizziness and giddiness; Z79.4 Long term (current) use of insulin; Z79.84 Long term (current) use of oral hypoglycemic drugs; Z79.82 Long term (current) use of aspirin; Z99.2 Dependence on renal dialysis; Z95.1 Presence of aortocoronary bypass graft
CPT/HCPCS: 36415; 70450; 71045; 80048; 80053; 80061; 82550; 82553; 82962; 83036; 83690; 83735; 84100; 84439; 84443; 84484; 85025; 85610; 85730; 86850; 86870; 86880; 86900; 86901; 86902; 86920; 87081; 90935; 93005; 93931; 96374; 96375; 97161; 99217; 99285-25; G0378

== ENCOUNTER 2018-06-26 05:39 | Inpatient (IN) | payer OTHER ==
[2018-06-26 06:13] LABS: ADD MAN DIFF? NO
[2018-06-26 06:14] LABS: WHITE BLOOD COUNT 10.3 10^3/ul (4.8-10.8)
[2018-06-26 06:14] LABS: BASOPHIL # 0.1 10^3/ul (0.0-0.1); BASOPHILS % 0.5 % (0.0-2.0); EOSINOPHILS # 0.3 10^3/ul (0.0-0.5); EOSINOPHILS % 2.8 % (0.0-7.0); HEMATOCRIT 29.2 % (37.0-47.0); HEMOGLOBIN 8.8 g/dl (12.0-16.0); LYMPHOCYTES # 1.9 10^3/ul (0.8-2.9); LYMPHOCYTES % 18.8 % (15.0-51.0); MEAN CORPUSCULAR HEMOGLOBIN 25.7 pg (29.0-33.0); MEAN CORPUSCULAR HGB CONC 30.1 g/dl (32.0-37.0); MEAN CORPUSCULAR VOLUME 85.4 fl (82.0-101.0); MEAN PLATELET VOLUME 10.4 fl (7.4-10.4); MONOCYTE # 0.8 10^3/ul (0.3-0.9); MONOCYTES % 7.4 % (0.0-11.0); NEUTROPHIL # 7.2 10^3/ul (1.6-7.5); NEUTROPHILS % 70.1 % (39.0-77.0); PLATELET COUNT 243 10^3/UL (140-415); RED BLOOD COUNT 3.42 10^6/ul (4.20-5.40); RED CELL DISTRIBUTION WIDTH 13.7 % (11.5-14.5)
[2018-06-26 06:36] LABS: ANION GAP 18 (8-16); BLOOD UREA NITROGEN 40 mg/dl (7-20); CALCIUM 8.7 mg/dl (8.4-10.2); CARBON DIOXIDE 21 mmol/L (21-31); CHLORIDE 101 mmol/L (97-110); GLUCOSE 161 mg/dl (70-220); POTASSIUM 4.6 mmol/L (3.5-5.1); SODIUM 135 mmol/L (135-144)
[2018-06-26] MEDS: NITROGLYCERIN 2% 1 GM OINT PKT TD (06:41)
[2018-06-26 06:48] LABS: TROPONIN-I 0.036 ng/ml (0.000-0.120)
[2018-06-26] MEDS ORDERED: ACETAMINOPHEN 325 MG TAB PO ×2 (08:00→09:30)
[2018-06-26] MEDS ORDERED: ONDANSETRON 4 MG INJ IV ×2 (08:00→09:30)
[2018-06-26] MEDS ORDERED: NACL 0.9% 3 ML SYG IV (09:30)
[2018-06-26] MEDS ORDERED: SODIUM CHLORIDE 0.9% 1L BAG IV (10:00)
[2018-06-26] MEDS ORDERED: ALBUMIN HUMAN 25% 50 ML IV (10:00)
[2018-06-26] MEDS ORDERED: GLUCAGON 1 MG INJ IM (10:30)
[2018-06-26] MEDS ORDERED: GLUCOSE GEL 15 GRAM TUBE BUCCAL (10:30)
[2018-06-26] MEDS ORDERED: DEXTROSE 50% 50 ML SYRINGE IV ×2 (10:30)
[2018-06-26] MEDS ORDERED: GLUCOSE GEL 15 GRAM TUBE PO ×2 (10:30)
[2018-06-26] MEDS: INSULIN GLARGINE [LANTus] (100 UNITS/ML) SYG SC (11:27)
[2018-06-26] MEDS ORDERED: ALBUTEROL/IPRATROPIUM (NEB) 3 ML AMP HHN (11:30)
[2018-06-26] MEDS: INSULIN ASPART [NOVOLOG] 3 ML PEN SC ×5 (12:00→21:00)
[2018-06-26] MEDS: SEVELAMER CARBONATE 800 MG TABLET PO ×2 (12:00→17:35)
[2018-06-26] MEDS: BETHANECHOL 25 MG TAB PO ×2 (13:00→21:01)
[2018-06-26] MEDS ORDERED: ALTEPLASE (CATHFLO) 2 MG INJ CATHETER (14:00)
[2018-06-26] MEDS: BUMETANIDE 1 MG INJ IV (16:17)
[2018-06-26] MEDS ORDERED: NON-FORMULARY/PATIENT OWN MED (Carvedilol* 3.125 MG) PO (21:00)
[2018-06-26] MEDS ORDERED: HEPARIN 5,000 UNIT/0.5 ML VIAL SC (21:00)
[2018-06-26] MEDS ORDERED: NA BICARBONATE 650 MG TAB PO (21:00)
[2018-06-26] MEDS ORDERED: TAMSULOSIN (SR) 0.4 MG CAP PO (21:00)
[2018-06-26] MEDS ORDERED: GABAPENTIN 300 MG CAP PO (21:00)
[2018-06-26] MEDS ORDERED: INSULIN GLARGINE [LANTus] (100 UNITS/ML) SYG SC (21:00)
[2018-06-26] MEDS: ATORVASTATIN 10 MG TAB PO (21:01)
[2018-06-26] MEDS: HEPARIN 1000 UNITS/ML 10 ML INJ CATHETER (22:15)
[2018-06-26] MEDS: ALPRAZOLAM 0.25 MG TAB PO (22:17)
[2018-06-26] MEDS: HYDROCODONE/APAP (5/325) TAB PO (22:17)
[2018-06-27] MEDS: ACCU-CHEK XX (01:01)
[2018-06-27] MEDS: HYDROCODONE/APAP (5/325) TAB PO ×2 (01:33→08:53)
[2018-06-27] MEDS: BUMETANIDE 1 MG INJ IV (05:58)
[2018-06-27] MEDS: DIPHENHYDRAMINE 25 MG CAP PO (05:58)
[2018-06-27] MEDS: SEVELAMER CARBONATE 800 MG TABLET PO (07:55)
[2018-06-27] MEDS: INSULIN ASPART [NOVOLOG] 3 ML PEN SC ×2 (07:55)
[2018-06-27] MEDS: INSULIN GLARGINE [LANTus] (100 UNITS/ML) SYG SC (08:00)
[2018-06-27] MEDS: METOPROLOL 25 MG TAB PO ×2 (08:22→08:58)
[2018-06-27] MEDS: FAMOTIDINE 20 MG TAB PO (08:22)
[2018-06-27] MEDS: AMLODIPINE 10 MG TAB PO ×2 (08:22→08:58)
[2018-06-27] MEDS: LOSARTAN 50 MG TAB PO ×2 (08:22→08:57)
[2018-06-27] MEDS: ASPIRIN (EC) 81 MG TAB PO (08:22)
[2018-06-27] MEDS: LINAGLIPTIN 5 MG TABLET PO ×3 (08:23→09:00)
[2018-06-27] MEDS: FENOFIBRATE 145 MG TAB PO (08:23)
[2018-06-27] MEDS: BETHANECHOL 25 MG TAB PO (08:23)
[2018-06-27] MEDS ORDERED: NON-FORMULARY/PATIENT OWN MED (Linagliptin (Tradjenta) 5 MG) PO (09:00)
[2018-06-28] MEDS ORDERED: INSULIN GLARGINE [LANTus] (100 UNITS/ML) SYG SC (08:00)
== END 2018-06-27 11:16 | disposition left against medical advice (07) | DRG 640 ==
LOC: E/R 05:39 → TEL 07:54
PROC: 5A1D70Z Performance of Urinary Filtration, Intermittent, Less than 6 Hours Per Day (ICD-10-PCS; principal; 2018-06-26)
DX: E87.70 Fluid overload, unspecified (principal); N18.6 End stage renal disease; J96.91 Respiratory failure, unspecified with hypoxia; I12.0 Hypertensive chronic kidney disease with stage 5 chronic kidney disease or end stage renal disease; J81.1 Chronic pulmonary edema; Z99.2 Dependence on renal dialysis; I16.0 Hypertensive urgency; S50.01XA Contusion of right elbow, initial encounter; W01.0XXA Fall on same level from slipping, tripping and stumbling without subsequent striking against object, initial encounter; D63.1 Anemia in chronic kidney disease; Z95.1 Presence of aortocoronary bypass graft; Z91.15 Patient's noncompliance with renal dialysis; Z91.14 Patient's other noncompliance with medication regimen; Z87.891 Personal history of nicotine dependence; R09.02 Hypoxemia; E11.65 Type 2 diabetes mellitus with hyperglycemia
CPT/HCPCS: 36415; 71045; 73080-RT; 80048; 82962; 84484; 85025; 90935; 93005; 99285-25

== ENCOUNTER 2018-07-01 13:44 | Inpatient (IN) | payer OTHER ==
[2018-07-01] MEDS ORDERED: ONDANSETRON 4 MG INJ (15:01)
[2018-07-01 15:02] LABS: ADD MAN DIFF? NO
[2018-07-01] MEDS ORDERED: morphine 4 MG/ML VIAL (15:02)
[2018-07-01] MEDS: ONDANSETRON 4 MG INJ IV (15:03)
[2018-07-01] MEDS: morphine 4 MG/ML VIAL IV (15:04)
[2018-07-01] MEDS: SOD CHLORIDE 0.9% 500 ML IV (15:05)
[2018-07-01 15:07] LABS: BASOPHILS % 0.4 % (0.0-2.0); EOSINOPHILS # 0.1 10^3/ul (0.0-0.5); EOSINOPHILS % 1.9 % (0.0-7.0); HEMATOCRIT 25.7 % (37.0-47.0); HEMOGLOBIN 7.8 g/dl (12.0-16.0); LYMPHOCYTES # 1.5 10^3/ul (0.8-2.9); LYMPHOCYTES % 20.6 % (15.0-51.0); MEAN CORPUSCULAR HEMOGLOBIN 25.2 pg (29.0-33.0); MEAN CORPUSCULAR HGB CONC 30.4 g/dl (32.0-37.0); MEAN CORPUSCULAR VOLUME 82.9 fl (82.0-101.0); MEAN PLATELET VOLUME 10.2 fl (7.4-10.4); MONOCYTE # 0.7 10^3/ul (0.3-0.9); MONOCYTES % 9.1 % (0.0-11.0); NEUTROPHILS % 67.6 % (39.0-77.0); PLATELET COUNT 237 10^3/UL (140-415); RED CELL DISTRIBUTION WIDTH 13.9 % (11.5-14.5)
[2018-07-01 15:07] LABS: WHITE BLOOD COUNT 7.3 10^3/ul (4.8-10.8)
[2018-07-01 15:26] LABS: ANION GAP 17 (8-16); BLOOD UREA NITROGEN 45 mg/dl (7-20); CALCIUM 8.5 mg/dl (8.4-10.2); CARBON DIOXIDE 22 mmol/L (21-31); CHLORIDE 98 mmol/L (97-110); CREATININE 5.79 mg/dl (0.44-1.00); GLUCOSE 111 mg/dl (70-220); INR 0.97; POTASSIUM 4.8 mmol/L (3.5-5.1); SODIUM 132 mmol/L (135-144)
[2018-07-01 15:27] LABS: PARTIAL THROMBOPLASTIN TIME 29.8 Sec (25.0-35.0)
[2018-07-01] MEDS ORDERED: ONDANSETRON 4 MG INJ IV ×2 (15:30→17:00)
[2018-07-01] MEDS ORDERED: ACETAMINOPHEN 325 MG TAB PO (15:30)
[2018-07-01 15:37] LABS: TROPONIN-I 0.027 ng/ml (0.000-0.120)
[2018-07-01] MEDS ORDERED: NACL 0.9% 3 ML SYG IV (17:00)
[2018-07-01] MEDS: CEFTRIAXONE 1 GM/50 ML (PMX) 50 ML IVPB (17:43)
[2018-07-01 19:30] LABS: ADD UMIC YES; UR ASCORBIC ACID NEGATIVE (NEGATIVE); UR BILIRUBIN (Dip) NEGATIVE (NEGATIVE); UR BLOOD (Dip) NEGATIVE (NEGATIVE); UR CLARITY CLEAR (CLEAR); UR COLOR YELLOW (YELLOW); UR GLUCOSE (Dip) 2+ mg/dL (NEGATIVE); UR KETONES (Dip) NEGATIVE (NEGATIVE); UR LEUKOCYTE ESTERASE (Dip) NEGATIVE Leu/ul (NEGATIVE); UR NITRITE (Dip) NEGATIVE (NEGATIVE); UR NONSQUAMOUS EPITHELIAL CELL 2 /HPF (NONE SEEN); UR RBC 4 /HPF (0-5); UR SPECIFIC GRAVITY (Dip) 1.026 (1.003-1.030); UR SQUAMOUS EPITHELIAL CELL MODERATE /HPF (FEW); UR TOTAL PROTEIN (Dip) 3+ mg/dl (NEGATIVE); UR UROBILINOGEN (Dip) NEGATIVE (NEGATIVE); UR WBC 6 /HPF (0-5)
[2018-07-01] MEDS: HYDROCODONE/APAP (5/325) TAB PO (23:16)
[2018-07-01] MEDS ORDERED: GLUCOSE GEL 15 GRAM TUBE PO ×2 (23:45)
[2018-07-01] MEDS ORDERED: GLUCOSE GEL 15 GRAM TUBE BUCCAL (23:45)
[2018-07-01] MEDS ORDERED: GLUCAGON 1 MG INJ IM (23:45)
[2018-07-01] MEDS ORDERED: DEXTROSE 50% 50 ML SYRINGE IV ×2 (23:45)
[2018-07-02] MEDS: DEXTROSE 5%-0.45% NACL 1,000 ML IV (00:18)
[2018-07-02] MEDS: ZOLPIDEM 5 MG TAB PO (00:27)
[2018-07-02] MEDS: ACCU-CHEK XX ×5 (02:00→16:53)
[2018-07-02] MEDS: hydrALAzine 20 MG INJ IV (04:50)
[2018-07-02 06:48] LABS: ADD MAN DIFF? NO
[2018-07-02 06:52] LABS: WHITE BLOOD COUNT 5.2 10^3/ul (4.8-10.8)
[2018-07-02 06:52] LABS: BASOPHILS % 0.8 % (0.0-2.0); EOSINOPHILS # 0.2 10^3/ul (0.0-0.5); EOSINOPHILS % 3.4 % (0.0-7.0); HEMOGLOBIN 7.3 g/dl (12.0-16.0); LYMPHOCYTES # 1.2 10^3/ul (0.8-2.9); LYMPHOCYTES % 23.1 % (15.0-51.0); MEAN CORPUSCULAR HEMOGLOBIN 25.5 pg (29.0-33.0); MEAN CORPUSCULAR HGB CONC 30.4 g/dl (32.0-37.0); MEAN CORPUSCULAR VOLUME 83.9 fl (82.0-101.0); MEAN PLATELET VOLUME 10.6 fl (7.4-10.4); MONOCYTE # 0.5 10^3/ul (0.3-0.9); MONOCYTES % 9.8 % (0.0-11.0); NEUTROPHIL # 3.3 10^3/ul (1.6-7.5); NEUTROPHILS % 62.7 % (39.0-77.0); PLATELET COUNT 201 10^3/UL (140-415); RED BLOOD COUNT 2.86 10^6/ul (4.20-5.40); RED CELL DISTRIBUTION WIDTH 13.7 % (11.5-14.5)
[2018-07-02] MEDS ORDERED: METOCLOPRAMIDE 10 MG INJ (07:00)
[2018-07-02] MEDS ORDERED: LIDOCAINE 2% (SDV) 5 ML INJ (07:00)
[2018-07-02 07:06] LABS: INR 0.97
[2018-07-02 07:07] LABS: PARTIAL THROMBOPLASTIN TIME 29.5 Sec (25.0-35.0)
[2018-07-02 07:12] LABS: ALANINE AMINOTRANSFERASE 22 IU/L (13-69); ALKALINE PHOSPHATASE 63 IU/L (42-121); ANION GAP 18 (8-16); ASPARTATE AMINO TRANSFERASE 30 IU/L (15-46); BILIRUBIN,INDIRECT 0.1 mg/dl (0-1.1); BILIRUBIN,TOTAL 0.1 mg/dl (0.2-1.3); BLOOD UREA NITROGEN 47 mg/dl (7-20); CARBON DIOXIDE 21 mmol/L (21-31); CHLORIDE 98 mmol/L (97-110); CREATININE 5.73 mg/dl (0.44-1.00); GLUCOSE 121 mg/dl (70-220); MAGNESIUM 2.3 mg/dl (1.7-2.5); PHOSPHORUS 7.8 mg/dl (2.5-4.9); POTASSIUM 4.5 mmol/L (3.5-5.1); SODIUM 132 mmol/L (135-144); TOTAL PROTEIN 6.3 g/dl (6.1-8.1)
[2018-07-02 07:38] LABS: HEMOGLOBIN A1C 6.9 % (0-5.9)
[2018-07-02] MEDS: INSULIN ASPART [NOVOLOG] 3 ML PEN SC ×4 (07:44→21:59)
[2018-07-02] MEDS: AMLODIPINE 10 MG TAB PO (08:30)
[2018-07-02] MEDS: LOSARTAN 50 MG TAB PO (08:30)
[2018-07-02] MEDS: ASPIRIN (EC) 81 MG TAB PO (08:30)
[2018-07-02] MEDS: ENOXAPARIN 30 MG/0.3 ML SYG SC (08:37)
[2018-07-02] MEDS: DIPHENHYDRAMINE 50 MG CAP PO ×2 (12:51→23:29)
[2018-07-02] MEDS: ACETAMINOPHEN 325 MG TAB PO (12:51)
[2018-07-02] MEDS ORDERED: FENTAnyl 50 MCG/ML VIAL (13:34)
[2018-07-02] MEDS ORDERED: ONDANSETRON 4 MG INJ (13:35)
[2018-07-02] MEDS ORDERED: MIDAZOLAM 1 MG/ML 2 ML INJ (13:35)
[2018-07-02] MEDS ORDERED: LIDOCAINE 1% (MPF) 30 ML INJ (14:41)
[2018-07-02] MEDS ORDERED: THROMBIN 5000 UNIT VIAL (14:41)
[2018-07-02] MEDS ORDERED: HEPARIN 1000 UNITS/ML 10 ML INJ (14:42)
[2018-07-02] MEDS ORDERED: GELATIN SIZE 100 SPONGE (14:44)
[2018-07-02] MEDS ORDERED: ETOMIDATE 20 MG INJ (15:22)
[2018-07-02] MEDS ORDERED: EPINEPHrine 1 MG INJ (15:23)
[2018-07-02] MEDS ORDERED: DEXAMETHASONE 4 MG/ML 1 ML INJ (15:23)
[2018-07-02] MEDS ORDERED: ROPIVACAINE 0.5 % 30 ML VIAL (15:23)
[2018-07-02] MEDS ORDERED: DIPHENHYDRAMINE 50 MG INJ IV (15:30)
[2018-07-02] MEDS ORDERED: FENTAnyl 50 MCG/ML VIAL IV ×2 (15:30)
[2018-07-02] MEDS ORDERED: IPRATROPIUM (NEB) 0.5 MG/2.5 ML AMP HHN (15:30)
[2018-07-02] MEDS ORDERED: LEVALBUTEROL (NEB) 1.25 MG/0.5 ML AMP HHN (15:30)
[2018-07-02] MEDS ORDERED: ONDANSETRON 4 MG INJ IV (15:30)
[2018-07-02] MEDS ORDERED: HYDROmorphONE 1 MG/5 ML IV SYRINGE IV ×2 (15:30)
[2018-07-02] MEDS ORDERED: hydrALAzine 20 MG INJ IV (15:30)
[2018-07-02] MEDS: CEFTRIAXONE 1 GM/50 ML (PMX) 50 ML IVPB (17:47)
[2018-07-02] MEDS: HYDROCODONE/APAP (5/325) TAB PO (21:29)
[2018-07-03] MEDS: ACCUCHECK AT 2AM (Patients on SS coverage) XX (02:03)
[2018-07-03] MEDS: HYDROCODONE/APAP (5/325) TAB PO ×2 (03:51→09:50)
[2018-07-03] MEDS: ALTEPLASE (CATHFLO) 2 MG INJ CATHETER (05:04)
[2018-07-03] MEDS: hydrALAzine 20 MG INJ IV ×2 (06:08→12:37)
[2018-07-03] MEDS: HEPARIN 1000 UNITS/ML 10 ML INJ CATHETER (07:07)
[2018-07-03] MEDS: INSULIN ASPART [NOVOLOG] 3 ML PEN SC ×4 (07:49→21:03)
[2018-07-03 07:59] LABS: HEPATITIS B SURFACE ANTIGEN NEGATIVE (NEGATIVE)
[2018-07-03] MEDS: LOSARTAN 50 MG TAB PO (08:07)
[2018-07-03] MEDS: AMLODIPINE 10 MG TAB PO (08:10)
[2018-07-03] MEDS: ASPIRIN (EC) 81 MG TAB PO (08:10)
[2018-07-03] MEDS: ENOXAPARIN 30 MG/0.3 ML SYG SC (08:14)
[2018-07-03] MEDS: ACETAMINOPHEN 325 MG TAB PO (11:26)
[2018-07-03] MEDS: FAMOTIDINE 20 MG TAB PO (14:13)
[2018-07-03] MEDS: morphine 2 MG INJ IV (14:13)
[2018-07-03] MEDS: DIPHENHYDRAMINE 50 MG CAP PO (14:18)
[2018-07-03] MEDS: GABAPENTIN 100 MG CAP NGT ×2 (16:06→20:54)
[2018-07-03] MEDS: CEFTRIAXONE 1 GM/50 ML (PMX) 50 ML IVPB (17:22)
[2018-07-03] MEDS ORDERED: GABAPENTIN 100 MG CAP NGT (21:00)
[2018-07-03] MEDS: morphine 4 MG/ML VIAL IV (21:17)
[2018-07-04] MEDS: ACCUCHECK AT 2AM (Patients on SS coverage) XX (02:28)
[2018-07-04] MEDS: INSULIN ASPART [NOVOLOG] 3 ML PEN SC ×4 (07:55→21:00)
[2018-07-04] MEDS: FAMOTIDINE 20 MG TAB PO (08:37)
[2018-07-04] MEDS: ASPIRIN (EC) 81 MG TAB PO (08:37)
[2018-07-04] MEDS: GABAPENTIN 100 MG CAP NGT (08:38)
[2018-07-04] MEDS: AMLODIPINE 10 MG TAB PO (08:38)
[2018-07-04] MEDS: LOSARTAN 50 MG TAB PO (08:38)
[2018-07-04] MEDS: morphine 4 MG/ML VIAL IV (08:39)
[2018-07-04] MEDS: ENOXAPARIN 30 MG/0.3 ML SYG SC (08:50)
[2018-07-04] MEDS: GABAPENTIN 100 MG CAP PO ×3 (09:00→20:56)
[2018-07-04] MEDS: CEFTRIAXONE 1 GM/50 ML (PMX) 50 ML IVPB (17:47)
[2018-07-04] MEDS: SEVELAMER CARBONATE 800 MG TABLET PO (17:47)
[2018-07-04] MEDS: ALPRAZOLAM 0.25 MG TAB PO (20:56)
[2018-07-04] MEDS: hydrOXYzine HCL 25 MG TAB PO (20:56)
[2018-07-04] MEDS: HEPARIN 5,000 UNIT/0.5 ML VIAL SC (21:11)
[2018-07-04 22:43] LABS: ALANINE AMINOTRANSFERASE 19 IU/L (13-69); ALBUMIN 2.8 g/dl (3.3-4.9); ALBUMIN/GLOBULIN RATIO 0.82; ALKALINE PHOSPHATASE 84 IU/L (42-121); ANION GAP 16 (8-16); ASPARTATE AMINO TRANSFERASE 25 IU/L (15-46); BLOOD UREA NITROGEN 30 mg/dl (7-20); CALCIUM 7.9 mg/dl (8.4-10.2); CARBON DIOXIDE 24 mmol/L (21-31); CHLORIDE 99 mmol/L (97-110); CREATININE 4.79 mg/dl (0.44-1.00); GLUCOSE 164 mg/dl (70-220); MAGNESIUM 1.8 mg/dl (1.7-2.5); PHOSPHORUS 4.7 mg/dl (2.5-4.9); POTASSIUM 4.9 mmol/L (3.5-5.1); SODIUM 134 mmol/L (135-144); TOTAL PROTEIN 6.2 g/dl (6.1-8.1)
[2018-07-04 22:45] LABS: INR 0.94; PROTIME 12.7 Sec (11.9-14.9)
[2018-07-04 22:46] LABS: PARTIAL THROMBOPLASTIN TIME 30.2 Sec (25.0-35.0)
[2018-07-05] MEDS: ACCUCHECK AT 2AM (Patients on SS coverage) XX (02:00)
[2018-07-05] MEDS: HYDROCODONE/APAP (5/325) TAB PO ×2 (02:42→12:18)
[2018-07-05] MEDS: ACETAMINOPHEN 325 MG TAB PO (06:03)
[2018-07-05 07:17] LABS: PROTIME 13.3 Sec (11.9-14.9)
[2018-07-05 07:18] LABS: PARTIAL THROMBOPLASTIN TIME 29.6 Sec (25.0-35.0)
[2018-07-05 07:31] LABS: ALANINE AMINOTRANSFERASE 18 IU/L (13-69); ALBUMIN 2.7 g/dl (3.3-4.9); ALBUMIN/GLOBULIN RATIO 0.84; ALKALINE PHOSPHATASE 70 IU/L (42-121); ANION GAP 15 (8-16); ASPARTATE AMINO TRANSFERASE 25 IU/L (15-46); BLOOD UREA NITROGEN 32 mg/dl (7-20); CARBON DIOXIDE 22 mmol/L (21-31); CHLORIDE 101 mmol/L (97-110); CREATININE 4.97 mg/dl (0.44-1.00); GLUCOSE 98 mg/dl (70-220); MAGNESIUM 1.7 mg/dl (1.7-2.5); PHOSPHORUS 5.2 mg/dl (2.5-4.9); POTASSIUM 4.7 mmol/L (3.5-5.1); SODIUM 133 mmol/L (135-144); TOTAL PROTEIN 5.9 g/dl (6.1-8.1)
[2018-07-05] MEDS: INSULIN ASPART [NOVOLOG] 3 ML PEN SC (07:55)
[2018-07-05] MEDS: FAMOTIDINE 20 MG TAB PO (08:25)
[2018-07-05] MEDS: SEVELAMER CARBONATE 800 MG TABLET PO (08:25)
[2018-07-05] MEDS: ALPRAZOLAM 0.25 MG TAB PO (08:25)
[2018-07-05] MEDS: hydrOXYzine HCL 25 MG TAB PO (08:26)
[2018-07-05] MEDS: ASPIRIN (EC) 81 MG TAB PO (08:26)
[2018-07-05] MEDS: LOSARTAN 50 MG TAB PO (08:30)
[2018-07-05] MEDS: GABAPENTIN 100 MG CAP PO (08:30)
[2018-07-05] MEDS: AMLODIPINE 10 MG TAB PO (08:31)
[2018-07-05] MEDS: HEPARIN 5,000 UNIT/0.5 ML VIAL SC (08:39)
[2018-07-05] MEDS: HEPARIN 1000 UNITS/ML 10 ML INJ CATHETER (12:51)
[2018-07-05] MEDS ORDERED: EPOETIN 4000 UNITS/1 ML INJ (ESRD) SC (17:00)
== END 2018-07-05 14:24 | disposition home or self-care (01) | DRG 252 ==
LOC: E/R 13:44 → TEL 15:24
PROC: 03LY0ZZ Occlusion of Upper Artery, Open Approach (ICD-10-PCS; principal; 2018-07-02 15:19)
PROC: 5A1D70Z Performance of Urinary Filtration, Intermittent, Less than 6 Hours Per Day (ICD-10-PCS; 2018-07-02 15:19)
DX: T82.848A Pain due to vascular prosthetic devices, implants and grafts, initial encounter (principal); G92 Toxic encephalopathy; N18.6 End stage renal disease; N39.0 Urinary tract infection, site not specified; I12.0 Hypertensive chronic kidney disease with stage 5 chronic kidney disease or end stage renal disease; E87.1 Hypo-osmolality and hyponatremia; F03.90 Unspecified dementia, unspecified severity, without behavioral disturbance, psychotic disturbance, mood disturbance, and anxiety; D64.9 Anemia, unspecified; Z95.1 Presence of aortocoronary bypass graft; E78.5 Hyperlipidemia, unspecified; Z99.2 Dependence on renal dialysis; E11.9 Type 2 diabetes mellitus without complications
CPT/HCPCS: 36415; 71045; 80048; 80053; 81001; 82962; 83036; 83735; 84100; 84484; 85025; 85610; 85730; 86850; 86870; 86880; 86900; 86901; 87081; 87340; 90935; 92610; 93005; 96374; 96375; 99285-25; G0378